=== PATIENT | female | born 1975 | race Caucasian/White ===

== ENCOUNTER 2017-10-04 18:21 | Emergency (ER) | payer SELFPAY ==
[~2017-10-04] VITALS: Ht 170.2 cm; Wt 81.6 kg
[~2017-10-04 18:21] MED LIST: CYCLOBENZAPRINE10 MG PO; CYMBALTA30 MG PO; GABAPENTIN300 MG PO; MORPHINE SULFAT30 M2 PO; MS CONTIN15 MG PO
== END 2017-10-04 19:46 | disposition left against medical advice (07) ==
LOC: ER 18:21
DX: L02.414 Cutaneous abscess of left upper limb (principal); H00.011 Hordeolum externum right upper eyelid

== ENCOUNTER 2018-10-26 23:26 | Emergency (ER) | payer SELFPAY ==
[~2018-10-26] VITALS: Ht 170.2 cm; Wt 81.6 kg
--- OUTSIDE RECORDS SUMMARY | 2018-10-26 23:28 | XMS REPORT | Clinical Summary ---
Author Author [facility] Organization [facility] Address Unknown Phone Unavailable Care Team Providers Care Laminator Name Role Phone Santos Lopez MD PCP Allergies No Known Allergies Medications End Date Status Medication Sig Dispensed Refills Start Date Active famotidine (PEPCID) 20 mg Take 1 tablet 180 tablet 1 tabletIndications: GERD by mouth 2 4 (gastroesophageal reflux times daily disease) For heartburn. Active nalOXone (EVZIO) 0.4 0.4 mg by 1 Inhaler 0 mg/0.4 mL Injection 6 AtInIndications: Chronic route Use if pain disorder signs of overdose (excessive sleepiness, depressed respiration, constricted pupils). Active traZODone (DESYREL) 100 Take 1 to 2 60 tablet 3 mg tabletIndications: tablets by 7 Mood disorder mouth nightly at bedtime as needed for Sleep.. Active cetirizine (ZYRTEC) 10 mg Take 1 tablet 90 tablet 3 tabletIndications: by mouth 7 Chronic frontal sinusitis daily. Active DULoxetine (CYMBALTA) 60 1 orally 60 capsule 3 mg delayed release twice a day. 8 capsuleIndications: Chronic pain disorder, Mood disorder Active acetaminophen (TYLENOL) Take 2 15 tablet 0 325 mg tabletIndications: tablets by 9 Cellulitis of face mouth every 6 hours as needed for Pain. Active mometasone (NASONEX) 50 2 Sprays by 17 g 0 mcg/actuation nasal each nostril 9 sprayIndications: Facial route 2 times swelling daily. 11/09/2018 Active traMADol (ULTRAM) 50 mg Take 1 tablet 60 tablet 3 tabletIndications: by mouth 2 9 Cellulitis of face times daily as needed for up to 2 days for Pain (Severe pain). Active gabapentin (NEURONTIN) Take 1 tablet 270 tablet 3 800 mg tabletIndications: by mouth 3 9 Chronic low back pain times daily. with left-sided sciatica, unspecified back pain laterality, Sciatica, unspecified laterality 08/08/2018 Discontinued clindamycin (CLEOCIN-T) 1 Apply to 60 mL 1 % lotionIndications: Acne affected area 7 vulgaris 2 times daily On face. 08/12/2018 Discontinued cyclobenzaprine Take 1 tablet 90 tablet 0 (FLEXERIL) 10 mg by mouth 3 7 tabletIndications: times daily Chronic low back pain as needed for Muscle Spasms. 08/12/2018 Discontinued triamcinolone (KENALOG) Apply to 80 g 3 0.025 % affected area 7 ointmentIndications: 2 times daily Eczema, unspecified type to rash behind ear. USE SPARINGLY. Do not use for face, armpits or groin. 08/08/2018 Discontinued fluconazole (DIFLUCAN) Take 1 tablet 3 tablet 3 150 mg tabletIndications: by mouth 7 Chronic vaginitis daily for 3 days. Repeat in 7 days as needed. 08/12/2018 Discontinued ciclesonide (ZETONNA) 37 use 1 spray 6.1 g 6 mcg/actuation nasal HFA in each 7 inhaler nostril daily. autosubstitut ed for Flonase per P&T 08/12/2018 Discontinued ciclesonide (ZETONNA) 37 Use 1 [place] 6.1 g 6 mcg/actuation nasal HFA in each 7 inhalerIndications: nostril Chronic seasonal allergic daily. rhinitis due to pollen 08/12/2018 Discontinued oxyCODONE-acetaminophen Take 1 tablet 0 10-325 mg per tablet by mouth 3 times daily as needed for Pain. 08/14/2018 Discontinued gabapentin (NEURONTIN) Take 1.5 135 tablet 1 600 mg tabletIndications: tablets by 8 Chronic low back pain mouth 3 times with left-sided sciatica, daily For unspecified back pain chronic back laterality, Sciatica, pain. unspecified laterality 08/12/2018 Discontinued naproxen (NAPROSYN) 500 Take 1 tablet 20 tablet 0 mg tabletIndications: by mouth 2 9 Chronic pain disorder times daily (with meals). 08/12/2018 Discontinued hydrocortisone 1 % Apply to 30 g 0 ointmentIndications: Bug affected area 9 bite, initial encounter 2 times daily. 08/12/2018 Discontinued loratadine (CLARITIN) 10 Take 1 tablet 30 tablet 0 mg tabletIndications: by mouth 9 Sinus headache daily. 08/12/2018 Discontinued acetaminophen-codeine Take 1 tablet 10 tablet 0 (TYLENOL/CODEINE #3) by mouth 9 300-30 mg per every 4 hours tabletIndications: as needed for Chronic pain disorder Pain. 08/12/2018 Discontinued sulfamethoxazole-trimetho Take 1 tablet 10 tablet 0 prim (BACTRIM DS) 800-160 by mouth 2 9 mg per tabletIndications: times daily Skin infection for 5 days. 08/12/2018 Discontinued mupirocin (BACTROBAN) 2 % Apply to 22 g 0 ointmentIndications: Skin affected area 9 infection 3 times daily for 7 days. 08/12/2018 Discontinued fluconazole (DIFLUCAN) Take One 2 tablet 0 150 mg tabletIndications: Tablet by 9 Antibiotic-induced yeast mouth Today. infection May Repeat in 72 hours.. 08/19/2018 acyclovir (ZOVIRAX) 200 Take 2 42 capsule 0 mg capsuleIndications: capsules by 9 Genital ulcer, female mouth 3 times daily for 7 days. 08/12/2018 Discontinued mupirocin calcium Apply to 15 g 2 (BACTROBAN) 2 % topical affected area 9 creamIndications: 2 times Cellulitis of face daily. 08/17/2018 ofloxacin (FLOXIN) 0.3 % Instill 3 5 mL 0 otic solutionIndications: Drops in each 9 Bug bite, initial ear 2 times encounter daily for 5 days. 08/25/2018 ofloxacin (OCUFLOX) 0.3 % Instill 2 5 mL 0 ophthalmic Drops in each 9 solutionIndications: Bug eye 4 times bite, initial encounter daily for 5 days. 08/14/2018 Discontinued traMADol (ULTRAM) 50 mg Take 1 tablet 30 tablet 0 tabletIndications: by mouth 9 Cellulitis of face every 8 hours as needed for up to 2 days for Pain (Severe pain). 08/22/2018 cephALEXin (KEFLEX) 500 Take 1 40 capsule 0 mg capsuleIndications: capsule by 9 Cellulitis of face mouth 4 times daily for 10 days. 08/22/2018 sulfamethoxazole-trimetho Take 1 tablet 20 tablet 0 prim (BACTRIM DS) 800-160 by mouth 2 9 mg per tabletIndications: times daily Cellulitis of face for 10 days. 08/22/2018 fluconazole (DIFLUCAN) Take 1 tablet 10 tablet 0 150 mg tabletIndications: by mouth 9 Facial abscess daily for 10 days. 08/19/2018 mupirocin (BACTROBAN) 2 % Apply to 22 g 0 ointmentIndications: affected area 9 Facial swelling 3 times daily for 7 days. 08/14/2018 Discontinued traMADol (ULTRAM) 50 mg Take 1 tablet 10 tablet 0 tabletIndications: Facial by mouth 9 swelling every 6 hours as needed for up to 3 days for Pain. 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 Amphetamine use disorder, moderate, dependence 07/31/2015 Acne vulgaris 04/09/2014 Vaginal discharge 09/23/2013 Adnexal pain 09/23/2013 Fracture, tooth 08/18/2013 Impaired fasting blood sugar 10/22/2012 Hypercholesterolemia 10/22/2012 Abnormal mammogram, unspecified 06/30/2012 Chronic pain disorder 06/30/2012 Health maintenance examination 06/30/2012 Routine health maintenance 07/25/2010 Substance induced mood disorder 07/25/2010 Agitation requiring sedation protocol Chronic prescription opiate use Amphetamine intoxication with perceptual disturbance Suicidal ideation Bug bite Facial swelling Genital ulcer, female 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 Inadequate pain control Encounters Care Team Description Date Type Specialty Santos Lopez MD Visit for screening mammogram (Primary Dx); Cellulitis of face; Chronic low back pain with left-sided sciatica, unspecified back pain laterality; Sciatica, unspecified laterality 08/14/2018 Office Visit Family Practice 08/14/2018 Travel Phuc Calixto DO Aisenberg, Gabriel M, MD Devidi, Manjari, MD Facial swelling (Primary Dx); Bug bite, initial encounter; Acute bacterial conjunctivitis of both eyes; Acute diffuse otitis externa of right ear; Cellulitis of face; Genital ulcer, female; Facial abscess 08/09/2018 Hospital - Encounter 08/12/2018 08/09/2018 Travel Verónica Schaffer NP Skin infection (Primary Dx); Antibiotic-induced yeast infection 08/08/2018 Same Day Family Practice 08/08/2018 Travel Chela Langston PA Kuo, Dick C, MD Bug bite, initial encounter (Primary Dx); Chronic pain disorder; Amphetamine use disorder, moderate, dependence; Moderate episode of recurrent major depressive disorder; Suicidal ideation; Sinus headache; Polysubstance abuse 07/24/2018 Emergency Emergency Medicine 07/24/2018 Travel after 10/25/2017 Immunizations Name Administration Dates Next Due Td Tetanus, diphtheria 08/25/2010 Toxoids Vaccine Family History Medical History Relation Name Comments Diabetes Father Heart Father Arthritis Mother Relation Name Status Comments Brother Alive 1 Father Mother Alive Sister Alive 1 Social History Date Tobacco Use Types Packs/Day Years Used Never Smoker Smokeless Tobacco: Never Used Tobacco Cessation: Counseling Given: No Drinks/Week oz/Week Comments Alcohol Use No Food Insecurity Answer Date Recorded Within the past 12 months, you worried that your Never true 01/01/2017 food would run out before you got money to buy more. Within the past 12 months, the food you bought Never true 01/01/2017 just didn't last and you didn't have money to get more. Sex Assigned at Date Recorded Not on file Industry Job Start Date Occupation Not on file Not on file Not on file Travel End Travel History Travel Start No recent travel history available. Last Filed Vital Signs Reading Time Taken Comments Vital Sign 107/69 08/14/2018 10:53 AM CDT Blood Pressure 80 08/14/2018 10:53 AM CDT Pulse 37.1 C (98.8 F) 08/14/2018 10:53 AM CDT Temperature 20 08/14/2018 10:53 AM CDT Respiratory Rate 97% 08/09/2018 6:31 PM CDT Oxygen Saturation - - Inhaled Oxygen Concentration 85.7 kg (189 lb) 08/14/2018 10:53 AM CDT Weight 171 cm (5' 7.32") 08/14/2018 10:53 AM CDT Height 29.32 08/14/2018 10:53 AM CDT Body Mass Index Plan of Treatment Care Team Description Date Type Specialty Linda Bell MD [address] [place] [address] requesting this location per (social welfare research worker) 10/28/2018 Office Visit Psychiatry Santos Lopez MD [address] [place] [address] 12/19/2018 Appointment Radiology Health Maintenance Due Date Last Done Comments Breast Cancer Scrn 2015 01/23/2012 (Yearly) IMM Influenza Seasonal 11/25/2018Nov to April (>/=19 yrs) Cervical Cancer Scrn (3 01/02/2020 01/01/2017 (Previously completed - Yrs) External), 09/23/2013 (Previously completed - External) Goals Goal Patient Associated Recent Progress Patient-Stat Author Goal Type Problems ed? Increase Physical Activity Lifestyle No Ayesha Durand Procedures Comments Procedure Name Priority Date/Time Associated Diagnosis DIFFERENTIAL, MANUAL-WAM Add-on 08/12/2018 4:55 AM CDT CBC Routine 08/12/2018 4:55 AM CDT MAGNESIUM Routine 08/12/2018 4:55 AM CDT PHOSPHORUS Routine 08/12/2018 4:55 AM CDT CBC/DIFF Routine 08/12/2018 4:55 AM CDT CALCIUM, IONIZED Routine 08/12/2018 4:55 AM CDT BASIC METABOLIC PANEL Routine 08/12/2018 4:55 AM CDT CBC Routine 08/11/2018 4:08 AM CDT PHOSPHORUS Routine 08/11/2018 4:08 AM CDT MAGNESIUM Routine 08/11/2018 4:08 AM CDT CBC/DIFF Routine 08/11/2018 4:08 AM CDT CALCIUM, IONIZED Routine 08/11/2018 4:08 AM CDT BASIC METABOLIC PANEL Routine 08/11/2018 4:08 AM CDT HUMAN HERPES VIRUS 6 PCR Routine 08/10/2018 1:47 PM CDT WOUND/ABSCESS CULTURE AND Routine 08/10/2018 GRAM STAIN 1:19 PM CDT WOUND/ABSCESS CULTURE AND Routine 08/10/2018 GRAM STAIN 1:19 PM CDT URINE DRUG SCREEN STAT 08/10/2018 12:26 PM CDT CHLAM/GC DNA AMPLI STAT 08/10/2018 12:25 PM CDT GONORRHEAE CULTURE Routine 08/10/2018 9:36 AM CDT FREE T4 Add-on 08/10/2018 4:23 AM CDT THYROID STIMULATING Add-on 08/10/2018 HORMONE (TSH) 4:23 AM CDT HEMOGLOBIN A1C Add-on 08/10/2018 4:23 AM CDT CBC Routine 08/10/2018 4:23 AM CDT VANCOMYCIN, TROUGH Routine 08/10/2018 4:23 AM CDT HEMOGLOBIN A1C Routine 08/10/2018 4:23 AM CDT HEPATITIS PANEL Routine 08/10/2018 4:23 AM CDT CBC/DIFF Routine 08/10/2018 4:23 AM CDT CALCIUM, IONIZED Routine 08/10/2018 4:23 AM CDT PHOSPHORUS Routine 08/10/2018 4:23 AM CDT MAGNESIUM Routine 08/10/2018 4:23 AM CDT COMPREHENSIVE METABOLIC Routine 08/10/2018 PANEL 4:23 AM CDT BLOOD CULTURE Timed 08/09/2018 6:29 PM CDT BLOOD CULTURE Timed 08/09/2018 6:28 PM CDT URINE DRUG SCREEN STAT 08/09/2018 6:28 PM CDT VANCOMYCIN, TROUGH Add-on 08/09/2018 3:59 PM CDT SYPHILIS SCREEN FOR STAT 08/09/2018 INFECTION 3:59 PM CDT XRAY CHEST 1 VIEW STAT 08/09/2018 Bug bite, initial 3:[address] MAXILLOFACIAL W STAT 08/09/2018 Facial swelling CONTRAST 2:29 PM CDT POCT URINE DIPSTICK - STAT 08/09/2018 2:22 PM CDT CBC STAT 08/09/2018 1:56 PM CDT CBC/DIFF STAT 08/09/2018 1:56 PM CDT BMP POC Routine 08/09/2018 1:55 PM CDT VBG POC Routine 08/09/2018 1:55 PM CDT BMP POC Routine 07/24/2018 1:09 PM CDT CBC/DIFF STAT 07/24/2018 12:50 PM CDT after 10/25/2017 Results * CBC (08/12/2018 4:55 AM CDT) Only the most recent of 4 results within the time period is included. WBC 8.0 4.5 - 11.0 K/uL [facility] RBC 3.34 (L) 4.20 - 5.40 M/uL [facility] Hemoglobin 10.0 (L) 12.0 - 16.0 g/dL [facility] Hematocrit 30.4 (L) 37.0 - 47.0 % [facility] MCV 91.0 82.0 - 92.0 fL [facility] MCH 29.9 27.0 - 32.0 pg [facility] MCHC 32.9 32.0 - 36.0 g/dL [facility] RDW 39.8 36.4 - 46.3 fL [facility] Platelet 257 150 - 400 K/uL [facility] Mean Platelet 9.5 9.4 - 12.4 fL [facility] Volume Percent NRBC 0.0 % [facility] Absolute NRBC 0.00 K/uL [facility] Specimen Blood Performing Organization Address City/State/Zipcode Phone Number [facility] [address] [place] [address] * DIFFERENTIAL, MANUAL-WAM (08/12/2018 4:55 AM CDT) Pathologist [facility] WBC 4.5 - 11.0 K/uL [facility] Neutrophil 72.0 (H) 34.0 - 70.0 % [facility] Lymphs 16.0 (L) 20.0 - 50.0 % [facility] Monocytes 9.0 5.0 - 12.0 % [facility] Eos 2.0 0.7 - 5.0 % [facility] Basos 0.0 (L) 0.1 - 1.2 % [facility] Atypical Lymph 1.0 (H) <=0.0 % [facility] Neutrophils 5.74 1.56 - 6.13 K/uL [facility] (Absolute) Lymphs 1.28 1.18 - 3.74 K/uL [facility] (Absolute) Monocytes(Absol 0.72 (H) 0.24 - 0.36 K/uL [facility] suzanna) Eos (Absolute) 0.16 0.04 - 0.36 K/uL [facility] Baso (Absolute) 0.00 (L) 0.01 - 0.08 K/uL [facility] Cells Counted [facility] Specimen Blood Performing Organization Address [facility] Phone Number [facility] [address] [place] [phone] * PHOSPHORUS (08/12/2018 4:55 AM CDT) Only the most recent of 3 results within the time period is included. Phosphorus 3.8 2.5 - 5.0 mg/dL [facility] Specimen Blood Performing Organization Address [facility] Phone Number [facility] [address] [place] [address] * MAGNESIUM (08/12/2018 4:55 AM CDT) Only the most recent of 3 results within the time period is included. Magnesium 1.8 (L) 1.9 - 2.7 mg/dL [facility] Specimen Blood Performing Organization Address [facility] Phone Number [facility] [address] [place] [address] * CALCIUM, IONIZED (08/12/2018 4:55 AM CDT) Only the most recent of 3 results within the time period is included. Calcium, 1.16 1.15 - 1.29 mmol/L [facility] Ionized Specimen Blood Performing Organization Address [facility] Phone Number [facility] [address] [place] [phone] * BASIC METABOLIC PANEL (08/12/2018 4:55 AM CDT) Only the most recent of 2 results within the time period is included. Sodium 141 136 - 145 mmol/L [facility] Potassium 3.7 3.5 - 5.1 mmol/L [facility] Chloride 101 98 - 107 mmol/L [facility] CO2 30 21 - 31 mmol/L [facility] Urea Nitrogen 13.0 7.0 - 25.0 mg/dL [facility] Creatinine 0.6 0.6 - 1.2 mg/dL [facility] Glucose 91 70 - 110 mg/dL [facility] Calcium, Total 8.1 (L) 8.6 - 10.3 mg/dL [facility] GFR, Estimated >60 mL/min/1.73 m2 [facility] Anion Gap 10 5 - 16 mmol/L [facility] Specimen Blood Performing Organization Address City/State/Zipcode Phone Number [facility] [address] [place], [place] [phone] * HUMAN HERPES VIRUS 6 PCR (08/10/2018 1:47 PM CDT) Pathologist [facility] Human Herpes Negative [facility] Virus 6 PCR Comment: This test was developed and its performance characteristics determined by [facility].It has not been cleared or approved by the Food and Drug Administration.The FDA has determined that such clearance or approval is not necessary. Specimen Other (Specify in Comments) - Vagina Narrative Performed At Performed at: - [facility] [address] [place], [id number] Arc Welding Machine Operator: Kerry Pryor MD, Phone:[phone] Specimen Comment: A duplicate report has been generated due to demographic updates. Performing Organization Address City/[facility] Phone Number [facility] [address] [place] [address] * WOUND/ABSCESS CULTURE AND GRAM STAIN (08/10/2018 1:19 PM CDT) Only the most recent of 2 results within the time period is included. Wound Culture METHICILLIN RESISTANT [facility] STAPHYLOCOCCUS AUREUS (AA) [facility] Wound Culture CORYNEBACTERIUM (A) [facility] Wound Culture ENTEROCOCCUS FAECALIS (A) [facility] Wound Culture EDIN DUBLINIENSIS (A) [facility] Gram Stain 4+ WBCs [facility] Gram Stain 4+ Gram positive cocci [facility] Gram Stain 4+ Gram variable rods [facility] Gram Stain 1+ Yeast [facility] Specimen Drainage - Auditory canal, Right Antibiotic Method Susceptibility Organism Clindamycin Resistant Methicillin resistant Staphylococcus aureus Comment: Corrected result: Previously reported as Susceptible (<=0.5 ug/mL) on 08/13/2018 at 1529 CDT. Inducible Clindamycin Resistance POSITIVE Methicillin resistant Staphylococcus aureus Erythromycin >4 ug/mL: Resistant Methicillin resistant Staphylococcus aureus Levofloxacin <=1 ug/mL: Susceptible Methicillin resistant Staphylococcus aureus Oxacillin >2 ug/mL: Resistant Methicillin resistant Staphylococcus aureus Penicillin G >1 ug/mL: Resistant Methicillin resistant Staphylococcus aureus Rifampin <=0.5 ug/mL: Susceptible Methicillin resistant Staphylococcus aureus Trimethoprim-Sulfamethoxazole <=0.5/9.5 ug/mL: Susceptible Methicillin resistant Staphylococcus aureus Tetracycline <=0.5 ug/mL: Susceptible Methicillin resistant Staphylococcus aureus Vancomycin 1 ug/mL: Susceptible Methicillin resistant Staphylococcus aureus Ampicillin 1 ug/mL: Susceptible Enterococcus faecalis Daptomycin 2 ug/mL: Susceptible Enterococcus faecalis Gentamicin-Synergy <=500 ug/mL: Susceptible Enterococcus faecalis Linezolid <=1 ug/mL: Susceptible Enterococcus faecalis Streptomycin Synergy <=1,000 ug/mL: Susceptible Enterococcus faecalis Tetracycline >8 ug/mL: Resistant Enterococcus faecalis Vancomycin 2 ug/mL: Susceptible Enterococcus faecalis Performing Organization Address [facility] Phone Number [facility] [address] [place] [address] * URINE DRUG SCREEN (08/10/2018 12:26 PM CDT) Only the most recent of 2 results within the time period is included. Opiate, Ur Negative Negative [facility] Comment: Calibrated Standard: Morphine Positive if urine level > lo=103 ng/dL Amphetamine Negative Negative [facility] Comment: Calibrated Standard: D-Methamphetamine Positive if urine level > tl=9531 ng/mL Barbiturate Negative Negative [facility] Comment: Calibrated Standard: Secobarbital Positive if urine level is > kf=727 ng/mL Benzodiazepine Negative Negative [facility] Comment: Calibrated Standard: Lormethazepam Positive if urine level is > hs=066 ng/mL Cocaine Negative Negative [facility] Comment: Calibrated Standard: Benzoylecgonine Positive if urine level > gc=400 ng/dL PCP Negative Negative [facility] Comment: Calibrated Standard: Phencyclidine Positive if urine level > or=25 ng/dL Cannabinoid Negative Negative [facility] Comment: Calibrated Standard: 11 nor-delta(9)-THC carboxylic acid Positive if urine level > or=50 ng/mL Specimen Urine - Voided, urine Performing Organization Address [facility] Phone Number [facility] [address] [place] [address] * CHLAM/GC DNA AMPLI (08/10/2018 12:25 PM CDT) Chlamydia Negative Negative [facility] trachomatis [facility] N. gonorrhoeae Negative Negative [facility] Specimen Genital - Voided, urine Narrative Performed At This test utilizes True&Co Aptima Combo 2 Assay for target amplification of rRNA [facility] for the qualitative detection of Chlamydia trachomatis and Neisseria gonorrhoeae. Performing Organization Address [facility] Phone Number [facility] [address] [place] [address] * GONORRHEAE CULTURE (08/10/2018 9:36 AM CDT) [facility] GC Culture No Neisseria gonorrhoeae [facility] isolated [facility] Specimen Eye - Eye, left Performing Organization Address [facility] Phone Number [facility] [address] [place] [address] * HEMOGLOBIN A1C (08/10/2018 4:23 AM CDT) Only the most recent of 2 results within the time period is included. [facility] Hemoglobin A1c 5.4 4.3 - 6.1 % [facility] Estimated 108 70 - 110 mg/dL [facility] Average Glucose Specimen Blood Performing Organization Address [facility] Phone [facility] [address] [place] [address] * COMPREHENSIVE METABOLIC PANEL (08/10/2018 4:23 AM CDT) [facility] Sodium 137 136 - 145 mmol/L [facility] Potassium 3.6 3.5 - 5.1 mmol/L [facility] Chloride 102 98 - 107 mmol/L [facility] CO2 32 (H) 21 - 31 mmol/L [facility] Glucose 124 (H) 70 - 110 mg/dL [facility] Calcium, Total 7.4 (L) 8.6 - 10.3 mg/dL [facility] Urea Nitrogen 14.0 7.0 - 25.0 mg/dL [facility] Creatinine 0.6 0.6 - 1.2 mg/dL [facility] Alkaline 41 34 - 104 U/L [facility] Phosphatase ALT 9 7 - 52 U/L [facility] AST 14 13 - 39 U/L [facility] Total Bilirubin 0.5 0.2 - 1.2 mg/dL [facility] Total Protein 4.7 (L) 6.0 - 8.3 g/dL [facility] GFR, Estimated >60 mL/min/1.73 m2 [facility] Albumin 2.6 (L) 3.7 - 5.3 g/dL [facility] Anion Gap 3 (L) 5 - 16 mmol/L [facility] Specimen Blood Narrative Performed At Please draw vanc trough 30 minutes prior to 4th vanc dose. [facility] Performing Organization Address [facility] Phone Number [facility] [address] [place], [place] [id number] * THYROID STIMULATING HORMONE (TSH) (08/10/2018 4:23 AM CDT) TSH 0.43 (L) 0.57 - 3.74 uIU/mL [facility] Comment: If , please see the following reference ranges (not verified by lab): 1st Trimester: 0.05 -3.70 uIU/mL 2nd Trimester: 0.31 -4.35 uIU/mL 3rd Trimester: 0.41 - 5.18 uIU/mL Specimen Blood Narrative Performed At Please draw vanc trough 30 minutes prior to 4th vanc dose. [facility] Performing Organization Address [facility] Phone Number [facility] [address] [place] [phone] * FREE T4 (08/10/2018 4:23 AM CDT) Free T4 0.97 0.61 - 1.18 ng/dl [facility] Specimen Blood Narrative Performed At Please draw vanc trough 30 minutes prior to 4th vanc dose. [facility] Performing Organization [facility] Phone Number [facility] [address] [place] [address] * VANCOMYCIN, TROUGH (08/10/2018 4:23 AM CDT) Only the most recent of 2 results within the time period is included. Vancomycin, 7.4 (L) 10.0 - 20.0 ug/mL [facility] Trough Specimen Blood Narrative Performed At Please draw vanc trough 30 minutes prior to 4th vanc dose. [facility] Performing Organization Address [facility] Phone [facility] [address] [place] [address] * HEPATITIS PANEL (08/10/2018 4:23 AM CDT) Hep C Vir Ab Negative Negative [facility] Hep B Surface Negative Negative [facility] Hep A Vir Ab Negative Negative [facility] Hep B Core Ab Negative Negative [facility] Specimen Blood Performing Organization Address City/[facility] Phone [facility] [address] [place] [address] * BLOOD CULTURE (08/09/2018 6:29 PM CDT) Only the most recent of 2 results within the time period is included. Blood Culture No growth 5 days [facility] Specimen Blood - Arm, right Performing Organization Address [facility] Phone Number [facility] [address] [place] [address] * SYPHILIS SCREEN FOR INFECTION (08/09/2018 3:59 PM CDT) TPA NEGATIVE Negative, Equivocal [facility] Final Report NEGATIVE Negative [facility] Specimen Blood Performing Organization Address [facility] Phone Number [facility] [address] [place] [address] * XRAY CHEST 1 VIEW (08/09/2018 3:30 PM CDT) Specimen Impressions Performed At IMPRESSION: SMS Ill-defined questionable haziness along the medial right lower lung. Dedicated two-view chest x-ray is recommended. This [facility] radiology report is a preliminary resident dictation until finalized by an attending.Changes to this preliminary report may occur in an additional preliminary or finalized version. Dictated By: Arelis Adams MD, 08/09/2018 4:02 PM I have reviewed the study and agree with the findings in this report. Signed By: Shruthi Crump MD, 08/09/2018 4:05 PM Narrative Performed At EXAM: XR CHEST 1 VIEW [facility] DATE: 08/09/2018 3:35 PM INDICATION: hypoxia. Bug bite, initial encounter COMPARISON: None TECHNIQUE: AP chest FINDINGS: Lines, tubes and hardware: None. Lungs and pleura: Given for slight low lung volumes, ill-defined haziness overlying the medial right lower lung. The costophrenic sulci are sharp, without pleural effusion. No pneumothorax. Heart and mediastinum: The cardiomediastinal silhouette is unremarkable. Bones: No acute bony abnormality. Procedure Note Interface, Rad/Mammog In - 08/09/2018 4:10 PM CDT EXAM: XR CHEST 1 VIEW DATE: 08/09/2018 3:35 PM INDICATION: hypoxia. Bug bite, initial encounter COMPARISON: None TECHNIQUE: AP chest FINDINGS: Lines, tubes and hardware: None. Lungs and pleura: Given for slight low lung volumes, ill-defined haziness overlying the medial right lower lung. The costophrenic sulci are sharp, without pleural effusion. No pneumothorax. Heart and mediastinum: The cardiomediastinal silhouette is unremarkable. Bones: No acute bony abnormality. IMPRESSION IMPRESSION: Ill-defined questionable haziness along the medial right lower lung. Dedicated two-view chest x-ray is recommended. This [facility] radiology report is a preliminary resident dictation until finalized by an attending. Changes to this preliminary report may occur in an additional preliminary or finalized version. Dictated By: Arelis Adams MD, 08/09/2018 4:02 PM I have reviewed the study and agree with the findings in this report. Signed By: Shruthi Crump MD, 08/09/2018 4:05 PM Performing Organization Address City/State/Zipcode Phone Number SMS * CT MAXILLOFACIAL W CONTRAST (08/09/2018 2:29 PM CDT) Specimen Impressions Performed At IMPRESSION: SMS 1.Diffuse right facial subcutaneous fat stranding and edema with thickening of the fat pad, consistent with cellulitis. No organized abscess or drainable fluid collections at this time 2.Submandibular lymphadenopathy, right greater than left, likely reactive This [facility] radiology report is a preliminary resident dictation until finalized by an attending.Changes to this preliminary report may occur in an additional preliminary or finalized version. Dictated By: Arelis Adams MD, 08/09/2018 3:00 PM I have reviewed the study and agree with the findings in this report. Signed By: Galen Velez MD, 08/09/2018 3:32 PM Narrative Performed At EXAM: CT FACE WITH CONTRAST [facility] DATE: 08/09/2018 2:30 PM INDICATION: Maxillary, facial abscess. Facial swelling COMPARISON: None. TECHNIQUE: Volumetric CT of the face is acquired with contrast. Axial, coronal and sagittal images are provided. IV contrast: 100 mL Omnipaque 300 DLP: 960.17 FINDINGS: There is diffuse right facial subcutaneous fat stranding and swelling, with thickening of the fat pad. No organized abscess or drainable fluid collection is identified. Multiple enlarged lymph nodes are present, right greater than left. Example includes a right submandibular lymph node measuring up to 1 cm x 1.2 cm (series 3 image 9). The airway is patent without lesions. Carotid and vertebral arteries are patent. Jugular veins are patent. No acute intraorbital abnormalities. No acute osseous abnormalities. Procedure Note Interface, Rad/Mammog In - 08/09/2018 3:37 PM CDT EXAM: CT FACE WITH CONTRAST DATE: 08/09/2018 2:30 PM INDICATION: Maxillary, facial abscess. Facial swelling COMPARISON: None. TECHNIQUE: Volumetric CT of the face is acquired with contrast. Axial, coronal and sagittal images are provided. IV contrast: 100 mL Omnipaque 300 DLP: 960.17 FINDINGS: There is diffuse right facial subcutaneous fat stranding and swelling, with thickening of the fat pad. No organized abscess or drainable fluid collection is identified. Multiple enlarged lymph nodes are present, right greater than left. Example includes a right submandibular lymph node measuring up to 1 cm x 1.2 cm (series 3 image 9). The airway is patent without lesions. Carotid and vertebral arteries are patent. Jugular veins are patent. No acute intraorbital abnormalities. No acute osseous abnormalities. IMPRESSION IMPRESSION: 1. Diffuse right facial subcutaneous fat stranding and edema with thickening of the fat pad, consistent with cellulitis. No organized abscess or drainable fluid collections at this time 2. Submandibular lymphadenopathy, right greater than left, likely reactive This [facility] radiology report is a preliminary resident dictation until finalized by an attending. Changes to this preliminary report may occur in an additional preliminary or finalized version. Dictated By: Arelis Adams MD, 08/09/2018 3:00 PM I have reviewed the study and agree with the findings in this report. Signed By: Galen Velez MD, 08/09/2018 3:32 PM Performing Organization Address City/State/Zipcode Phone Number SMS * POCT URINE DIPSTICK - (08/09/2018 2:22 PM CDT) pass Control negative * VBG POC (08/09/2018 1:55 PM CDT) pH, Jaime POC 7.49 (H) 7.33 - 7.43 [facility] HCO3, Jaime POC 31 (H) 22 - 26 mmol/L [facility] TCO2, POC 33 (H) 21 - 32 mmol/L [facility] PO2, Venous POC 20 (L) 50 - 75 mm Hg [facility] ([facility]) pCO2,Jaime POC 41.1 38 - 50 mmHg [facility] Base Excess Jaime 7 mmol/L [facility] POC Sample Type IVEN [facility] Lactic Acid POC 1.0 0.4 - 2.0 mmol/L [facility] % Sat, Jaime POC 37 % [facility] Specimen Blood, venous Performing Organization Address [facility] Phone Number [facility] [address] [place], [place] [phone] * [facility] POC (08/09/2018 1:55 PM CDT) Sodium POC 133 (L) 136 - 145 mmol/L [facility] Potassium POC 4.0 3.5 - 5.1 mmol/L [facility] Chloride POC 94 (L) 98 - 107 mmol/L [facility] TCO2 POC 32 21 - 32 mmol/L [facility] Urea Nitrogen 17 7 - 18 mg/dL [facility] POC Creatinine POC 0.7 0.6 - 1.3 mg/dL [facility] Glucose POC 121 (H) 74 - 106 mg/dL [facility] Ionized Calcium 0.99 (L) 1.15 - 1.29 mmol/L [facility] POC GFR, Estimated >60 mL/min/1.73 m2 [facility] Hemoglobin POC 12.6 12 - 16 g/dL [facility] Hematocrit POC 37.0 37.0 - 47.0 % [facility] Specimen Blood, venous Performing Organization Address [facility] Phone Number [facility] [address] [place], [place] [phone] * [facility] POC (07/24/2018 1:09 PM CDT) CO2 POC 27 21 - 32 mmol/L [facility] Chloride POC 98 98 - 107 mmol/L [facility] Potassium POC 3.5 3.50 - 5.10 mmol/L [facility] Sodium POC 136 136 - 145 mmol/L [facility] Glucose POC 83 74 - 106 mg/dL [facility] Urea Nitrogen 23 (H) 7 - 18 mg/dL [facility] POC 1 Creatinine POC 0.6 0.6 - 1.3 mg/dL [facility] Calcium Ionized 1.16 1.15 - 1.29 mmol/L [facility] POC 1 Hemoglobin POC 12.6 12.0 - 16.0 g/dL [facility] Hematocrit POC 37.0 37.0 - 47.0 % [facility] GFR, Estimated >60 mL/min/1.73 m2 [facility] GFR, Estim, >60 mL/min/1.73 m2 [facility] Afr-Am 1 Specimen Performing Organization Address City/State/Zipcode Phone Number [facility] * CBC/DIFF (07/24/2018 12:50 PM CDT) WBC 10.0 4.5 - 11.0 K/uL [facility] RBC 3.76 (L) 4.20 - 5.40 M/uL [facility] Hemoglobin 11.9 (L) 12.0 - 16.0 g/dL [facility] Hematocrit 34.4 (L) 37.0 - 47.0 % [facility] MCV 92 82 - 92 fL [facility] MCH 31.6 27.0 - 32.0 pg [facility] MCHC 34.6 32.0 - 36.0 g/dL [facility] RDW 41.9 36.4 - 46.3 fL [facility] Platelets 277 150 - 400 K/uL [facility] Mean Platelet 9.5 9.4 - 12.4 fL [facility] Volume 2 Percent NRBC 0.0 [facility] Absolute NRBC 0.00 [facility] Neutrophils 71.8 (H) 34.0 - 70.0 % [facility] Lymphs 17.9 (L) 20.0 - 50.0 % [facility] Monocytes 8.2 5.0 - 12.0 % [facility] Eos 1.6 0.7 - 5.0 % [facility] Basos 0.2 0.1 - 1.2 % [facility] Immature 0.3 0.0 - 0.5 [facility] Granulocytes 2 Neutrophils 7.15 (H) 1.56 - 6.13 K/uL [facility] (Absolute) 2 Lymphs 1.78 1.18 - 3.74 K/uL [facility] (Absolute) 2 Monocytes(Absol 0.82 (H) 0.24 - 0.36 K/uL [facility] suzanna) 2 Eos (Absolute) 0.16 0.04 - 0.36 K/uL [facility] Baso (Absolute) 0.02 0.01 - 0.08 K/uL [facility] Immature Grans 0.03 0.00 - 0.03 K/uL [facility] (Abs) 2 Specimen Blood Performing Organization Address City/State/Zipcode Phone Number [facility] after 10/25/2017 Insurance Type Payer Benefit Subscriber ID Effective Phone Address Plan / Dates Group [employer] HOMELESS xxxxxx 2018- [phone] [id number] [place] [address] Advance Directives Date Inactivated Comments Code Status Date Activated 08/12/2018 1:33 PM Full Code 08/09/2018 5:37 PM
--- OUTSIDE RECORDS SUMMARY | 2018-10-26 23:29 | XMS REPORT | Clinical Summary ---
Author Author [facility] Organization [facility] Address Unknown Phone Unavailable Care Team Providers Care Clinical Safety Manager Name Role Phone Asked, No Pcp PCP Unavailable Allergies No Known Allergies Medications End Date Status Medication Sig Dispensed Refills Start Date Active ibuprofen (ADVIL,MOTRIN) Take 1 tablet 20 tablet 0 600 MG tablet (600 mg 8 total) by mouth every 6 (six) hours as needed for mild pain for up to 20 doses. Active Problems Not on file Encounters Care Team Description Date Type Specialty Rito Fang MD Polysubstance abuse (HCC) (Primary Dx) 06/25/2018 Emergency Emergency Medicine after 10/25/2017 Social History Date Tobacco Use Types Packs/Day Years Used Current Some Day Smoker Smokeless Tobacco: Current User Drinks/Week oz/Week Comments Alcohol Use No Sex Assigned at Date Recorded Not on file Industry Job Start Date Occupation Not on file Not on file Not on file Travel End Travel History Travel Start No recent travel history available. Last Filed Vital Signs Reading Time Taken Comments Vital Sign 127/77 06/25/2018 1:30 PM CDT Blood Pressure 80 06/25/2018 1:30 PM CDT Pulse 36.7 C (98 F) 06/25/2018 10:19 AM CDT Temperature 16 06/25/2018 1:30 PM CDT Respiratory Rate 99% 06/25/2018 1:30 PM CDT Oxygen Saturation - - Inhaled Oxygen Concentration - - Weight 170.2 cm (5' 7") 06/25/2018 10:19 AM CDT Height - - Body Mass Index Plan of Treatment Not on file Procedures Comments Procedure Name Priority Date/Time Associated Diagnosis GRAM STAIN STAT 06/25/2018 11:27 AM CDT URINE CULTURE STAT 06/25/2018 11:27 AM CDT ESTIMATED GFR STAT 06/25/2018 10:55 AM CDT SALICYLATE LEVEL STAT 06/25/2018 10:55 AM CDT ACETAMINOPHEN LEVEL STAT 06/25/2018 10:55 AM CDT HCG QUALITATIVE, SERUM STAT 06/25/2018 SCREEN 10:55 AM CDT URINE DRUGS OF ABUSE STAT 06/25/2018 SCREEN 10:55 AM CDT ALCOHOL LEVEL, BLOOD STAT 06/25/2018 10:55 AM CDT URINALYSIS SCREEN AND STAT 06/25/2018 MICROSCOPY, WITH REFLEX 10:55 AM CDT TO CULTURE T4, FREE STAT 06/25/2018 10:55 AM CDT CREATINE KINASE, TOTAL STAT 06/25/2018 (CPK) 10:55 AM CDT THYROID STIMULATING STAT 06/25/2018 HORMONE 10:55 AM CDT COMPREHENSIVE METABOLIC STAT 06/25/2018 PANEL 10:55 AM CDT HC COMPLETE BLD COUNT STAT 06/25/2018 W/AUTO DIFF 10:55 AM CDT after 10/25/2017 Results * Gram stain (06/25/2018 11:27 AM CDT) Gram stain No WBC's or organisms seen. TYLER result Comment: SCIENTOLOGIST Specimen Information HOSPITAL Specimen Source: Urine Specimen Site: Clean catch Specimen Urine Performing Organization Address City/[facility]/Zipcode Phone Number [facility] DEPARTMENT OF [address] [place] [address] PATHOLOGY AND [facility] SCIENTOLOGIST [address] [place] [id number] HOSPITAL * Urine culture (06/25/2018 11:27 AM CDT) Urine culture Mixed serjio 10-4 col/cc [facility] isolate Comment: SCIENTOLOGIST Specimen Information HOSPITAL Specimen Source: Urine Specimen Site: Clean catch Specimen Urine Performing Organization Address City/[facility]/Zipcode Phone Number [facility] DEPARTMENT OF [address] [place] [id number] PATHOLOGY AND GENOMIC MEDICINE [facility] [address] * Urinalysis screen and microscopy, with reflex to culture (06/25/2018 10:55 AM CDT) Pathologist [facility] Specimen site Clean catch [facility] Color, UA Cassie [facility] Appearance, UA Slightly-Cloudy [facility] Specific 1.026 1.001 - 1.035 [facility] gravity, UA [facility] pH, UA 5.0 5.0 - 8.5 [facility] Protein, UA 1+ (A) Negative [facility] Glucose, UA Negative Negative [facility] Ketones, UA Negative Negative [facility] Bilirubin, UA 2+ Negative [facility] Blood, UA Large (A) Negative [facility] Nitrite, UA Negative Negative [facility] Urobilinogen, 4.0 (A) <2.0 [facility] Leukocyte Small (A) Negative [facility] esterase, UA [facility] Epithelial Many /HPF [facility] cells, [facility] WBC, UA 0-5 0 - 4 /HPF [facility] RBC, UA 21-40 (H) 0 - 5 /HPF [facility] Bacteria, UA Trace None seen [facility] Yeast, UA None seen [facility] Yeast with None seen [facility]phae[facility] Hyaline casts, 3-5 /LPF [facility] Specimen Urine Performing Organization Address City/State/Zipcode [place] Number [place] [address] [place] [address] PATHOLOGY AND GENOMIC MEDICINE [facility] [id number] [place] [address] [place] [address] [facility] * Estimated GFR (06/25/2018 10:55 AM CDT) [facility] Estimated GFR >=90 mL/min/1.73 m2 [facility] Comment: [facility] rpretation G1 >=90 Normal or high G2 60-89Mildly decreased [id number] Mildly to moderately decreased [id number] Moderately to severely decreased G4 15-29Severely decreased G5 <15Kidney failure The eGFR was calculated using the Chronic Kidney Disease Epidemiology Collaboration (CKD-EPI) equation. Interpretation is based on recommendations of the National Kidney Foundation-Kidney Disease Outcomes Quality Initiative (NKF-KDOQI) published in 2014. Specimen Plasma specimen Performing Organization Address [facility] Phone Number [address] [place] [address] PATHOLOGY AND GENOMIC MEDICINE [address] * Urine drugs of abuse screen (06/25/2018 10:55 AM CDT) Amphetamine Positive (A) [facility] screen, urine [facility] Methamphetamine Positive (A) [facility] screen, urine [facility] Barbiturate Negative [facility] screen, urine [facility] Benzodiazepine Negative [facility] screen, urine [facility] Cocaine screen, Negative [facility] urine [facility] Methadone Negative [facility] screen, urine [facility] Opiates screen, Negative [facility] urine [facility] Phencyclidine Negative [facility] screen, urine [facility] Cannabinoid Positive (A) [facility] screen, urine [facility] Tricyclic Negative [facility] screen, urine Comment: [facility] Drug screen [facility] concentration of detectability Amphetamines 1000 ng/mL Methamphetamines 1000 ng/mL Barbiturates 300 ng/mL Benzodiazepines 300 ng/mL Cocaine 300 ng/mL Methadone 300 ng/mL Opiates 300 ng/mL Phencyclidine 25 ng/mL Cannabinoids 50 ng/mL Tricyclics 1000 ng/mL Negative test results indicates presumptive evidence of lack of clinically significant drug concentration in this urine specimen. Positive test results are presumptive evidence of clinically significant drug concentration in this urine specimen. Testing performed for medical purposes only. Specimen Urine Performing Organization Address [facility] Phone Number [address] [place] [address] PATHOLOGY AND [facility] [address] * CBC with platelet and differential (06/25/2018 10:55 AM CDT) WBC 10.55 4.50 - 11.00 k/uL [facility] RBC 3.91 (L) 4.20 - 5.50 m/uL [facility] HGB 12.0 12.0 - 16.0 g/dL [facility] HCT 34.8 (L) 37.0 - 47.0 % [facility] MCV 89.0 82.0 - 100.0 fL [facility] MCH 30.7 27.0 - 34.0 pg [facility] MCHC 34.5 31.0 - 37.0 g/dL [facility] RDW - SD 43.2 37.0 - 55.0 fL [facility] MPV 9.2 8.8 - 13.2 fL [facility] Platelet count 341 150 - 400 k/uL [facility] Nucleated RBC 0.00 /100 WBC [facility] Neutrophils 72.5 (H) 39.0 - 69.0 % [facility] Lymphocytes 17.9 (L) 25.0 - 45.0 % [facility] Monocytes 8.9 0.0 - 10.0 % [facility] Eosinophils 0.3 0.0 - 5.0 % [facility] Basophils 0.3 0.0 - 1.0 % [facility] Specimen Blood Performing Organization Address City/[facility] Phone Number [address] [place] [address] PATHOLOGY AND GENOMIC MEDICINE [address] * hCG qualitative, serum screen (06/25/2018 10:55 AM CDT) Pathologist [facility] hCG Negative [facility] Specimen Blood Performing Organization Address City/[facility] Phone Number [address] [place] [address] PATHOLOGY AND GENOMIC MEDICINE [address] * Thyroid stimulating hormone (06/25/2018 10:55 AM CDT) Pathologist [facility] TSH 1.45 0.27 - 4.20 uIU/mL [facility] Specimen Plasma specimen Performing Organization Address [facility] Phone Number [address] [place] [address] PATHOLOGY AND GENOMIC MEDICINE [address] * T4, free (06/25/2018 10:55 AM CDT) Pathologist [facility] T4, free 1.24 0.90 - 1.70 ng/dL [facility] Specimen Plasma specimen Performing Organization Address [facility] [place] Phone Number [address] [place] [address] PATHOLOGY AND GENOMIC MEDICINE [address] * Creatine kinase, total (CPK) (06/25/2018 10:55 AM CDT) [facility] Creatine kinase 89 26 - 192 U/L [facility] Specimen Plasma specimen Performing Organization Address [facility] [place] Phone Number [address] [place] [address] PATHOLOGY AND GENOMIC MEDICINE [address] * Alcohol level, blood (06/25/2018 10:55 AM CDT) [facility] Alcohol None Detected mg/dL [facility] Comment: [facility] None Detected Legal Intoxication in [place]80 mg/dL (0.08%) - Whole Blood Toxic Concentration 200 mg/dL (0.2%) Potentially Fatal3 50 - 500 mg/dL (0.35 - 0.5%) Alcohol percent None Detected % [facility] Specimen Plasma specimen Performing Organization Address [facility] [place] Phone Number [address] [place] [address] PATHOLOGY AND GENOMIC MEDICINE [address] * Acetaminophen level (06/25/2018 10:55 AM CDT) [facility] Acetaminophen <5.0 (A) 10.0 - 30.0 ug/mL [facility] level Comment: [facility] 10-30 ug/mL Possible Toxicity 150-200 ug/mL Probable Toxicity >200 ug/mL Specimen Plasma specimen Performing Organization Address City/[facility]/Zipcode Phone Number [address] [place] [address] PATHOLOGY AND GENOMIC MEDICINE [address] * Salicylate level (06/25/2018 10:55 AM CDT) Salicylate <3.0 3.0 - 30.0 mg/dL [facility] Specimen Plasma specimen Performing Organization Address [facility] Phone Number [address] [place] [address] PATHOLOGY AND GENOMIC MEDICINE [address] * Comprehensive metabolic panel (06/25/2018 10:55 AM CDT) Sodium 137 135 - 148 mEq/L [facility] Potassium 3.6 3.5 - 5.0 mEq/L [facility] Chloride 101 98 - 112 mEq/L [facility] CO2 24 24 - 31 mEq/L [facility] Anion gap 12@ANIO 7 - 15 mEq/L [facility] BUN 21 (H) 6 - 20 mg/dL [facility] Creatinine 0.70 0.50 - 0.90 mg/dL [facility] Glucose 108 (H) 65 - 99 mg/dL [facility] Calcium 9.2 8.3 - 10.2 mg/dL [facility] Protein 7.1 6.3 - 8.3 g/dL [facility] Comment: [facility] 4.6-7.0 g/dL 1 week 4.4-7.6 g/dL 7 months-1year 5.1-7.3 g/dL 1-2 years5.6-7 .5 g/dL >3 years6.0-8 .0 g/dL 18-150 6.3-8.3 g/dL Albumin 3.7 3.5 - 5.0 g/dL [facility] A/G ratio 1.1 0.7 - 3.8 [facility] Alkaline 52 35 - 104 U/L [facility] phosphatase [facility] AST 16 10 - 35 U/L [facility] ALT 13 5 - 50 U/L [facility] Total bilirubin 0.5 0.0 - 1.2 mg/dL [facility] Specimen Plasma specimen Performing Organization Address City/State/Zipcode [place] Number [place] [address] [place] [address] PATHOLOGY AND GENOMIC MEDICINE [facility] [address] [place] [address] [facility] after 10/25/2017 Advance Directives For more information, please contact: [phone] Patient Size Roller Operator Explanation Type Date Recorded Advance Directives, 06/25/2018 10:37 AM Living Will and Medical Power of Embedded Software Developer
--- NOTE | 2018-10-26 23:30 | NUR ---
RM 10 CLEARED OF ALL EQUIPMENT PER SUICIDAL PROTOCOL. OBTAINED PT'S PERSONAL BELONGINGS AND PLACED IN NURSES STATION. PT PROVIDED PAPER SCRUBS. RN IN RM FOR 1 ON 1 CONTINUOUS LINE OF SITE OBSERVATION.
--- OUTSIDE RECORDS SUMMARY | 2018-10-26 23:30 | XMS REPORT ---
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 Allergies, Adverse Reactions, Alerts Allergy Name Allergy Type Status Severity Reaction(s) Onset Date Inactive Date Treating Clinician Comments No Known Allergies DA Active U 2018-06-25 00:00:00 No Known Allergies DA Active U 2018-05-24 00:00:00 No Known Allergies DA Active U 2018-05-15 00:00:00 No Known Allergies DA Active U 2015-01-29 00:00:00 Medications This patient has no known medications. Encounters Start Date/Time End Date/Time Encounter Type Admission Type Attending Clinicians Care Facility Care Department Encounter ID 2018-08-09 15:14:24 2018-08-09 15:14:24 Emergency [facility] [id number] 2018-08-09 14:04:08 2018-08-09 14:04:08 Emergency [facility] [id number] 2018-08-09 13:03:16 2018-08-09 13:03:16 Inpatient [facility] [id number] 2018-08-08 13:47:27 2018-08-08 13:47:27 Outpatient [facility] [id number] 2017-09-23 00:00:00 2017-09-23 00:00:00 Outpatient [facility] [id number] 2017-06-10 00:00:00 2017-06-10 00:00:00 Outpatient [facility] [id number] 2017-06-04 00:00:00 2017-06-04 00:00:00 Outpatient [facility] [id number] 2017-04-03 13:11:14 2017-04-03 13:11:14 Outpatient [facility] [id number] 2017-03-21 00:00:00 2017-03-21 00:00:00 Outpatient [facility] [id number] 2017-02-19 00:00:00 2017-02-19 00:00:00 Outpatient [facility] [id number] 2017-02-15 12:10:29 2017-02-15 12:10:29 Outpatient [facility] [id number] 2017-02-12 00:00:00 2017-02-12 00:00:00 Outpatient [facility] [id number] 2017-01-28 00:00:00 2017-01-28 00:00:00 Outpatient [facility] [id number] 2017-01-21 00:00:00 2017-01-21 00:00:00 Outpatient [facility] [id number] 2017-01-02 00:00:00 2017-01-02 00:00:00 Outpatient [facility] [id number] 2017-01-01 15:27:15 2017-01-01 15:27:15 Outpatient [facility] [id number] 2017-01-01 15:16:42 2017-01-01 15:16:42 Outpatient [facility] [id number] 2016-11-21 08:52:54 2016-11-21 08:52:54 Outpatient [facility] [id number] 2016-09-05 00:00:00 2016-09-05 00:00:00 Outpatient [facility] [id number] 2016-08-30 16:14:41 2016-08-30 16:14:41 Outpatient [facility] [id number] Results Test Description Test Time Test Comments Text Results Atomic Results Result Comments ACETAMINOPHEN 2018-10-14 19:18:00 ACETAMINOPHEN (test code=ACET) < 10 mcg/mL 10-30 A RANGE OF 10-30 mcg/mL IS A THERAPEUTIC RANGE. TOXIC CONCENTRATIONS: >150 mcg/mL AT 4 HOURS AFTER INGESTION >=50 mcg/mL AT 12 HOURS AFTER INGESTION [id number] 19:18:00* Test Item Value Reference Range Comments SALICYLATE (test code=TERESA) < 1.7 mg/dL 2.8-20.0 URINALYSIS [id number] 13:53:00* Test Item Value Reference Range Comments UA COLOR (test code=COLU) YELLOW YELLOW UA APPEARANCE (test code=APPU) Cloudy CLEAR UA GLUCOSE DIPSTICK (test code=DGLUU) NEGATIVE mg/dL NEGATIVE UA BILIRUBIN DIPSTICK (test code=BILU) NEGATIVE mg/dL NEGATIVE UA KETONE DIPSTICK (test code=KETU) 10 (1+) mg/dL NEGATIVE UA SPECIFIC GRAVITY (test code=SGU) 1.028 1.001-1.035 UA BLOOD DIPSTICK (test code=SRINATH) 0.03 mg/dL (Trace) mg/dL NEGATIVE UA PH DIPSTICK (test code=HORTENSIA) 5.5 5.0-8.0 UA PROTEIN DIPSTICK (test code=PROU) 30 (1+) mg/dL NEGATIVE UA UROBILINIOGEN DIPSTICK (test code=URO) Normal mg/dL NEGATIVE UA NITRITE DIPSTICK (test code=CLAUDINE) POSITIVE NEGATIVE UA LEUKOCYTE ESTERASE W REFLEX (test code=LEUUR) NEGATIVE Eugenio/uL NEGATIVE UA WBC (test code=WBCU) 0-5 per HPF 0-5 UA RBC (test code=RBCU) 0-2 #/HPF 0-5 UA EPITHELIAL CELLS (test code=EPIU) FEW per HPF FEW UA BACTERIA (test code=BACU) FEW #/HPF NONE UA MUCUS (test code=MUCU) FEW #/LPF FEW Urine Source? Clean CatchDRUGS OF ABUSE SCREEN [id number] 13:53:00* Test Item Value Reference Range Comments URN COCAINE (test code=COCAURN) NEGATIVE <300 ng/mL URN CANNABINOIDS (test code=CANNABURN) NEGATIVE <50 ng/mL URN AMPHETAMINE (test code=AMPHETURN) POSITIVE <1000 ng/mL This test provides only a preliminary test result. A morespecific alternate chemical method must be used in order toobtain a confirmed analytical result. Gas chromatography/mass spectrometry (GC/MS) is thepreferred confirmatory method. Other chemical confirmationmethods are available. Clinical consideration and professional judgment should be applied to any drug of abusetest result, particularly when preliminary positive resultsare used.Unconfirmed screening results must not be used fornon-medical purposes (e.g., employment testing, legaltesting). URN BARBITURATE (test code=BARBITURN) NEGATIVE <200 ng/mL URN BENZODIAZEPINE (test code=BENZOURN) POSITIVE <200 ng/mL This test provides only a preliminary test result. A morespecific alternate chemical method must be used in order toobtain a confirmed analytical result. Gas chromatography/mass spectrometry (GC/MS) is thepreferred confirmatory method. Other chemical confirmationmethods are available. Clinical consideration and professional judgment should be applied to any drug of abusetest result, particularly when preliminary positive resultsare used.Unconfirmed screening results must not be used fornon-medical purposes (e.g., employment testing, legaltesting). URN OPIATES (test code=OPIATURN) NEGATIVE <300 ng/mL URN PHENCYCLIDINE (PCP) (test code=PHENCURN) NEGATIVE <25 ng/mL URN METHADONE (test code=METHAURN) NEGATIVE <300 ng/mL Urine Source? Clean CatchHCG SERUM [id number] 13:37:00* Test Item Value Reference Range Comments HCG SERUM QUAL (test code=HCGQL) NEGATIVE NEGATIVE This HCGQL test is NOT applicable for MALE patients.Check with nurse about probable order error.If Tumor Marker Test needed, nurse should order test "HCGTU"(Test #550.13184) URINALYSIS [id number] 13:15:00* Test Item Value Reference Range Comments UA COLOR (test code=COLU) YELLOW YELLOW UA APPEARANCE (test code=APPU) Cloudy CLEAR UA GLUCOSE DIPSTICK (test code=DGLUU) NEGATIVE mg/dL NEGATIVE UA BILIRUBIN DIPSTICK (test code=BILU) NEGATIVE mg/dL NEGATIVE UA KETONE DIPSTICK (test code=KETU) 10 (1+) mg/dL NEGATIVE UA SPECIFIC GRAVITY (test code=SGU) 1.028 1.001-1.035 UA BLOOD DIPSTICK (test code=SRINATH) 0.03 mg/dL (Trace) mg/dL NEGATIVE UA PH DIPSTICK (test code=HORTENSIA) 5.5 5.0-8.0 UA PROTEIN DIPSTICK (test code=PROU) 30 (1+) mg/dL NEGATIVE UA UROBILINIOGEN DIPSTICK (test code=URO) Normal mg/dL NEGATIVE UA NITRITE DIPSTICK (test code=CLAUDINE) POSITIVE NEGATIVE UA LEUKOCYTE ESTERASE W REFLEX (test code=LEUUR) NEGATIVE Eugenio/uL NEGATIVE UA WBC (test code=WBCU) 0-5 per HPF 0-5 UA RBC (test code=RBCU) 0-2 #/HPF 0-5 UA EPITHELIAL CELLS (test code=EPIU) FEW per HPF FEW UA BACTERIA (test code=BACU) FEW #/HPF NONE UA MUCUS (test code=MUCU) FEW #/LPF FEW Urine Source? Clean CatchDRUGS OF ABUSE SCREEN [id number] 13:15:00* Test Item Value Reference Range Comments URN COCAINE (test code=COCAURN) <300 ng/mL URN CANNABINOIDS (test code=CANNABURN) <50 ng/mL URN AMPHETAMINE (test code=AMPHETURN) <1000 ng/mL URN BARBITURATE (test code=BARBITURN) <200 ng/mL URN BENZODIAZEPINE (test code=BENZOURN) <200 ng/mL URN OPIATES (test code=OPIATURN) <300 ng/mL URN PHENCYCLIDINE (PCP) (test code=PHENCURN) <25 ng/mL URN METHADONE (test code=METHAURN) <300 ng/mL Urine Source? Clean CatchURINALYSIS [id number] 13:11:00* Test Item Value Reference Range Comments UA COLOR (test code=COLU) YELLOW YELLOW UA APPEARANCE (test code=APPU) Cloudy CLEAR UA GLUCOSE DIPSTICK (test code=DGLUU) NEGATIVE mg/dL NEGATIVE UA BILIRUBIN DIPSTICK (test code=BILU) NEGATIVE mg/dL NEGATIVE UA KETONE DIPSTICK (test code=KETU) 10 (1+) mg/dL NEGATIVE UA SPECIFIC GRAVITY (test code=SGU) 1.028 1.001-1.035 UA BLOOD DIPSTICK (test code=SRINATH) 0.03 mg/dL (Trace) mg/dL NEGATIVE UA PH DIPSTICK (test code=HORTENSIA) 5.5 5.0-8.0 UA PROTEIN DIPSTICK (test code=PROU) 30 (1+) mg/dL NEGATIVE UA UROBILINIOGEN DIPSTICK (test code=URO) Normal mg/dL NEGATIVE UA NITRITE DIPSTICK (test code=CLAUDINE) POSITIVE NEGATIVE UA LEUKOCYTE ESTERASE W REFLEX (test code=LEUUR) NEGATIVE Eugenio/uL NEGATIVE UA WBC (test code=WBCU) per HPF 0-5 UA RBC (test code=RBCU) per HPF 0-5 UA EPITHELIAL CELLS (test code=EPIU) per HPF Few UA BACTERIA (test code=BACU) per HPF NONE Urine Source? Clean CatchDRUGS OF ABUSE SCREEN [id number] 13:11:00* Test Item Value Reference Range Comments URN COCAINE (test code=COCAURN) <300 ng/mL URN CANNABINOIDS (test code=CANNABURN) <50 ng/mL URN AMPHETAMINE (test code=AMPHETURN) <1000 ng/mL URN BARBITURATE (test code=BARBITURN) <200 ng/mL URN BENZODIAZEPINE (test code=BENZOURN) <200 ng/mL URN OPIATES (test code=OPIATURN) <300 ng/mL URN PHENCYCLIDINE (PCP) (test code=PHENCURN) <25 ng/mL URN METHADONE (test code=METHAURN) <300 ng/mL Urine Source? Clean CatchBASIC METABOLIC [id number] 11:59:00* Test Item Value Reference Range Comments SODIUM (test code=NA) 138 mmol/L 136-145 POTASSIUM (test code=K) 3.8 mmol/L 3.5-5.1 CHLORIDE (test code=CL) 101.0 mmol/L 98-107 CARBON DIOXIDE (test code=CO2) 23.0 mmol/L 21-32 ANION GAP (test code=GAP) 17.8 10-20 GLUCOSE (test code=GLU) 110 mg/dL 74-106 BLOOD UREA NITROGEN (test code=BUN) 37 mg/dL 7-18 GLOMERULAR FILTRATION RATE (test code=GFR) 54 mL/min >=60 Estimated GFR by using Modified MDRD formula.Chronic kidney disease is defined as either kidney damageor GFR <60 mL/min/1.73 m2 for >3 months. CREATININE (test code=CREAT) 1.10 mg/dL 0.55-1.02 Note change in reference range due to change in reagent. BUN/CREATININE RATIO (test code=BUN/CREA) 34.3 10-20 CALCIUM (test code=CA) 9.2 mg/dL 8.5-10.1 HEPATIC FUNCTION [id number] 11:59:00* Test Item Value Reference Range Comments TOTAL PROTEIN (test code=PROT) 8.3 gram/dL 6.4-8.2 ALBUMIN (test code=ALB) 4.2 g/dL 3.4-5.0 GLOBULIN (test code=GLOB) 4.1 gram/dL 2.7-4.2 ALBUMIN/GLOBULIN RATIO (test code=A/G) 1.0 0.75-1.50 BILIRUBIN TOTAL (test code=BILT) 1.60 mg/dL 0.0-1.0 BILIRUBIN DIRECT (test code=BILD) 0.40 mg/dL 0.0-0.20 SGOT/AST (test code=AST) 44 IUnit/L 15-37 SGPT/ALT (test code=ALT) 66 IUnit/L 12-78 ALKALINE PHOSPHATASE TOTAL (test code=ALKP) 70 IUnit/L 45-117 Note change in reference range due to change in reagent. [id number] 11:59:00* Test Item Value Reference Range Comments ALCOHOL (test code=ALC) 5 mg/dL 0.0-3.0 INTERPRETIVE DATA NOTE: POSITIVE SCREENING RESULTS SHOULD BE CONSIDERED PRESUMPTIVE.WHEN COLLECTED FOR MEDICAL PURPOSES ONLY. SPECIMEN WILL NOTBE COLLECTED BY CHAIN OF CUSTODY.IF A CONFIRMATION OF POSITIVE RESULTS IS DESIRED, ACONFIRMATION TEST MUST BE REQUESTED BY THE PHYSICIAN AT ANADDITIONAL CHARGE TO THE PATIENT. CBC W/O [id number] 11:35:00* Test Item Value Reference Range Comments WHITE BLOOD CELL (test code=WBC) K/mm3 4.5-12.5 RED BLOOD CELL (test code=RBC) mill/mm3 3.7-5.2 HEMOGLOBIN (test code=HGB) 13.1 gram/dL 11.5-15.5 HEMATOCRIT (test code=HCT) 38.1 % 36.0-46.0 MEAN CELL VOLUME (test code=MCV) fL 80-98 MEAN CELL HGB (test code=MCH) picogram 27.0-33.0 MEAN CELL HGB CONCETRATION (test code=MCHC) gram/dL 33.0-36.0 RED CELL DISTRIBUTION WIDTH (test code=RDW) % 11.6-16.2 PLATELET COUNT (test code=PLT) K/mm3 150-450 MEAN PLATELET VOLUME (test code=MPV) fL 6.7-11.0 CBC W/O [id number] 11:35:00* Test Item Value Reference Range Comments WHITE BLOOD CELL (test code=WBC) 13.1 K/mm3 4.5-12.5 RED BLOOD CELL (test code=RBC) 4.33 mill/mm3 3.7-5.2 HEMOGLOBIN (test code=HGB) 13.1 gram/dL 11.5-15.5 HEMATOCRIT (test code=HCT) 38.1 % 36.0-46.0 MEAN CELL VOLUME (test code=MCV) 88.0 fL 80-98 MEAN CELL HGB (test code=MCH) 30.3 picogram 27.0-33.0 MEAN CELL HGB CONCETRATION (test code=MCHC) 34.4 gram/dL 33.0-36.0 RED CELL DISTRIBUTION WIDTH (test code=RDW) 12.9 % 11.6-16.2 PLATELET COUNT (test code=PLT) 419 K/mm3 150-450 MEAN PLATELET VOLUME (test code=MPV) 9.6 fL 6.7-11.0 CBC W/AUTO [id number] 08:55:00* Test Item Value Reference Range Comments WHITE BLOOD CELL (test code=WBC) 7.0 K/mm3 4.5-12.5 RED BLOOD CELL (test code=RBC) 4.09 mill/mm3 3.7-5.2 HEMOGLOBIN (test code=HGB) 12.4 gram/dL 11.5-15.5 HEMATOCRIT (test code=HCT) 36.6 % 36.0-46.0 MEAN CELL VOLUME (test code=MCV) 89.5 fL 80-98 MEAN CELL HGB (test code=MCH) 30.3 picogram 27.0-33.0 MEAN CELL HGB CONCETRATION (test code=MCHC) 33.9 gram/dL 33.0-36.0 RED CELL DISTRIBUTION WIDTH (test code=RDW) 13.2 % 11.6-16.2 RED CELL DISTRIBUTION WIDTH SD (test code=RDW-SD) 43.2 fL 37.0-51.0 PLATELET COUNT (test code=PLT) 261 K/mm3 150-450 MEAN PLATELET VOLUME (test code=MPV) 10.3 fL 6.7-11.0 NEUTROPHIL % (test code=NT%) 51.5 % 39.0-69.0 IMMATURE GRANULOCYTE % (test code=IG%) 0.1 % 0.0-5.0 LYMPHOCYTE % (test code=LY%) 36.5 % 25.0-55.0 MONOCYTE % (test code=MO%) 9.2 % 0.0-10.0 EOSINOPHIL % (test code=EO%) 2.3 % 0.0-5.0 BASOPHIL % (test code=BA%) 0.4 % 0.0-1.0 NUCLEATED RBC % (test code=NRBC%) 0.0 % 0-0 NEUTROPHIL # (test code=NT#) 3.57 K/mm3 1.8-7.7 IMMATURE GRANULOCYTE # (test code=IG#) 0.01 x10 3/uL 0-0.03 LYMPHOCYTE # (test code=LY#) 2.54 K/mm3 1.0-5.0 MONOCYTE # (test code=MO#) 0.64 K/mm3 0-0.8 EOSINOPHIL # (test code=EO#) 0.16 K/mm3 0.0-0.5 BASOPHIL # (test code=BA#) 0.03 K/mm3 0.0-0.2 NUCLEATED RBC # (test code=NRBC#) 0.00 K/mm3 0.0-0.1 CBC W/AUTO [id number] 08:52:00* Test Item Value Reference Range Comments WHITE BLOOD CELL (test code=WBC) K/mm3 4.5-12.5 RED BLOOD CELL (test code=RBC) mill/mm3 3.7-5.2 HEMOGLOBIN (test code=HGB) 12.4 gram/dL 11.5-15.5 HEMATOCRIT (test code=HCT) 36.6 % 36.0-46.0 MEAN CELL VOLUME (test code=MCV) fL 80-98 MEAN CELL HGB (test code=MCH) picogram 27.0-33.0 MEAN CELL HGB CONCETRATION (test code=MCHC) gram/dL 33.0-36.0 RED CELL DISTRIBUTION WIDTH (test code=RDW) % 11.6-16.2 RED CELL DISTRIBUTION WIDTH SD (test code=RDW-SD) fL 37.0-51.0 PLATELET COUNT (test code=PLT) K/mm3 150-450 MEAN PLATELET VOLUME (test code=MPV) fL 6.7-11.0 NEUTROPHIL % (test code=NT%) % 39.0-69.0 IMMATURE GRANULOCYTE % (test code=IG%) % 0.0-5.0 LYMPHOCYTE % (test code=LY%) % 25.0-55.0 MONOCYTE % (test code=MO%) % 0.0-10.0 EOSINOPHIL % (test code=EO%) % 0.0-5.0 BASOPHIL % (test code=BA%) % 0.0-1.0 NEUTROPHIL # (test code=NT#) K/mm3 1.8-7.7 LYMPHOCYTE # (test code=LY#) K/mm3 1.0-5.0 MONOCYTE # (test code=MO#) K/mm3 0-0.8 EOSINOPHIL # (test code=EO#) K/mm3 0.0-0.5 BASOPHIL # (test code=BA#) K/mm3 0.0-0.2 BASIC METABOLIC [id number] 08:49:00* Test Item Value Reference Range Comments SODIUM (test code=NA) 144 mmol/L 136-145 POTASSIUM (test code=K) 3.6 mmol/L 3.5-5.1 CHLORIDE (test code=CL) 106.0 mmol/L 98-107 CARBON DIOXIDE (test code=CO2) 29.0 mmol/L 21-32 ANION GAP (test code=GAP) 12.6 10-20 GLUCOSE (test code=GLU) 105 mg/dL 74-106 BLOOD UREA NITROGEN (test code=BUN) 10 mg/dL 7-18 GLOMERULAR FILTRATION RATE (test code=GFR) > 60 mL/min >=60 Estimated GFR by using Modified MDRD formula.Chronic kidney disease is defined as either kidney damageor GFR <60 mL/min/1.73 m2 for >3 months. CREATININE (test code=CREAT) 0.60 mg/dL 0.55-1.02 Note change in reference range due to change in reagent. BUN/CREATININE RATIO (test code=BUN/CREA) 16.7 10-20 CALCIUM (test code=CA) 9.4 mg/dL 8.5-10.1 BASIC METABOLIC [id number] 08:40:00* Test Item Value Reference Range Comments SODIUM (test code=NA) 144 mmol/L 136-145 POTASSIUM (test code=K) 3.6 mmol/L 3.5-5.1 CHLORIDE (test code=CL) 106.0 mmol/L 98-107 CARBON DIOXIDE (test code=CO2) mmol/L 21-32 ANION GAP (test code=GAP) 10-20 GLUCOSE (test code=GLU) mg/dL 74-106 BLOOD UREA NITROGEN (test code=BUN) mg/dL 7-18 GLOMERULAR FILTRATION RATE (test code=GFR) mL/min >=60 CREATININE (test code=CREAT) mg/dL 0.55-1.02 BUN/CREATININE RATIO (test code=BUN/CREA) 10-20 CALCIUM (test code=CA) mg/dL 8.5-10.1 BASIC METABOLIC [id number] 07:18:00* Test Item Value Reference Range Comments SODIUM (test code=NA) 142 mmol/L 136-145 POTASSIUM (test code=K) 3.2 mmol/L 3.5-5.1 CHLORIDE (test code=CL) 108.0 mmol/L 98-107 CARBON DIOXIDE (test code=CO2) 27.0 mmol/L 21-32 ANION GAP (test code=GAP) 10.2 10-20 GLUCOSE (test code=GLU) 102 mg/dL 74-106 BLOOD UREA NITROGEN (test code=BUN) 11 mg/dL 7-18 RESULT VERIFIED BY REPEAT ANALYSIS GLOMERULAR FILTRATION RATE (test code=GFR) > 60 mL/min >=60 Estimated GFR by using Modified MDRD formula.Chronic kidney disease is defined as either kidney damageor GFR <60 mL/min/1.73 m2 for >3 months. CREATININE (test code=CREAT) 0.50 mg/dL 0.55-1.02 Note change in reference range due to change in reagent. BUN/CREATININE RATIO (test code=BUN/CREA) 22.0 10-20 CALCIUM (test code=CA) 8.2 mg/dL 8.5-10.1 CBC W/AUTO [id number] 06:44:00* Test Item Value Reference Range Comments WHITE BLOOD CELL (test code=WBC) 7.6 K/mm3 4.5-12.5 RED BLOOD CELL (test code=RBC) 3.56 mill/mm3 3.7-5.2 HEMOGLOBIN (test code=HGB) 11.0 gram/dL 11.5-15.5 HEMATOCRIT (test code=HCT) 32.1 % 36.0-46.0 MEAN CELL VOLUME (test code=MCV) 90.2 fL 80-98 MEAN CELL HGB (test code=MCH) 30.9 picogram 27.0-33.0 MEAN CELL HGB CONCETRATION (test code=MCHC) 34.3 gram/dL 33.0-36.0 RED CELL DISTRIBUTION WIDTH (test code=RDW) 13.4 % 11.6-16.2 RED CELL DISTRIBUTION WIDTH SD (test code=RDW-SD) 44.1 fL 37.0-51.0 PLATELET COUNT (test code=PLT) 231 K/mm3 150-450 MEAN PLATELET VOLUME (test code=MPV) 10.4 fL 6.7-11.0 NEUTROPHIL % (test code=NT%) 53.7 % 39.0-69.0 IMMATURE GRANULOCYTE % (test code=IG%) 0.3 % 0.0-5.0 LYMPHOCYTE % (test code=LY%) 35.4 % 25.0-55.0 MONOCYTE % (test code=MO%) 7.7 % 0.0-10.0 EOSINOPHIL % (test code=EO%) 2.5 % 0.0-5.0 BASOPHIL % (test code=BA%) 0.4 % 0.0-1.0 NUCLEATED RBC % (test code=NRBC%) 0.0 % 0-0 NEUTROPHIL # (test code=NT#) 4.06 K/mm3 1.8-7.7 IMMATURE GRANULOCYTE # (test code=IG#) 0.02 x10 3/uL 0-0.03 LYMPHOCYTE # (test code=LY#) 2.68 K/mm3 1.0-5.0 MONOCYTE # (test code=MO#) 0.58 K/mm3 0-0.8 EOSINOPHIL # (test code=EO#) 0.19 K/mm3 0.0-0.5 BASOPHIL # (test code=BA#) 0.03 K/mm3 0.0-0.2 NUCLEATED RBC # (test code=NRBC#) 0.00 K/mm3 0.0-0.1 MANUAL DIFF REQUIRED (test code=MDIFF) NO BASIC METABOLIC [id number] 07:36:00* Test Item Value Reference Range Comments SODIUM (test code=NA) 142 mmol/L 136-145 RESULT VERIFIED BY REPEAT ANALYSIS POTASSIUM (test code=K) 3.3 mmol/L 3.5-5.1 CHLORIDE (test code=CL) 112.0 mmol/L 98-107 CARBON DIOXIDE (test code=CO2) 24.0 mmol/L 21-32 ANION GAP (test code=GAP) 9.3 10-20 GLUCOSE (test code=GLU) 90 mg/dL 74-106 BLOOD UREA NITROGEN (test code=BUN) 21 mg/dL 7-18 GLOMERULAR FILTRATION RATE (test code=GFR) > 60 mL/min >=60 Estimated GFR by using Modified MDRD formula.Chronic kidney disease is defined as either kidney damageor GFR <60 mL/min/1.73 m2 for >3 months. CREATININE (test code=CREAT) 0.50 mg/dL 0.55-1.02 Note change in reference range due to change in reagent. BUN/CREATININE RATIO (test code=BUN/CREA) 40.5 10-20 CALCIUM (test code=CA) 8.0 mg/dL 8.5-10.1 CBC W/AUTO [id number] 07:14:00* Test Item Value Reference Range Comments WHITE BLOOD CELL (test code=WBC) 8.3 K/mm3 4.5-12.5 RED BLOOD CELL (test code=RBC) 3.34 mill/mm3 3.7-5.2 HEMOGLOBIN (test code=HGB) 10.2 gram/dL 11.5-15.5 HEMATOCRIT (test code=HCT) 30.4 % 36.0-46.0 MEAN CELL VOLUME (test code=MCV) 91.0 fL 80-98 MEAN CELL HGB (test code=MCH) 30.5 picogram 27.0-33.0 MEAN CELL HGB CONCETRATION (test code=MCHC) 33.6 gram/dL 33.0-36.0 RED CELL DISTRIBUTION WIDTH (test code=RDW) 13.7 % 11.6-16.2 RED CELL DISTRIBUTION WIDTH SD (test code=RDW-SD) 45.7 fL 37.0-51.0 PLATELET COUNT (test code=PLT) 216 K/mm3 150-450 MEAN PLATELET VOLUME (test code=MPV) 9.9 fL 6.7-11.0 NEUTROPHIL % (test code=NT%) 58.2 % 39.0-69.0 IMMATURE GRANULOCYTE % (test code=IG%) 0.4 % 0.0-5.0 LYMPHOCYTE % (test code=LY%) 32.3 % 25.0-55.0 MONOCYTE % (test code=MO%) 6.5 % 0.0-10.0 EOSINOPHIL % (test code=EO%) 2.4 % 0.0-5.0 BASOPHIL % (test code=BA%) 0.2 % 0.0-1.0 NUCLEATED RBC % (test code=NRBC%) 0.0 % 0-0 NEUTROPHIL # (test code=NT#) 4.85 K/mm3 1.8-7.7 IMMATURE GRANULOCYTE # (test code=IG#) 0.03 x10 3/uL 0-0.03 LYMPHOCYTE # (test code=LY#) 2.69 K/mm3 1.0-5.0 MONOCYTE # (test code=MO#) 0.54 K/mm3 0-0.8 EOSINOPHIL # (test code=EO#) 0.20 K/mm3 0.0-0.5 BASOPHIL # (test code=BA#) 0.02 K/mm3 0.0-0.2 NUCLEATED RBC # (test code=NRBC#) 0.00 K/mm3 0.0-0.1 MANUAL DIFF REQUIRED (test code=MDIFF) NO BASIC METABOLIC [id number] 12:52:00* Test Item Value Reference Range Comments SODIUM (test code=NA) 148 mmol/L 136-145 POTASSIUM (test code=K) 3.7 mmol/L 3.5-5.1 CHLORIDE (test code=CL) 120.0 mmol/L 98-107 CARBON DIOXIDE (test code=CO2) 20.0 mmol/L 21-32 ANION GAP (test code=GAP) 11.7 10-20 GLUCOSE (test code=GLU) 86 mg/dL 74-106 BLOOD UREA NITROGEN (test code=BUN) 28 mg/dL 7-18 GLOMERULAR FILTRATION RATE (test code=GFR) > 60 mL/min >=60 Estimated GFR by using Modified MDRD formula.Chronic kidney disease is defined as either kidney damageor GFR <60 mL/min/1.73 m2 for >3 months. CREATININE (test code=CREAT) 0.60 mg/dL 0.55-1.02 Note change in reference range due to change in reagent. BUN/CREATININE RATIO (test code=BUN/CREA) 47.2 10-20 CALCIUM (test code=CA) 7.8 mg/dL 8.5-10.1 [id number] 12:52:00* Test Item Value Reference Range Comments PHOSPHORUS (test code=PHOS) 2.6 mg/dL 2.5-4.9 CREATINE KINASE (CK)2018-10-04 12:52:00* Test Item Value Reference Range Comments CREATINE KINASE (CK) (test code=CK) 655 IUnit/L 26-208 [id number] 12:52:00* Test Item Value Reference Range Comments MAGNESIUM (test code=MAG) 1.9 mg/dL 1.8-2.4 BASIC METABOLIC [id number] 12:43:00* Test Item Value Reference Range Comments SODIUM (test code=NA) 148 mmol/L 136-145 POTASSIUM (test code=K) 3.7 mmol/L 3.5-5.1 CHLORIDE (test code=CL) 120.0 mmol/L 98-107 CARBON DIOXIDE (test code=CO2) mmol/L 21-32 ANION GAP (test code=GAP) 10-20 GLUCOSE (test code=GLU) mg/dL 74-106 BLOOD UREA NITROGEN (test code=BUN) mg/dL 7-18 GLOMERULAR FILTRATION RATE (test code=GFR) mL/min >=60 CREATININE (test code=CREAT) mg/dL 0.55-1.02 BUN/CREATININE RATIO (test code=BUN/CREA) 10-20 CALCIUM (test code=CA) mg/dL 8.5-10.1 [id number] 12:43:00* Test Item Value Reference Range Comments PHOSPHORUS (test code=PHOS) mg/dL 2.5-4.9 CREATINE KINASE (CK)2018-10-04 12:43:00* Test Item Value Reference Range Comments CREATINE KINASE (CK) (test code=CK) IUnit/L 26-208 [id number] 12:43:00* Test Item Value Reference Range Comments MAGNESIUM (test code=MAG) mg/dL 1.8-2.4 BASIC METABOLIC [id number] 06:01:00* Test Item Value Reference Range Comments SODIUM (test code=NA) 149 mmol/L 136-145 POTASSIUM (test code=K) 3.1 mmol/L 3.5-5.1 CHLORIDE (test code=CL) 119.0 mmol/L 98-107 CARBON DIOXIDE (test code=CO2) 18.0 mmol/L 21-32 ANION GAP (test code=GAP) 15.1 10-20 GLUCOSE (test code=GLU) 105 mg/dL 74-106 BLOOD UREA NITROGEN (test code=BUN) 30 mg/dL 7-18 GLOMERULAR FILTRATION RATE (test code=GFR) > 60 mL/min >=60 Estimated GFR by using Modified MDRD formula.Chronic kidney disease is defined as either kidney damageor GFR <60 mL/min/1.73 m2 for >3 months. CREATININE (test code=CREAT) 0.60 mg/dL 0.55-1.02 Note change in reference range due to change in reagent. BUN/CREATININE RATIO (test code=BUN/CREA) 46.4 10-20 CALCIUM (test code=CA) 7.8 mg/dL 8.5-10.1 [id number] 06:01:00* Test Item Value Reference Range Comments TROPONIN-I (test code=TROPI) <0.015 ng/mL 0-0.045 COMMENTS TO FUNDS TRANSFER CLERK: COLLECT 3 HOURS AFTER PREVIOUS [id number] 06:01:00* Test Item Value Reference Range Comments PHOSPHORUS (test code=PHOS) 3.4 mg/dL 2.5-4.9 [id number] 06:01:00* Test Item Value Reference Range Comments MAGNESIUM (test code=MAG) 1.9 mg/dL 1.8-2.4 CALCIUM [id number] 06:01:00* Test Item Value Reference Range Comments CALCIUM IONIZED (test code=JENNA) 1.16 mmol/L 1.12-1.32 CREATINE KINASE (CK)2018-10-04 06:01:00* Test Item Value Reference Range Comments CREATINE KINASE (CK) (test code=CK) 779 IUnit/L 26-208 [id number] 05:50:00* Test Item Value Reference Range Comments PHOSPHORUS (test code=PHOS) mg/dL 2.5-4.9 [id number] 05:50:00* Test Item Value Reference Range Comments MAGNESIUM (test code=MAG) mg/dL 1.8-2.4 CALCIUM [id number] 05:50:00* Test Item Value Reference Range Comments CALCIUM IONIZED (test code=JENNA) 1.16 mmol/L 1.12-1.32 [id number] 05:45:00* Test Item Value Reference Range Comments AMMONIA (test code=AMM) 43 umol/L 11-32 BASIC METABOLIC [id number] 05:44:00* Test Item Value Reference Range Comments SODIUM (test code=NA) 149 mmol/L 136-145 POTASSIUM (test code=K) 3.1 mmol/L 3.5-5.1 CHLORIDE (test code=CL) 119.0 mmol/L 98-107 CARBON DIOXIDE (test code=CO2) mmol/L 21-32 ANION GAP (test code=GAP) 10-20 GLUCOSE (test code=GLU) mg/dL 74-106 BLOOD UREA NITROGEN (test code=BUN) mg/dL 7-18 GLOMERULAR FILTRATION RATE (test code=GFR) mL/min >=60 CREATININE (test code=CREAT) mg/dL 0.55-1.02 BUN/CREATININE RATIO (test code=BUN/CREA) 10-20 CALCIUM (test code=CA) mg/dL 8.5-10.1 CBC W/O [id number] 05:30:00* Test Item Value Reference Range Comments WHITE BLOOD CELL (test code=WBC) 10.7 K/mm3 4.5-12.5 RED BLOOD CELL (test code=RBC) 3.44 mill/mm3 3.7-5.2 HEMOGLOBIN (test code=HGB) 10.6 gram/dL 11.5-15.5 HEMATOCRIT (test code=HCT) 31.6 % 36.0-46.0 MEAN CELL VOLUME (test code=MCV) 91.9 fL 80-98 MEAN CELL HGB (test code=MCH) 30.8 picogram 27.0-33.0 MEAN CELL HGB CONCETRATION (test code=MCHC) 33.5 gram/dL 33.0-36.0 RED CELL DISTRIBUTION WIDTH (test code=RDW) 13.3 % 11.6-16.2 PLATELET COUNT (test code=PLT) 228 K/mm3 150-450 MEAN PLATELET VOLUME (test code=MPV) 9.7 fL 6.7-11.0 [id number] 02:57:00* Test Item Value Reference Range Comments ACETAMINOPHEN (test code=ACET) 25.3 mcg/mL 10-30 A RANGE OF 10-30 mcg/mL IS A THERAPEUTIC RANGE. TOXIC CONCENTRATIONS: >150 mcg/mL AT 4 HOURS AFTER INGESTION >=50 mcg/mL AT 12 HOURS AFTER INGESTION [id number] 02:57:00* Test Item Value Reference Range Comments TROPONIN-I (test code=TROPI) <0.015 ng/mL 0-0.045 COMMENTS TO FUNDS TRANSFER CLERK: COLLECT 3 HOURS AFTER PREVIOUS SAMPLEPROCALCITONIN (PCT)2018-10-03 21:30:00* Test Item Value Reference Range Comments PROCALCITONIN (PCT) (test code=PROCAL) 0.07 ng/ml Concentration Interpretation (ng/mL) <0.51 Sepsis is not likely. Local bacterial infection is possible. (LOW RISK for progression to Sepsis) 0.51 - 2.00 Sepsis is possible, but other conditions are known to elevate PCT as well. (MODERATE RISK for progression to Sepsis) > 2.00 Sepsis is likely, unless other causes are known. (HIGH RISK for progression to Severe Sepsis or Septic Shock) 10.00 High likelihood of Severe Sepsis or Septic or higher Shock. *Increased PCT levels may not always be related to systemic bacterial infection.*Low PCT levels do not automatically exclude the presence of bacterial infection.*All results should be interpreted taking into account the patients history. - XR CHEST 1 [id number] 21:30:00 FAX: Padma Fernandez [phone] [place]: St: REG Name: CHRIS PERAZA [facility] : [birth year] Age/S: 43/F [address] [facility] Unit #: [id number] Loc: [place] [address] Phys: Padma Anderson MD Acct: [id number] Dis Date: Status: REG ER PHONE #: [phone] Exam Date: 10/03/20182107 FAX #: [phone] Reason: ETT removal EXAMS: CPT CODE: [id number] XR CHEST 1 V 24128 REASON FOR EXAM: ETT removal EXAM ORDER DATE: 10/03/2018 8:43 PM Ordering M.Misael.: Padma Anderson MD PROCEDURE: - XR CHEST 1 V CO MPARISON: 10/03/2018 at 6:15 PM FINDINGS: Portable AP frontal view of the chest obtained at 8:58 PM shows patchy airspace opacity of the base s more pronounced on the right. There is no evidence of effusion. The hear t size is within normal limits. Pulmonary vasculatures are minimally conge sted. IMPRESSION: OG tube tip is in the stomach. ET tube has b een pulled back with the tip now 2 cm above the angel Elect ronically Signed by Max Brady on 10/03/2018 at 0 R eported and signed by: Heber Brady M.D. CC: Padma Anderson MD Technologist: REESE SWAIN RT(R) Trnscrd Date/Time/By: 10/03/2018 (2129) : By: t.SDR.VTL Orig Print D/T: S: 10/03/2018 (8073) PAGE 1 Signed Report ARTERIAL BLOOD [id number] 21:15:00* Test Item Value Reference Range Comments ARTERIAL BLOOD GAS PH (test code=PHA) 7.37 7.35-7.45 ARTERIAL BLOOD GAS PCO2 (test code=PCO2A) 28.5 mm Hg 35-45 ARTERIAL BLOOD GAS PO2 (test code=PO2A) 408.0 mmHg 80-100 BICARBONATE TOTAL HCO3 (test code=HCO3) 16.0 mmol/L 23.0-27.0 BASE EXCESS (test code=WILLIAM) -8.1 mmol/L -3.0-5.0 Results called to and read back by PADMA Nicole 21: - 10/03/2018; by [id number] ABG O2 SATURATION (test code=SATA) 98.7 % 90.0-98.0 ABG TYPE (test code=TYPEA) Arterial FIO2 (test code=FIO2A) 100.0 ABG VENT MODE (test code=MODEA) Assist Control ABG VENT RESP RATE (test code=RRA) 16.0 per min ABG TIDAL VOLUME (test code=TVA) 450.0 mL ABG PEEP (test code=PEEPA) 5.0 cmH2O ABG SITE (test code=SITEA) Rt RADIAL ARTERY MODIFIED ALLENS (test code=MODALL) Yes CHECK PERFORMED SODIUM (test code=NA/ABG) 143.2 mEq/L 135-148 POTASSIUM (test code=K/ABG) 3.1 mEq/L 3.5-4.5 CHLORIDE (test code=CL/ABG) 112 mEq/L 98-106 GLUCOSE (test code=GLU/ABG) 123 mg/dL 74-99 HEMATOCRIT (test code=HCT/ABG) 33 % 35-47 IONIZED CALCIUM (test code=CAIABG) 1.14 mmol/L 1.1-1.37 TOTAL HGB (test code=THB) 11.3 gram/dL 11.5-15.5 HGB O2 SAT (test code=HBOSAT) 98.1 % 94.00-98.00 CARBOXYHEMOGLOBIN (test code=HOHGBT) 0.3 %totalHg 0.5-1.5 Results called to and read back by PADMA Nicole 21: - 10/03/2018; by [id number] METHEMOGLOBIN (test code=METHGB) 0.3 % 0.0-1.50 O2 CONTENT (test code=O2CT) 16.7 % vol 18.0-22.0 LACTIC [id number] 20:57:00* Test Item Value Reference Range Comments LACTIC ACID (test code=LACT) 0.8 mmol/L 0.4-1.9 [id number] 20:57:00* Test Item Value Reference Range Comments ACETAMINOPHEN (test code=ACET) 61.2 mcg/mL 10-30 A RANGE OF 10-30 mcg/mL IS A THERAPEUTIC RANGE. TOXIC CONCENTRATIONS: >150 mcg/mL AT 4 HOURS AFTER INGESTION >=50 mcg/mL AT 12 HOURS AFTER INGESTION BASIC METABOLIC [id number] 20:41:00* Test Item Value Reference Range Comments SODIUM (test code=NA) 147 mmol/L 136-145 POTASSIUM (test code=K) 3.2 mmol/L 3.5-5.1 CHLORIDE (test code=CL) 115.0 mmol/L 98-107 CARBON DIOXIDE (test code=CO2) 22.0 mmol/L 21-32 ANION GAP (test code=GAP) 13.2 10-20 GLUCOSE (test code=GLU) 133 mg/dL 74-106 BLOOD UREA NITROGEN (test code=BUN) 33 mg/dL 7-18 GLOMERULAR FILTRATION RATE (test code=GFR) 54 mL/min >=60 Estimated GFR by using Modified MDRD formula.Chronic kidney disease is defined as either kidney damageor GFR <60 mL/min/1.73 m2 for >3 months. CREATININE (test code=CREAT) 1.10 mg/dL 0.55-1.02 Note change in reference range due to change in reagent. BUN/CREATININE RATIO (test code=BUN/CREA) 29.7 10-20 CALCIUM (test code=CA) 8.3 mg/dL 8.5-10.1 PT COMBATIVE.NOTIFIED CAROL RICKETTSJB1 10/03/18 1849HEPATIC FUNCTION PANEL 2018-10-03 20:41:00* Test Item Value Reference Range Comments TOTAL PROTEIN (test code=PROT) 6.4 gram/dL 6.4-8.2 ALBUMIN (test code=ALB) 3.4 g/dL 3.4-5.0 GLOBULIN (test code=GLOB) 3.0 gram/dL 2.7-4.2 ALBUMIN/GLOBULIN RATIO (test code=A/G) 1.1 0.75-1.50 BILIRUBIN TOTAL (test code=BILT) 1.50 mg/dL 0.0-1.0 BILIRUBIN DIRECT (test code=BILD) 0.47 mg/dL 0.0-0.20 SGOT/AST (test code=AST) 26 IUnit/L 15-37 SGPT/ALT (test code=ALT) 17 IUnit/L 12-78 ALKALINE PHOSPHATASE TOTAL (test code=ALKP) 47 IUnit/L 45-117 Note change in reference range due to change in reagent. PT COMBATIVE.NOTIFIED CAROL MoralesLAB.JB 10/03/18 1849CREATINE KINASE (CK) 2018-10-03 20:41:00* Test Item Value Reference Range Comments CREATINE KINASE (CK) (test code=CK) 584 IUnit/L 26-208 PT COMBATIVE.NOTIFIED CAROL MoralesLAB.JB 10/03/18 [id number] 20:41:00 * Test Item Value Reference Range Comments LIPASE (test code=LIP) 63 U/L 73.0-393.0 PT COMBATIVE.NOTIFIED CAROL MoralesLAB.JB1 10/03/18 1849HCG SERUM [id number] 20:41:00* Test Item Value Reference Range Comments HCG SERUM QUAL (test code=HCGQL) NEGATIVE NEGATIVE This HCGQL test is NOT applicable for MALE patients.Check with nurse about probable order error.If Tumor Marker Test needed, nurse should order test "HCGTU"(Test #[id number]) PT COMBATIVE.NOTIFIED CAROL MoralesLAB.JB1 10/03/18 [id number] 20:41:00* Test Item Value Reference Range Comments TROPONIN-I (test code=TROPI) <0.015 ng/mL 0-0.045 PT COMBATIVE.NOTIFIED CAROL MoralesLAB.JB1 10/03/18 [id number] 20:41:00* Test Item Value Reference Range Comments ACETAMINOPHEN (test code=ACET) 72.2 mcg/mL 10-30 A RANGE OF 10-30 mcg/mL IS A THERAPEUTIC RANGE. TOXIC CONCENTRATIONS: >150 mcg/mL AT 4 HOURS AFTER INGESTION >=50 mcg/mL AT 12 HOURS AFTER INGESTION PT COMBATIVE.NOTIFIED CAROL MoralesLAB.JB1 10/03/18 [id number] 20:41:00* Test Item Value Reference Range Comments SALICYLATE (test code=TERESA) < 1.7 mg/dL 2.8-20.0 PT COMBATIVE.NOTIFIED CAROL MoralesLAB.JB1 10/03/18 [id number] 20:41:00 * Test Item Value Reference Range Comments ALCOHOL (test code=ALC) 5 mg/dL 0.0-3.0 INTERPRETIVE DATA NOTE: POSITIVE SCREENING RESULTS SHOULD BE CONSIDERED PRESUMPTIVE.WHEN COLLECTED FOR MEDICAL PURPOSES ONLY. SPECIMEN WILL NOTBE COLLECTED BY CHAIN OF CUSTODY.IF A CONFIRMATION OF POSITIVE RESULTS IS DESIRED, ACONFIRMATION TEST MUST BE REQUESTED BY THE PHYSICIAN AT ANADDITIONAL CHARGE TO THE PATIENT. PT COMBATIVE.NOTIFIED CAROL MoralesLAB.JB1 10/03/18 1849- CT HEAD/BRAIN W/O CONT 2018-10-03 20:39:00 Name: CHRIS LINN [facility] : 1975 Age/S: 43 / F [place] [facility] Unit #: [id number] Loc: [place], [place] [address] Phys: Padma Anderson MD Acct: [id number] Dis Date: Status: REG ER PHONE #: [phone] Exam Date: 10/03/20182024 FAX #: [phone] Reason: Altered Mental Status EXAMS: CPT CODE: [id number] CT HEAD/BRAIN W/O CONT 78038 REASON FOR EXAM: Altered Mental Status EXAM ORDER DATE: 10/03/2018 3:55 PM Ordering Max: Padma Anderson MD PROCEDURE: - CT HEAD/BRAIN W/O CONT COMPARISON: FINDINGS: CT images of the brain were obtained without IV contrast. Dose modulation, iterative reconstruction, and/or weight based adjustment of the MA/KV was utilized to reduce the radiation dose to as low as reasonably achievable. The brain parenchyma is within normal limits. The denise-white matter delineation is unremarkable. The ventricles, cisterns, and sulci are unremarkable. There is no evidence of hemorrhage, mass, mass effect. There is no evidence of acute or old infarct. The calvarium is intact. IMPRESSION: Unremarkable brain. at 2038 Reported and signed by: Heber Brady M.D. CC: Padma Anderson MD Technologist:Lukas White, RT(R)(CT) CTDI: DLP: Trnscb Date/Time: 10/03/2018 (2038) t.TANNERR.VTL Orig Print D/T: S: 10/03/2018 (2041) PAGE 1 Signed Report URINALYSIS [id number] 20:35:00* Test Item Value Reference Range Comments UA COLOR (test code=COLU) YELLOW YELLOW UA APPEARANCE (test code=APPU) Cloudy CLEAR UA GLUCOSE DIPSTICK (test code=DGLUU) NEGATIVE mg/dL NEGATIVE UA BILIRUBIN DIPSTICK (test code=BILU) NEGATIVE mg/dL NEGATIVE UA KETONE DIPSTICK (test code=KETU) 40 (2+) mg/dL NEGATIVE UA SPECIFIC GRAVITY (test code=SGU) 1.037 1.001-1.035 UA BLOOD DIPSTICK (test code=SRINATH) 0.03 mg/dL (Trace) mg/dL NEGATIVE UA PH DIPSTICK (test code=HORTENSIA) 5.5 5.0-8.0 UA PROTEIN DIPSTICK (test code=PROU) 50 (1+) mg/dL NEGATIVE UA UROBILINIOGEN DIPSTICK (test code=URO) 2.0 (1+) mg/dL NEGATIVE UA NITRITE DIPSTICK (test code=CLAUDINE) NEGATIVE NEGATIVE UA LEUKOCYTE ESTERASE W REFLEX (test code=LEUUR) 25 Eugenio/uL (Trace) Eugenio/uL NEGATIVE UA WBC (test code=WBCU) 6-10 per HPF 0-5 UA RBC (test code=RBCU) 0-2 #/HPF 0-5 UA EPITHELIAL CELLS (test code=EPIU) MOD per HPF FEW UA BACTERIA (test code=BACU) FEW #/HPF NONE UA HYALINE CAST (test code=HYALU) 11-20 #/LPF 0-5 UA MUCUS (test code=MUCU) MANY #/LPF FEW Urine Source? Clean CatchDRUGS OF ABUSE SCREEN [id number] 20:35:00* Test Item Value Reference Range Comments URN COCAINE (test code=COCAURN) NEGATIVE <300 ng/mL URN CANNABINOIDS (test code=CANNABURN) NEGATIVE <50 ng/mL URN AMPHETAMINE (test code=AMPHETURN) POSITIVE <1000 ng/mL This test provides only a preliminary test result. A morespecific alternate chemical method must be used in order toobtain a confirmed analytical result. Gas chromatography/mass spectrometry (GC/MS) is thepreferred confirmatory method. Other chemical confirmationmethods are available. Clinical consideration and professional judgment should be applied to any drug of abusetest result, particularly when preliminary positive resultsare used.Unconfirmed screening results must not be used fornon-medical purposes (e.g., employment testing, legaltesting). URN BARBITURATE (test code=BARBITURN) NEGATIVE <200 ng/mL URN BENZODIAZEPINE (test code=BENZOURN) POSITIVE <200 ng/mL This test provides only a preliminary test result. A morespecific alternate chemical method must be used in order toobtain a confirmed analytical result. Gas chromatography/mass spectrometry (GC/MS) is thepreferred confirmatory method. Other chemical confirmationmethods are available. Clinical consideration and professional judgment should be applied to any drug of abusetest result, particularly when preliminary positive resultsare used.Unconfirmed screening results must not be used fornon-medical purposes (e.g., employment testing, legaltesting). URN OPIATES (test code=OPIATURN) NEGATIVE <300 ng/mL URN PHENCYCLIDINE (PCP) (test code=PHENCURN) NEGATIVE <25 ng/mL URN METHADONE (test code=METHAURN) NEGATIVE <300 ng/mL Urine Source? Clean [id number] 20:11:00* Test Item Value Reference Range Comments AMMONIA (test code=AMM) 35 umol/L 11-32 BASIC METABOLIC [id number] 20:11:00* Test Item Value Reference Range Comments SODIUM (test code=NA) 147 mmol/L 136-145 POTASSIUM (test code=K) 3.2 mmol/L 3.5-5.1 CHLORIDE (test code=CL) 115.0 mmol/L 98-107 CARBON DIOXIDE (test code=CO2) 22.0 mmol/L 21-32 ANION GAP (test code=GAP) 13.2 10-20 GLUCOSE (test code=GLU) 133 mg/dL 74-106 BLOOD UREA NITROGEN (test code=BUN) 33 mg/dL 7-18 GLOMERULAR FILTRATION RATE (test code=GFR) 54 mL/min >=60 Estimated GFR by using Modified MDRD formula.Chronic kidney disease is defined as either kidney damageor GFR <60 mL/min/1.73 m2 for >3 months. CREATININE (test code=CREAT) 1.10 mg/dL 0.55-1.02 Note change in reference range due to change in reagent. BUN/CREATININE RATIO (test code=BUN/CREA) 29.7 10-20 CALCIUM (test code=CA) 8.3 mg/dL 8.5-10.1 PT COMBATIVE.NOTIFIED CAROL BRADY.JB1 10/03/18 1849HEPATIC FUNCTION PANEL 2018-10-03 20:11:00* Test Item Value Reference Range Comments TOTAL PROTEIN (test code=PROT) 6.4 gram/dL 6.4-8.2 ALBUMIN (test code=ALB) 3.4 g/dL 3.4-5.0 GLOBULIN (test code=GLOB) 3.0 gram/dL 2.7-4.2 ALBUMIN/GLOBULIN RATIO (test code=A/G) 1.1 0.75-1.50 BILIRUBIN TOTAL (test code=BILT) 1.50 mg/dL 0.0-1.0 BILIRUBIN DIRECT (test code=BILD) 0.47 mg/dL 0.0-0.20 SGOT/AST (test code=AST) 26 IUnit/L 15-37 SGPT/ALT (test code=ALT) 17 IUnit/L 12-78 ALKALINE PHOSPHATASE TOTAL (test code=ALKP) 47 IUnit/L 45-117 Note change in reference range due to change in reagent. PT COMBATIVE.NOTIFIED CAROL NORRIS V.LAB.[facility] 10/03/18 184CREATINE KINASE (CK) 2018-10-03 20:11:00* Test Item Value Reference Range Comments CREATINE KINASE (CK) (test code=CK) 584 IUnit/L 26-208 PT COMBATIVE.NOTIFIED CAROL NORRIS V.LAB.[facility] 10/03/[id number] 20:11:00 * Test Item Value Reference Range Comments LIPASE (test code=LIP) 63 U/L 73.0-393.0 PT COMBATIVE.NOTIFIED CAROL NORRIS V.LAB.[facility] 10/03/181848HCG SERUM [id number] 20:11:00* Test Item Value Reference Range Comments HCG SERUM QUAL (test code=HCGQL) NEGATIVE PT COMBATIVE.NOTIFIED CAROL NORRIS V.LAB.[facility] 10/03/[id number] 20:11:00* Test Item Value Reference Range Comments TROPONIN-I (test code=TROPI) <0.015 ng/mL 0-0.045 PT COMBATIVE.NOTIFIED CAROL NORRIS V.LAB.[facility] 10/03/[id number] 20:11:00* Test Item Value Reference Range Comments ACETAMINOPHEN (test code=ACET) 72.2 mcg/mL 10-30 A RANGE OF 10-30 mcg/mL IS A THERAPEUTIC RANGE. TOXIC CONCENTRATIONS: >150 mcg/mL AT 4 HOURS AFTER INGESTION >=50 mcg/mL AT 12 HOURS AFTER INGESTION PT COMBATIVE.NOTIFIED CAROL NORRIS V.LAB.[facility] 10/03/[id number] 20:11:00* Test Item Value Reference Range Comments SALICYLATE (test code=TERESA) < 1.7 mg/dL 2.8-20.0 PT COMBATIVE.NOTIFIED CAROL NORRIS V.LAB.JB 10/03/18 [id number] 20:11:00 * Test Item Value Reference Range Comments ALCOHOL (test code=ALC) 5 mg/dL 0.0-3.0 INTERPRETIVE DATA NOTE: POSITIVE SCREENING RESULTS SHOULD BE CONSIDERED PRESUMPTIVE.WHEN COLLECTED FOR MEDICAL PURPOSES ONLY. SPECIMEN WILL NOTBE COLLECTED BY CHAIN OF CUSTODY.IF A CONFIRMATION OF POSITIVE RESULTS IS DESIRED, ACONFIRMATION TEST MUST BE REQUESTED BY THE PHYSICIAN AT ANADDITIONAL CHARGE TO THE PATIENT. PT COMBATIVE.NOTIFIED CAROL MoralesLAB.JB1 10/03/18 1849BASIC METABOLIC PANEL 2018-10-03 20:05:00* Test Item Value Reference Range Comments SODIUM (test code=NA) 147 mmol/L 136-145 POTASSIUM (test code=K) 3.2 mmol/L 3.5-5.1 CHLORIDE (test code=CL) 115.0 mmol/L 98-107 CARBON DIOXIDE (test code=CO2) mmol/L 21-32 ANION GAP (test code=GAP) 10-20 GLUCOSE (test code=GLU) mg/dL 74-106 BLOOD UREA NITROGEN (test code=BUN) mg/dL 7-18 GLOMERULAR FILTRATION RATE (test code=GFR) mL/min >=60 CREATININE (test code=CREAT) mg/dL 0.55-1.02 BUN/CREATININE RATIO (test code=BUN/CREA) 10-20 CALCIUM (test code=CA) mg/dL 8.5-10.1 PT COMBATIVE.NOTIFIED CAROL MoralesLAB.JB1 10/03/18 1849HEPATIC FUNCTION PANEL 2018-10-03 20:05:00* Test Item Value Reference Range Comments TOTAL PROTEIN (test code=PROT) gram/dL 6.4-8.2 ALBUMIN (test code=ALB) g/dL 3.4-5.0 GLOBULIN (test code=GLOB) gram/dL 2.7-4.2 ALBUMIN/GLOBULIN RATIO (test code=A/G) 0.75-1.50 BILIRUBIN TOTAL (test code=BILT) mg/dL 0.0-1.0 BILIRUBIN DIRECT (test code=BILD) mg/dL 0.0-0.20 SGOT/AST (test code=AST) IUnit/L 15-37 SGPT/ALT (test code=ALT) IUnit/L 12-78 ALKALINE PHOSPHATASE TOTAL (test code=ALKP) IUnit/L 45-117 PT COMBATIVE.NOTIFIED CAROL NORRIS V.LAB.[facility] 10/03/18 1849CREATINE KINASE (CK) 2018-10-03 20:05:00* Test Item Value Reference Range Comments CREATINE KINASE (CK) (test code=CK) IUnit/L 26-208 PT COMBATIVE.NOTIFIED CAROL NORRIS V.LAB.[facility] 10/03/18 [id number] 20:05:00 * Test Item Value Reference Range Comments LIPASE (test code=LIP) U/L 73.0-393.0 PT COMBATIVE.NOTIFIED CAROL NORRIS V.LAB.[facility] 10/03/181848HCG SERUM [id number] 20:05:00* Test Item Value Reference Range Comments HCG SERUM QUAL (test code=HCGQL) NEGATIVE PT COMBATIVE.NOTIFIED CAROL NORRIS V.LAB.[facility] 10/03/18 [id number] 20:05:00* Test Item Value Reference Range Comments TROPONIN-I (test code=TROPI) ng/mL 0-0.045 PT COMBATIVE.NOTIFIED CAROL NORRIS V.LAB.[facility] 10/03/18 [id number] 20:05:00* Test Item Value Reference Range Comments ACETAMINOPHEN (test code=ACET) mcg/mL 10-30 PT COMBATIVE.NOTIFIED CAROL NORRIS V.LAB.[facility] 10/03/18 [id number] 20:05:00* Test Item Value Reference Range Comments SALICYLATE (test code=TERESA) mg/dL 2.8-20.0 PT COMBATIVE.NOTIFIED CAROL NORRIS V.LAB.[facility] 10/03/18 [id number] 20:05:00 * Test Item Value Reference Range Comments ALCOHOL (test code=ALC) mg/dL 0-3 PT COMBATIVE.NOTIFIED CAROL NORRIS V.LAB.[facility] 10/03/18 1849URINALYSIS COMPLETE 2018-10-03 19:58:00* Test Item Value Reference Range Comments UA COLOR (test code=COLU) YELLOW YELLOW UA APPEARANCE (test code=APPU) Cloudy CLEAR UA GLUCOSE DIPSTICK (test code=DGLUU) NEGATIVE mg/dL NEGATIVE UA BILIRUBIN DIPSTICK (test code=BILU) NEGATIVE mg/dL NEGATIVE UA KETONE DIPSTICK (test code=KETU) 40 (2+) mg/dL NEGATIVE UA SPECIFIC GRAVITY (test code=SGU) 1.037 1.001-1.035 UA BLOOD DIPSTICK (test code=SRINATH) 0.03 mg/dL (Trace) mg/dL NEGATIVE UA PH DIPSTICK (test code=HORTENSIA) 5.5 5.0-8.0 UA PROTEIN DIPSTICK (test code=PROU) 50 (1+) mg/dL NEGATIVE UA UROBILINIOGEN DIPSTICK (test code=URO) 2.0 (1+) mg/dL NEGATIVE UA NITRITE DIPSTICK (test code=CLAUDINE) NEGATIVE NEGATIVE UA LEUKOCYTE ESTERASE W REFLEX (test code=LEUUR) 25 Eugenio/uL (Trace) Eugenio/uL NEGATIVE UA WBC (test code=WBCU) 6-10 per HPF 0-5 UA RBC (test code=RBCU) 0-2 #/HPF 0-5 UA EPITHELIAL CELLS (test code=EPIU) MOD per HPF FEW UA BACTERIA (test code=BACU) FEW #/HPF NONE UA HYALINE CAST (test code=HYALU) 11-20 #/LPF 0-5 UA MUCUS (test code=MUCU) MANY #/LPF FEW Urine Source? Clean CatchDRUGS OF ABUSE SCREEN [id number] 19:58:00* Test Item Value Reference Range Comments URN COCAINE (test code=COCAURN) <300 ng/mL URN CANNABINOIDS (test code=CANNABURN) <50 ng/mL URN AMPHETAMINE (test code=AMPHETURN) <1000 ng/mL URN BARBITURATE (test code=BARBITURN) <200 ng/mL URN BENZODIAZEPINE (test code=BENZOURN) <200 ng/mL URN OPIATES (test code=OPIATURN) <300 ng/mL URN PHENCYCLIDINE (PCP) (test code=PHENCURN) <25 ng/mL URN METHADONE (test code=METHAURN) <300 ng/mL Urine Source? Clean CatchCBC W/AUTO [id number] 19:39:00* Test Item Value Reference Range Comments WHITE BLOOD CELL (test code=WBC) 12.7 K/mm3 4.5-12.5 RED BLOOD CELL (test code=RBC) 3.66 mill/mm3 3.7-5.2 HEMOGLOBIN (test code=HGB) 11.1 gram/dL 11.5-15.5 HEMATOCRIT (test code=HCT) 32.5 % 36.0-46.0 MEAN CELL VOLUME (test code=MCV) 88.8 fL 80-98 MEAN CELL HGB (test code=MCH) 30.3 picogram 27.0-33.0 MEAN CELL HGB CONCETRATION (test code=MCHC) 34.2 gram/dL 33.0-36.0 RED CELL DISTRIBUTION WIDTH (test code=RDW) 12.8 % 11.6-16.2 RED CELL DISTRIBUTION WIDTH SD (test code=RDW-SD) 41.6 fL 37.0-51.0 PLATELET COUNT (test code=PLT) 246 K/mm3 150-450 MEAN PLATELET VOLUME (test code=MPV) 9.5 fL 6.7-11.0 NEUTROPHIL % (test code=NT%) 86.6 % 39.0-69.0 IMMATURE GRANULOCYTE % (test code=IG%) 0.6 % 0.0-5.0 LYMPHOCYTE % (test code=LY%) 8.6 % 25.0-55.0 MONOCYTE % (test code=MO%) 3.8 % 0.0-10.0 EOSINOPHIL % (test code=EO%) 0.1 % 0.0-5.0 BASOPHIL % (test code=BA%) 0.3 % 0.0-1.0 NUCLEATED RBC % (test code=NRBC%) 0.0 % 0-0 NEUTROPHIL # (test code=NT#) 10.98 K/mm3 1.8-7.7 IMMATURE GRANULOCYTE # (test code=IG#) 0.08 x10 3/uL 0-0.03 LYMPHOCYTE # (test code=LY#) 1.09 K/mm3 1.0-5.0 MONOCYTE # (test code=MO#) 0.48 K/mm3 0-0.8 EOSINOPHIL # (test code=EO#) 0.01 K/mm3 0.0-0.5 BASOPHIL # (test code=BA#) 0.04 K/mm3 0.0-0.2 NUCLEATED RBC # (test code=NRBC#) 0.00 K/mm3 0.0-0.1 [id number] 19:15:00* Test Item Value Reference Range Comments GLUAMY (test code=GLUBED) 118 mg/dL 74-106 Performed by certified packing line operator at [facility] - XR CHEST 1 [id number] 18:42:00 FAX: Padma Fernandez [phone] [place]: St: REG Name: CHRIS PERAZA [facility] : [birth year] 76 Age/S: 43/F [address] [facility] Unit #: [id number] Loc: ANDRY [facility] [place] [address] Phys: Padma Anderson MD Acct: [id number] Dis Date: Status: REG ER PHONE #: [phone] Exam Date: 10/03/2018 1815 FAX #: [phone] Reason: post intubation EXAMS: CPT CODE: [id number] XR CHEST 1 V [id number] REASON FOR EXAM: post intu bation EXAM ORDER DATE: 10/03/2018 5:40 PM Ordering M. DKera: Padma Anderson MD PROCEDURE: - XR CHEST 1 V COMPARISON: 10/13/2018 at 4:19 PM FINDINGS: Portable AP frontal view of the chest obtained at 6:15 PM shows patchy airspace opacity at the right base. There is no evidence of effusion. The heart size is within no rmal limits. Pulmonary vasculatures are minimally congested. IMPRESSION: ET tube is in the right mainstem bronchus. Recommend pu lling back the ET tube approximately 2 cm at 0242 Reported and signed by : Heber Brady M.D. CC: Padma Anderson MD Technologist: REESE SWAIN RT(R) Trninrenard Date/Time/By: 10/03/2018 (4948) : By: EdwarVTL Orig Print D/T: S: 10/03/2018 (1418) PAGE 1 Signed Report - XR CHEST 1 [id number] 16:23:00 FAX: Padma Fernandez [phone] [place]: St: REG Name: CHRIS PERAZA [facility] : [birth year] Age/S: 43/F [address] [facility] Unit #: [id number] Loc: [place] [address] Phys: Padma Anderson MD Acct: [id number] Dis Date: Status: REG ER PHONE #: [phone] Exam Date: 10/03/2018 1622 FAX #: [phone] Reason: Altered Mental Status EXAMS: CPT CODE: [id number] XR CHEST 1 V 46784 REASON FOR EXAM: Altered M ental Status EXAM ORDER DATE: 10/03/2018 3:55 PM Order ing Max: Padma Anderson MD PROCEDURE: - XR CHEST 1 V COMPARISON: 06/25/2018 FINDINGS: Portable AP frontal view of the chest obtained at 4:19 PM shows patchy airspace opacity of the bases. There is no evidence of effusion. The heart size is within normal limits. Pulmonary vasculatures are unremarkable. IMPRESSION: Pa tchy atelectasis of the bases at 7973 Reported and signed by: Debbie Miranda CC: Padma Anderson MD Technologist: Park King RT(R); REESE SWAIN RT(R) Trnscrd Date/Time/By: 10/03/2018 (7631) : By: EdwarVTL Orig Print D/T: S: 10/03/2018 (7695) PAGE 1 Signed R eport [id number] 16:07:00* Test Item Value Reference Range Comments GLUBED (test code=GLUBED) 120 mg/dL 74-106 Performed by certified packing line operator at [facility] - XR CHEST 2 [id number] 21:44:00 FAX: Ambar Crews MD [phone] [place]: St: REG Name: CHRIS PERAZA [facility] : [birth year] 76 Age/S: 42/F [address] [place] [address] Bl Unit #: [id number] Loc: [place] [address] Phys: Ambar Feliz MD Acct: [id number] Dis Date: Status: REG ER PHONE #: [phone] Exam Date: 06/25/20182135 FAX #: [phone] Reason: acute SOB EXAMS: CPT CODE: [id number] XR CHEST 2 V [id number] Clinical Indication: acute SOB Comparison: May 11, 2018 FINDINGS: The frontal and lateral chest radiographs show normal lung volumes. No interstitial or airspace opacities are seen. No pleural effusions are present. No pneu mothorax is seen. The heart is normal in size. The trachea is midl ine. There are no clinically significant osseous abnormalities no sathya. IMPRESSION: No chest radiographic evidence of acut e cardiopulmonary disease. SL: [id number] Elect ronically Signed by Max Juarez on 06/25/2018 at 4365 Reported and signed by: Gerardo Juarez M.D. CC: Ambar Feliz MD Technologist: Reyna Tejada, RT(R) Trnscrd Date/Time/By: 06/25/2018 (4265) : By: EdwarLNV Orig Print D/T: S: 06/25/2018 (3683) PAGE 1 Signed Report HEPATIC FUNCTION [id number] 20:19:00* Test Item Value Reference Range Comments TOTAL PROTEIN (test code=PROT) 6.1 g/dL 6.4-8.2 ALBUMIN (test code=ALB) 3.10 g/dL 3.4-5.0 BILIRUBIN TOTAL (test code=BILT) 0.40 mg/dL 0.0-1.0 BILIRUBIN DIRECT (test code=BILD) 0.10 MG/DL 0.0-0.30 BILIRUBIN INDIRECT (test code=BILIND) 0.30 MG/DL SGOT/AST (test code=AST) 11 IUnit/L 15-37 SGPT/ALT (test code=ALT) 18 IUnit/L 15-65 ALKALINE PHOSPHATASE TOTAL (test code=ALKP) 47 IUnit/L 20-125 [id number] 20:19:00* Test Item Value Reference Range Comments ACETAMINOPHEN (test code=ACET) < 2 ug/mL 10-30 [id number] 20:19:00* Test Item Value Reference Range Comments SALICYLATE (test code=TERESA) < 1.7 mg/dL 2.8-20.0 [id number] 20:19:00* Test Item Value Reference Range Comments ALCOHOL (test code=ALC) < 0.003 G/dL <0.003 Ethyl Alcohol Interpretation: 0.100 gm/dL - Legally Intoxicated 0.300-0.400 gm/dL - Severely Intoxicated >0.400 gm/dL - Potentially LethalResults are for Medical purposes only, and not for Legal orEmployment evaluation purposes. CBC W/AUTO [id number] 20:02:00* Test Item Value Reference Range Comments WHITE BLOOD CELL (test code=WBC) 9.32 x10 3/uL 4.5-11.0 RED BLOOD CELL (test code=RBC) 3.67 x10 6/uL 3.54-5.02 HEMOGLOBIN (test code=HGB) 11.1 g/dL 11.0-15.0 HEMATOCRIT (test code=HCT) 33.0 % 33.0-45.0 MEAN CELL VOLUME (test code=MCV) 89.9 fL 81.0-99.0 MEAN CELL HGB (test code=MCH) 30.2 pg 27.0-33.0 MEAN CELL HGB CONCETRATION (test code=MCHC) 33.6 g/dL 33.0-37.0 RED CELL DISTRIBUTION WIDTH CV (test code=RDW) 13.0 % 11.5-14.5 RED CELL DISTRIBUTION WIDTH SD (test code=RDW-SD) 42.8 fL 37.0-54.0 PLATELET COUNT (test code=PLT) 314 x10 3/uL 150-400 MEAN PLATELET VOLUME (test code=MPV) 9.1 fL 7.0-9.0 NEUTROPHIL % (test code=NT%) 66.1 % 56.0-77.0 IMMATURE GRANULOCYTE % (test code=IG%) 0.2 % 0.0-2.0 LYMPHOCYTE % (test code=LY%) 23.9 % 14.0-32.0 MONOCYTE % (test code=MO%) 8.9 % 4.8-9.0 EOSINOPHIL % (test code=EO%) 0.6 % 0.3-3.7 BASOPHIL % (test code=BA%) 0.3 % 0.0-2.0 NUCLEATED RBC % (test code=NRBC%) 0.0 % 0-0 NEUTROPHIL # (test code=NT#) 6.15 x10 3/uL 2.0-7.6 IMMATURE GRANULOCYTE # (test code=IG#) 0.02 x10 3/uL 0.00-0.03 LYMPHOCYTE # (test code=LY#) 2.23 x10 3/uL 1.0-3.8 MONOCYTE # (test code=MO#) 0.83 x10 3/uL 0.1-0.8 EOSINOPHIL # (test code=EO#) 0.06 x10 3/uL 0.0-0.2 BASOPHIL # (test code=BA#) 0.03 x10 3/uL 0.0-0.2 NUCLEATED RBC # (test code=NRBC#) 0.00 x10 3/uL 0.0-0.1 MANUAL DIFF REQUIRED (test code=MDIFF) NO CHEMISTRY 8 [id number] 19:55:00* Test Item Value Reference Range Comments ISTAT-SODIUM (test code=NAP) MMOL/L 134-147 ISTAT-POTASSIUM (test code=KP) MMOL/L 3.4-5.0 ISTAT-CHLORIDE (test code=CLP) MMOL/L 100-108 ISTAT CARBON DIOXIDE (test code=ISTAT-CO2) mmol/L 21-33 ISTAT CALCIUM IONIZED (test code=ISTAT-JENNA) MG/DL 1.12-1.32 ISTAT-GLUCOSE (test code=GLUP) MG/DL 70-110 ISTAT-BUN (test code=BUNP) MG/DL 7-18 BEDSIDE CREATININE (test code=CREATBED) MG/DL 0.6-1.3 GLOMERULAR FILTRATION RATE POC (test code=GFRBED) 98 ML/MIN CHEMISTRY 8 [id number] 19:55:00* Test Item Value Reference Range Comments ISTAT-SODIUM (test code=NAP) 140 MMOL/L 134-147 ISTAT-POTASSIUM (test code=KP) 3.7 MMOL/L 3.4-5.0 ISTAT-CHLORIDE (test code=CLP) 102 MMOL/L 100-108 Performed by certified packing line operator at [facility] ISTAT CARBON DIOXIDE (test code=ISTAT-CO2) 25.0 mmol/L 21-33 ISTAT CALCIUM IONIZED (test code=ISTAT-JENNA) 1.19 MG/DL 1.12-1.32 ISTAT-GLUCOSE (test code=GLUP) 101 MG/DL 70-110 ISTAT-BUN (test code=BUNP) 22 MG/DL 7-18 BEDSIDE CREATININE (test code=CREATBED) 0.7 MG/DL 0.6-1.3 GLOMERULAR FILTRATION RATE POC (test code=GFRBED) 98 ML/MIN URINALYSIS [id number] 19:37:00* Test Item Value Reference Range Comments UA COLOR (test code=COLU) YELLOW YEL/STRAW UA APPEARANCE (test code=APPU) SL CLOUDY CLEAR UA GLUCOSE DIPSTICK (test code=DGLUU) NEGATIVE NEGATIVE UA BILIRUBIN DIPSTICK (test code=BILU) NEGATIVE NEGATIVE UA KETONE DIPSTICK (test code=KETU) NEGATIVE NEGATIVE UA SPECIFIC GRAVITY (test code=SGU) 1.027 1.005-1.030 UA BLOOD DIPSTICK (test code=SRINATH) 1+ NEGATIVE UA PH DIPSTICK (test code=HORTENSIA) 5.0 5.0-7.0 UA PROTEIN DIPSTICK (test code=PROU) NEGATIVE NEGATIVE UA UROBILINIOGEN DIPSTICK (test code=URO) 2.0 mg/dL 0.2-1.0 UA NITRITE DIPSTICK (test code=CLAUDINE) NEGATIVE NEGATIVE UA LEUKOCYTE ESTERASE DIPSTICK (test code=LEUU) NEGATIVE NEGATIVE UA WBC (test code=WBCU) 0-3 WBC/HPF 0-3 UA RBC (test code=RBCU) 0-3 RBC/HPF 0-3 UA BACTERIA (test code=BACU) TRACE /HPF NONE SEEN UA SQUAMOUS CELLS (test code=SQU) 6-10 /HPF NONE SEEN UA MUCUS (test code=MUCU) TRACE /LPF NONE SEEN COMMENTS: Clean CatchDRUGS OF ABUSE SCREEN [id number] 19:29:00* Test Item Value Reference Range Comments URN COCAINE (test code=COCAURN) NEGATIVE NEGATIVE URN CANNABINOIDS (test code=CANNABURN) POSITIVE NEGATIVE URN AMPHETAMINE (test code=AMPHETURN) POSITIVE NEGATIVE URN BARBITURATE (test code=BARBITURN) NEGATIVE NEGATIVE URN BENZODIAZEPINE (test code=BENZOURN) NEGATIVE NEGATIVE Cut-off value:200 ng/mL URN OPIATES (test code=OPIATURN) NEGATIVE NEGATIVE Cut-off value:2000 ng/mL URN PHENCYCLIDINE (PCP) (test code=PHENCURN) NEGATIVE NEGATIVE Cutoffs:Barbiturates 200 ng/mLBenzodiazepines 200 ng/mLTHC Cannabinoids 50 ng/mLOpiates(Morphine) 2000 ng/mLAmphetamine 1000 ng/mLCocaine 300 ng/mLPCP phencyclidine 25 ng/mL Unconfirmed screening results shouldnot be used for non-medical purposes. DRUGS OF ABUSE SCREEN [id number] 19:19:00* Test Item Value Reference Range Comments URN COCAINE (test code=COCAURN) NEGATIVE NEGATIVE URN CANNABINOIDS (test code=CANNABURN) NEGATIVE URN AMPHETAMINE (test code=AMPHETURN) NEGATIVE URN BARBITURATE (test code=BARBITURN) NEGATIVE NEGATIVE URN BENZODIAZEPINE (test code=BENZOURN) NEGATIVE NEGATIVE Cut-off value:200 ng/mL URN OPIATES (test code=OPIATURN) NEGATIVE NEGATIVE Cut-off value:2000 ng/mL URN PHENCYCLIDINE (PCP) (test code=PHENCURN) NEGATIVE NEGATIVE Cutoffs:Barbiturates 200 ng/mLBenzodiazepines 200 ng/mLTHC Cannabinoids 50 ng/mLOpiates(Morphine) 2000 ng/mLAmphetamine 1000 ng/mLCocaine 300 ng/mLPCP phencyclidine 25 ng/mL Unconfirmed screening results shouldnot be used for non-medical purposes. CREATINE KINASE (CK)2018-06-12 14:28:00* Test Item Value Reference Range Comments CREATINE KINASE (CK) (test code=CK) 351 IUnit/L 26-208 CBC W/AUTO [id number] 00:57:00* Test Item Value Reference Range Comments WHITE BLOOD CELL (test code=WBC) 8.1 K/mm3 4.5-12.5 RED BLOOD CELL (test code=RBC) 3.72 mill/mm3 3.7-5.2 HEMOGLOBIN (test code=HGB) 11.3 gram/dL 11.5-15.5 HEMATOCRIT (test code=HCT) 33.8 % 36.0-46.0 MEAN CELL VOLUME (test code=MCV) 90.9 fL 80-98 MEAN CELL HGB (test code=MCH) 30.4 picogram 27.0-33.0 MEAN CELL HGB CONCETRATION (test code=MCHC) 33.4 gram/dL 33.0-36.0 RED CELL DISTRIBUTION WIDTH (test code=RDW) 13.4 % 11.6-16.2 RED CELL DISTRIBUTION WIDTH SD (test code=RDW-SD) 44.4 fL 37.0-51.0 PLATELET COUNT (test code=PLT) 290 K/mm3 150-450 MEAN PLATELET VOLUME (test code=MPV) 9.8 fL 6.7-11.0 NEUTROPHIL % (test code=NT%) 82.1 % 39.0-69.0 IMMATURE GRANULOCYTE % (test code=IG%) 0.4 % 0.0-5.0 LYMPHOCYTE % (test code=LY%) 10.6 % 25.0-55.0 MONOCYTE % (test code=MO%) 6.1 % 0.0-10.0 EOSINOPHIL % (test code=EO%) 0.7 % 0.0-5.0 BASOPHIL % (test code=BA%) 0.1 % 0.0-1.0 NUCLEATED RBC % (test code=NRBC%) 0.0 % 0-0 NEUTROPHIL # (test code=NT#) 6.61 K/mm3 1.8-7.7 IMMATURE GRANULOCYTE # (test code=IG#) 0.03 x10 3/uL 0-0.03 LYMPHOCYTE # (test code=LY#) 0.85 K/mm3 1.0-5.0 MONOCYTE # (test code=MO#) 0.49 K/mm3 0-0.8 EOSINOPHIL # (test code=EO#) 0.06 K/mm3 0.0-0.5 BASOPHIL # (test code=BA#) 0.01 K/mm3 0.0-0.2 NUCLEATED RBC # (test code=NRBC#) 0.00 K/mm3 0.0-0.1 MANUAL DIFF REQUIRED (test code=MDIFF) NO BASIC METABOLIC [id number] 00:34:00* Test Item Value Reference Range Comments SODIUM (test code=NA) 140 mmol/L 136-145 POTASSIUM (test code=K) 3.1 mmol/L 3.5-5.1 CHLORIDE (test code=CL) 109.0 mmol/L 98-107 CARBON DIOXIDE (test code=CO2) 22.0 mmol/L 21-32 ANION GAP (test code=GAP) 12.1 10-20 GLUCOSE (test code=GLU) 98 mg/dL 74-106 BLOOD UREA NITROGEN (test code=BUN) 20 mg/dL 7-18 GLOMERULAR FILTRATION RATE (test code=GFR) > 60 mL/min >=60 Estimated GFR by using Modified MDRD formula.Chronic kidney disease is defined as either kidney damageor GFR <60 mL/min/1.73 m2 for >3 months. CREATININE (test code=CREAT) 0.50 mg/dL 0.55-1.02 Note change in reference range due to change in reagent. BUN/CREATININE RATIO (test code=BUN/CREA) 40.0 10-20 CALCIUM (test code=CA) 8.0 mg/dL 8.5-10.1 BASIC METABOLIC [id number] 00:31:00* Test Item Value Reference Range Comments SODIUM (test code=NA) 140 mmol/L 136-145 POTASSIUM (test code=K) 3.1 mmol/L 3.5-5.1 CHLORIDE (test code=CL) 109.0 mmol/L 98-107 CARBON DIOXIDE (test code=CO2) mmol/L 21-32 ANION GAP (test code=GAP) 10-20 GLUCOSE (test code=GLU) mg/dL 74-106 BLOOD UREA NITROGEN (test code=BUN) mg/dL 7-18 GLOMERULAR FILTRATION RATE (test code=GFR) mL/min >=60 CREATININE (test code=CREAT) mg/dL 0.55-1.02 BUN/CREATININE RATIO (test code=BUN/CREA) 10-20 CALCIUM (test code=CA) 8.0 mg/dL 8.5-10.1 CBC W/AUTO [id number] 11:20:00* Test Item Value Reference Range Comments WHITE BLOOD CELL (test code=WBC) 13.9 K/mm3 4.5-12.5 RED BLOOD CELL (test code=RBC) 3.46 mill/mm3 3.7-5.2 HEMOGLOBIN (test code=HGB) 10.6 gram/dL 11.5-15.5 HEMATOCRIT (test code=HCT) 31.4 % 36.0-46.0 MEAN CELL VOLUME (test code=MCV) 90.8 fL 80-98 MEAN CELL HGB (test code=MCH) 30.6 picogram 27.0-33.0 MEAN CELL HGB CONCETRATION (test code=MCHC) 33.8 gram/dL 33.0-36.0 RED CELL DISTRIBUTION WIDTH (test code=RDW) 13.4 % 11.6-16.2 RED CELL DISTRIBUTION WIDTH SD (test code=RDW-SD) 43.8 fL 37.0-51.0 PLATELET COUNT (test code=PLT) 291 K/mm3 150-450 MEAN PLATELET VOLUME (test code=MPV) 9.6 fL 6.7-11.0 NEUTROPHIL % (test code=NT%) 73.4 % 39.0-69.0 IMMATURE GRANULOCYTE % (test code=IG%) 0.4 % 0.0-5.0 LYMPHOCYTE % (test code=LY%) 19.7 % 25.0-55.0 MONOCYTE % (test code=MO%) 6.2 % 0.0-10.0 EOSINOPHIL % (test code=EO%) 0.1 % 0.0-5.0 BASOPHIL % (test code=BA%) 0.2 % 0.0-1.0 NUCLEATED RBC % (test code=NRBC%) 0.0 % 0-0 NEUTROPHIL # (test code=NT#) 10.23 K/mm3 1.8-7.7 IMMATURE GRANULOCYTE # (test code=IG#) 0.05 x10 3/uL 0-0.03 LYMPHOCYTE # (test code=LY#) 2.74 K/mm3 1.0-5.0 MONOCYTE # (test code=MO#) 0.86 K/mm3 0-0.8 EOSINOPHIL # (test code=EO#) 0.01 K/mm3 0.0-0.5 BASOPHIL # (test code=BA#) 0.03 K/mm3 0.0-0.2 NUCLEATED RBC # (test code=NRBC#) 0.00 K/mm3 0.0-0.1 MANUAL DIFF REQUIRED (test code=MDIFF) NO URINALYSIS [id number] 05:48:00* Test Item Value Reference Range Comments UA COLOR (test code=COLU) DARK YELLOW YELLOW UA APPEARANCE (test code=APPU) Cloudy CLEAR UA GLUCOSE DIPSTICK (test code=DGLUU) NEGATIVE mg/dL NEGATIVE UA BILIRUBIN DIPSTICK (test code=BILU) 2+ (Mod 2.0-4.0) mg/dL NEGATIVE UA KETONE DIPSTICK (test code=KETU) 20 (1+) mg/dL NEGATIVE UA SPECIFIC GRAVITY (test code=SGU) 1.027 1.001-1.035 UA BLOOD DIPSTICK (test code=SRINATH) Negative mg/dL NEGATIVE UA PH DIPSTICK (test code=HORTENSIA) 5.0 5.0-8.0 UA PROTEIN DIPSTICK (test code=PROU) 100 (2+) mg/dL NEGATIVE UA UROBILINIOGEN DIPSTICK (test code=URO) NEGATIVE mg/dL NEGATIVE UA NITRITE DIPSTICK (test code=CLAUDINE) NEGATIVE NEGATIVE UA LEUKOCYTE ESTERASE W REFLEX (test code=LEUUR) NEGATIVE Eugenio/uL NEGATIVE UA WBC (test code=WBCU) 0-5 per HPF 0-5 UA RBC (test code=RBCU) 6-10 #/HPF 0-5 UA EPITHELIAL CELLS (test code=EPIU) MOD per HPF FEW UA BACTERIA (test code=BACU) FEW #/HPF NONE UA HYALINE CAST (test code=HYALU) >20 #/LPF 0-5 UA MUCUS (test code=MUCU) MODERATE #/LPF FEW Urine Source? Clean CatchDRUGS OF ABUSE SCREEN [id number] 05:48:00* Test Item Value Reference Range Comments URN COCAINE (test code=COCAURN) NEGATIVE <300 ng/mL URN CANNABINOIDS (test code=CANNABURN) POSITIVE <50 ng/mL This test provides only a preliminary test result. A morespecific alternate chemical method must be used in order toobtain a confirmed analytical result. Gas chromatography/mass spectrometry (GC/MS) is thepreferred confirmatory method. Other chemical confirmationmethods are available. Clinical consideration and professional judgment should be applied to any drug of abusetest result, particularly when preliminary positive resultsare used.Unconfirmed screening results must not be used fornon-medical purposes (e.g., employment testing, legaltesting). URN AMPHETAMINE (test code=AMPHETURN) POSITIVE <1000 ng/mL This test provides only a preliminary test result. A morespecific alternate chemical method must be used in order toobtain a confirmed analytical result. Gas chromatography/mass spectrometry (GC/MS) is thepreferred confirmatory method. Other chemical confirmationmethods are available. Clinical consideration and professional judgment should be applied to any drug of abusetest result, particularly when preliminary positive resultsare used.Unconfirmed screening results must not be used fornon-medical purposes (e.g., employment testing, legaltesting). URN BARBITURATE (test code=BARBITURN) NEGATIVE <200 ng/mL URN BENZODIAZEPINE (test code=BENZOURN) POSITIVE <200 ng/mL This test provides only a preliminary test result. A morespecific alternate chemical method must be used in order toobtain a confirmed analytical result. Gas chromatography/mass spectrometry (GC/MS) is thepreferred confirmatory method. Other chemical confirmationmethods are available. Clinical consideration and professional judgment should be applied to any drug of abusetest result, particularly when preliminary positive resultsare used.Unconfirmed screening results must not be used fornon-medical purposes (e.g., employment testing, legaltesting). URN OPIATES (test code=OPIATURN) NEGATIVE <300 ng/mL URN PHENCYCLIDINE (PCP) (test code=PHENCURN) NEGATIVE <25 ng/mL URN METHADONE (test code=METHAURN) NEGATIVE <300 ng/mL Urine Source? Clean CatchBASIC METABOLIC [id number] 05:13:00* Test Item Value Reference Range Comments SODIUM (test code=NA) 142 mmol/L 136-145 POTASSIUM (test code=K) 3.6 mmol/L 3.5-5.1 CHLORIDE (test code=CL) 107.0 mmol/L 98-107 CARBON DIOXIDE (test code=CO2) 23.0 mmol/L 21-32 ANION GAP (test code=GAP) 15.6 10-20 GLUCOSE (test code=GLU) 81 mg/dL 74-106 BLOOD UREA NITROGEN (test code=BUN) 27 mg/dL 7-18 GLOMERULAR FILTRATION RATE (test code=GFR) 49 mL/min >=60 Estimated GFR by using Modified MDRD formula.Chronic kidney disease is defined as either kidney damageor GFR <60 mL/min/1.73 m2 for >3 months. CREATININE (test code=CREAT) 1.20 mg/dL 0.55-1.02 Note change in reference range due to change in reagent. BUN/CREATININE RATIO (test code=BUN/CREA) 22.5 10-20 CALCIUM (test code=CA) 9.1 mg/dL 8.5-10.1 HEPATIC FUNCTION [id number] 05:13:00* Test Item Value Reference Range Comments TOTAL PROTEIN (test code=PROT) 7.6 gram/dL 6.4-8.2 ALBUMIN (test code=ALB) 4.0 g/dL 3.4-5.0 GLOBULIN (test code=GLOB) 3.6 gram/dL 2.7-4.2 ALBUMIN/GLOBULIN RATIO (test code=A/G) 1.1 0.75-1.50 BILIRUBIN TOTAL (test code=BILT) 1.00 mg/dL 0.0-1.0 BILIRUBIN DIRECT (test code=BILD) 0.26 mg/dL 0.0-0.20 SGOT/AST (test code=AST) 40 IUnit/L 15-37 SGPT/ALT (test code=ALT) 23 IUnit/L 12-78 ALKALINE PHOSPHATASE TOTAL (test code=ALKP) 63 IUnit/L 45-117 Note change in reference range due to change in reagent. CREATINE KINASE (CK)2018-06-11 05:13:00* Test Item Value Reference Range Comments CREATINE KINASE (CK) (test code=CK) 582 IUnit/L 26-208 HCG SERUM [id number] 05:13:00* Test Item Value Reference Range Comments HCG SERUM QUAL (test code=HCGQL) NEGATIVE NEGATIVE This HCGQL test is NOT applicable for MALE patients.Check with nurse about probable order error.If Tumor Marker Test needed, nurse should order test "HCGTU"(Test #[id number]) [id number] 05:13:00* Test Item Value Reference Range Comments ACETAMINOPHEN (test code=ACET) < 10 mcg/mL 10-30 A RANGE OF 10-30 mcg/mL IS A THERAPEUTIC RANGE. TOXIC CONCENTRATIONS: >150 mcg/mL AT 4 HOURS AFTER INGESTION >=50 mcg/mL AT 12 HOURS AFTER INGESTION [id number] 05:13:00* Test Item Value Reference Range Comments SALICYLATE (test code=TERESA) < 1.7 mg/dL 2.8-20.0 [id number] 05:13:00* Test Item Value Reference Range Comments ALCOHOL (test code=ALC) < 3 mg/dL 0.0-3.0 INTERPRETIVE DATA NOTE: POSITIVE SCREENING RESULTS SHOULD BE CONSIDERED PRESUMPTIVE.WHEN COLLECTED FOR MEDICAL PURPOSES ONLY. SPECIMEN WILL NOTBE COLLECTED BY CHAIN OF CUSTODY.IF A CONFIRMATION OF POSITIVE RESULTS IS DESIRED, ACONFIRMATION TEST MUST BE REQUESTED BY THE PHYSICIAN AT ANADDITIONAL CHARGE TO THE PATIENT. URINALYSIS [id number] 05:13:00* Test Item Value Reference Range Comments UA COLOR (test code=COLU) DARK YELLOW YELLOW UA APPEARANCE (test code=APPU) Cloudy CLEAR UA GLUCOSE DIPSTICK (test code=DGLUU) NEGATIVE mg/dL NEGATIVE UA BILIRUBIN DIPSTICK (test code=BILU) 2+ (Mod 2.0-4.0) mg/dL NEGATIVE UA KETONE DIPSTICK (test code=KETU) 20 (1+) mg/dL NEGATIVE UA SPECIFIC GRAVITY (test code=SGU) 1.027 1.001-1.035 UA BLOOD DIPSTICK (test code=SRINATH) Negative mg/dL NEGATIVE UA PH DIPSTICK (test code=HORTENSIA) 5.0 5.0-8.0 UA PROTEIN DIPSTICK (test code=PROU) 100 (2+) mg/dL NEGATIVE UA UROBILINIOGEN DIPSTICK (test code=URO) NEGATIVE mg/dL NEGATIVE UA NITRITE DIPSTICK (test code=CLAUDINE) NEGATIVE NEGATIVE UA LEUKOCYTE ESTERASE W REFLEX (test code=LEUUR) NEGATIVE Eugenio/uL NEGATIVE UA WBC (test code=WBCU) 0-5 per HPF 0-5 UA RBC (test code=RBCU) 6-10 #/HPF 0-5 UA EPITHELIAL CELLS (test code=EPIU) MOD per HPF FEW UA BACTERIA (test code=BACU) FEW #/HPF NONE UA HYALINE CAST (test code=HYALU) >20 #/LPF 0-5 UA MUCUS (test code=MUCU) MODERATE #/LPF FEW Urine Source? Clean CatchDRUGS OF ABUSE SCREEN [id number] 05:13:00* Test Item Value Reference Range Comments URN COCAINE (test code=COCAURN) <300 ng/mL URN CANNABINOIDS (test code=CANNABURN) <50 ng/mL URN AMPHETAMINE (test code=AMPHETURN) <1000 ng/mL URN BARBITURATE (test code=BARBITURN) <200 ng/mL URN BENZODIAZEPINE (test code=BENZOURN) <200 ng/mL URN OPIATES (test code=OPIATURN) <300 ng/mL URN PHENCYCLIDINE (PCP) (test code=PHENCURN) <25 ng/mL URN METHADONE (test code=METHAURN) <300 ng/mL Urine Source? Clean CatchBASIC METABOLIC [id number] 04:55:00* Test Item Value Reference Range Comments SODIUM (test code=NA) 142 mmol/L 136-145 POTASSIUM (test code=K) 3.6 mmol/L 3.5-5.1 CHLORIDE (test code=CL) 107.0 mmol/L 98-107 CARBON DIOXIDE (test code=CO2) mmol/L 21-32 ANION GAP (test code=GAP) 10-20 GLUCOSE (test code=GLU) mg/dL 74-106 BLOOD UREA NITROGEN (test code=BUN) mg/dL 7-18 GLOMERULAR FILTRATION RATE (test code=GFR) mL/min >=60 CREATININE (test code=CREAT) mg/dL 0.55-1.02 BUN/CREATININE RATIO (test code=BUN/CREA) 10-20 CALCIUM (test code=CA) mg/dL 8.5-10.1 HEPATIC FUNCTION [id number] 04:55:00* Test Item Value Reference Range Comments TOTAL PROTEIN (test code=PROT) gram/dL 6.4-8.2 ALBUMIN (test code=ALB) g/dL 3.4-5.0 GLOBULIN (test code=GLOB) gram/dL 2.7-4.2 ALBUMIN/GLOBULIN RATIO (test code=A/G) 0.75-1.50 BILIRUBIN TOTAL (test code=BILT) mg/dL 0.0-1.0 BILIRUBIN DIRECT (test code=BILD) mg/dL 0.0-0.20 SGOT/AST (test code=AST) IUnit/L 15-37 SGPT/ALT (test code=ALT) IUnit/L 12-78 ALKALINE PHOSPHATASE TOTAL (test code=ALKP) IUnit/L 45-117 CREATINE KINASE (CK)2018-06-11 04:55:00* Test Item Value Reference Range Comments CREATINE KINASE (CK) (test code=CK) IUnit/L 26-208 HCG SERUM [id number] 04:55:00* Test Item Value Reference Range Comments HCG SERUM QUAL (test code=HCGQL) NEGATIVE NEGATIVE This HCGQL test is NOT applicable for MALE patients.Check with nurse about probable order error.If Tumor Marker Test needed, nurse should order test "HCGTU"(Test #550.46235) [id number] 04:55:00* Test Item Value Reference Range Comments ACETAMINOPHEN (test code=ACET) mcg/mL 10-30 [id number] 04:55:00* Test Item Value Reference Range Comments SALICYLATE (test code=TERESA) mg/dL 2.8-20.0 [id number] 04:55:00* Test Item Value Reference Range Comments ALCOHOL (test code=ALC) mg/dL 0-3 BASIC METABOLIC [id number] 04:54:00* Test Item Value Reference Range Comments SODIUM (test code=NA) mmol/L 136-145 POTASSIUM (test code=K) mmol/L 3.5-5.1 CHLORIDE (test code=CL) mmol/L 98-107 CARBON DIOXIDE (test code=CO2) mmol/L 21-32 ANION GAP (test code=GAP) 10-20 GLUCOSE (test code=GLU) mg/dL 74-106 BLOOD UREA NITROGEN (test code=BUN) mg/dL 7-18 GLOMERULAR FILTRATION RATE (test code=GFR) mL/min >=60 CREATININE (test code=CREAT) mg/dL 0.55-1.02 BUN/CREATININE RATIO (test code=BUN/CREA) 10-20 CALCIUM (test code=CA) mg/dL 8.5-10.1 HEPATIC FUNCTION [id number] 04:54:00* Test Item Value Reference Range Comments TOTAL PROTEIN (test code=PROT) gram/dL 6.4-8.2 ALBUMIN (test code=ALB) g/dL 3.4-5.0 GLOBULIN (test code=GLOB) gram/dL 2.7-4.2 ALBUMIN/GLOBULIN RATIO (test code=A/G) 0.75-1.50 BILIRUBIN TOTAL (test code=BILT) mg/dL 0.0-1.0 BILIRUBIN DIRECT (test code=BILD) mg/dL 0.0-0.20 SGOT/AST (test code=AST) IUnit/L 15-37 SGPT/ALT (test code=ALT) IUnit/L 12-78 ALKALINE PHOSPHATASE TOTAL (test code=ALKP) IUnit/L 45-117 CREATINE KINASE (CK)2018-06-11 04:54:00* Test Item Value Reference Range Comments CREATINE KINASE (CK) (test code=CK) IUnit/L 26-208 HCG SERUM [id number] 04:54:00* Test Item Value Reference Range Comments HCG SERUM QUAL (test code=HCGQL) NEGATIVE NEGATIVE This HCGQL test is NOT applicable for MALE patients.Check with nurse about probable order error.If Tumor Marker Test needed, nurse should order test "HCGTU"(Test #550.51754) [id number] 04:54:00* Test Item Value Reference Range Comments ACETAMINOPHEN (test code=ACET) mcg/mL 10-30 [id number] 04:54:00* Test Item Value Reference Range Comments SALICYLATE (test code=TERESA) mg/dL 2.8-20.0 [id number] 04:54:00* Test Item Value Reference Range Comments ALCOHOL (test code=ALC) mg/dL 0-3 CBC W/O [id number] 04:43:00* Test Item Value Reference Range Comments WHITE BLOOD CELL (test code=WBC) 22.2 K/mm3 4.5-12.5 RED BLOOD CELL (test code=RBC) 3.97 mill/mm3 3.7-5.2 HEMOGLOBIN (test code=HGB) 11.9 gram/dL 11.5-15.5 HEMATOCRIT (test code=HCT) 35.5 % 36.0-46.0 MEAN CELL VOLUME (test code=MCV) 89.4 fL 80-98 MEAN CELL HGB (test code=MCH) 30.0 picogram 27.0-33.0 MEAN CELL HGB CONCETRATION (test code=MCHC) 33.5 gram/dL 33.0-36.0 RED CELL DISTRIBUTION WIDTH (test code=RDW) 13.1 % 11.6-16.2 PLATELET COUNT (test code=PLT) 341 K/mm3 150-450 MEAN PLATELET VOLUME (test code=MPV) 9.7 fL 6.7-11.0 BASIC METABOLIC [id number] 22:11:00* Test Item Value Reference Range Comments SODIUM (test code=NA) 142 mmol/L 136-145 POTASSIUM (test code=K) 3.2 mmol/L 3.5-5.1 CHLORIDE (test code=CL) 109.0 mmol/L 98-107 CARBON DIOXIDE (test code=CO2) 24.0 mmol/L 21-32 ANION GAP (test code=GAP) 12.2 10-20 GLUCOSE (test code=GLU) 95 mg/dL 74-106 BLOOD UREA NITROGEN (test code=BUN) 18 mg/dL 7-18 GLOMERULAR FILTRATION RATE (test code=GFR) > 60 mL/min >=60 Estimated GFR by using Modified MDRD formula.Chronic kidney disease is defined as either kidney damageor GFR <60 mL/min/1.73 m2 for >3 months. CREATININE (test code=CREAT) 0.80 mg/dL 0.55-1.02 Note change in reference range due to change in reagent. BUN/CREATININE RATIO (test code=BUN/CREA) 22.5 10-20 CALCIUM (test code=CA) 8.2 mg/dL 8.5-10.1 HEPATIC FUNCTION [id number] 22:11:00* Test Item Value Reference Range Comments TOTAL PROTEIN (test code=PROT) 7.2 gram/dL 6.4-8.2 ALBUMIN (test code=ALB) 3.8 g/dL 3.4-5.0 GLOBULIN (test code=GLOB) 3.4 gram/dL 2.7-4.2 ALBUMIN/GLOBULIN RATIO (test code=A/G) 1.1 0.75-1.50 BILIRUBIN TOTAL (test code=BILT) 1.00 mg/dL 0.0-1.0 BILIRUBIN DIRECT (test code=BILD) 0.26 mg/dL 0.0-0.20 SGOT/AST (test code=AST) 17 IUnit/L 15-37 SGPT/ALT (test code=ALT) 20 IUnit/L 12-78 ALKALINE PHOSPHATASE TOTAL (test code=ALKP) 58 IUnit/L 45-117 Note change in reference range due to change in reagent. HCG SERUM [id number] 22:11:00* Test Item Value Reference Range Comments HCG SERUM QUAL (test code=HCGQL) NEGATIVE NEGATIVE This HCGQL test is NOT applicable for MALE patients.Check with nurse about probable order error.If Tumor Marker Test needed, nurse should order test "HCGTU"(Test #550.79731) [id number] 22:11:00* Test Item Value Reference Range Comments ACETAMINOPHEN (test code=ACET) < 10 mcg/mL 10-30 A RANGE OF 10-30 mcg/mL IS A THERAPEUTIC RANGE. TOXIC CONCENTRATIONS: >150 mcg/mL AT 4 HOURS AFTER INGESTION >=50 mcg/mL AT 12 HOURS AFTER INGESTION [id number] 22:11:00* Test Item Value Reference Range Comments SALICYLATE (test code=TERESA) 1.9 mg/dL 2.8-20.0 [id number] 22:11:00* Test Item Value Reference Range Comments ALCOHOL (test code=ALC) < 3 mg/dL 0.0-3.0 INTERPRETIVE DATA NOTE: POSITIVE SCREENING RESULTS SHOULD BE CONSIDERED PRESUMPTIVE.WHEN COLLECTED FOR MEDICAL PURPOSES ONLY. SPECIMEN WILL NOTBE COLLECTED BY CHAIN OF CUSTODY.IF A CONFIRMATION OF POSITIVE RESULTS IS DESIRED, ACONFIRMATION TEST MUST BE REQUESTED BY THE PHYSICIAN AT ANADDITIONAL CHARGE TO THE PATIENT. BASIC METABOLIC [id number] 21:57:00* Test Item Value Reference Range Comments SODIUM (test code=NA) 142 mmol/L 136-145 POTASSIUM (test code=K) 3.2 mmol/L 3.5-5.1 CHLORIDE (test code=CL) 109.0 mmol/L 98-107 CARBON DIOXIDE (test code=CO2) mmol/L 21-32 ANION GAP (test code=GAP) 10-20 GLUCOSE (test code=GLU) mg/dL 74-106 BLOOD UREA NITROGEN (test code=BUN) mg/dL 7-18 GLOMERULAR FILTRATION RATE (test code=GFR) mL/min >=60 CREATININE (test code=CREAT) mg/dL 0.55-1.02 BUN/CREATININE RATIO (test code=BUN/CREA) 10-20 CALCIUM (test code=CA) mg/dL 8.5-10.1 HEPATIC FUNCTION [id number] 21:57:00* Test Item Value Reference Range Comments TOTAL PROTEIN (test code=PROT) gram/dL 6.4-8.2 ALBUMIN (test code=ALB) g/dL 3.4-5.0 GLOBULIN (test code=GLOB) gram/dL 2.7-4.2 ALBUMIN/GLOBULIN RATIO (test code=A/G) 0.75-1.50 BILIRUBIN TOTAL (test code=BILT) mg/dL 0.0-1.0 BILIRUBIN DIRECT (test code=BILD) mg/dL 0.0-0.20 SGOT/AST (test code=AST) IUnit/L 15-37 SGPT/ALT (test code=ALT) IUnit/L 12-78 ALKALINE PHOSPHATASE TOTAL (test code=ALKP) IUnit/L 45-117 HCG SERUM [id number] 21:57:00* Test Item Value Reference Range Comments HCG SERUM QUAL (test code=HCGQL) NEGATIVE [id number] 21:57:00* Test Item Value Reference Range Comments ACETAMINOPHEN (test code=ACET) mcg/mL 10-30 [id number] 21:57:00* Test Item Value Reference Range Comments SALICYLATE (test code=TERESA) mg/dL 2.8-20.0 [id number] 21:57:00* Test Item Value Reference Range Comments ALCOHOL (test code=ALC) mg/dL 0-3 BASIC METABOLIC [id number] 21:57:00* Test Item Value Reference Range Comments SODIUM (test code=NA) 142 mmol/L 136-145 POTASSIUM (test code=K) 3.2 mmol/L 3.5-5.1 CHLORIDE (test code=CL) 109.0 mmol/L 98-107 CARBON DIOXIDE (test code=CO2) mmol/L 21-32 ANION GAP (test code=GAP) 10-20 GLUCOSE (test code=GLU) mg/dL 74-106 BLOOD UREA NITROGEN (test code=BUN) mg/dL 7-18 GLOMERULAR FILTRATION RATE (test code=GFR) mL/min >=60 CREATININE (test code=CREAT) mg/dL 0.55-1.02 BUN/CREATININE RATIO (test code=BUN/CREA) 10-20 CALCIUM (test code=CA) mg/dL 8.5-10.1 HEPATIC FUNCTION [id number] 21:57:00* Test Item Value Reference Range Comments TOTAL PROTEIN (test code=PROT) gram/dL 6.4-8.2 ALBUMIN (test code=ALB) g/dL 3.4-5.0 GLOBULIN (test code=GLOB) gram/dL 2.7-4.2 ALBUMIN/GLOBULIN RATIO (test code=A/G) 0.75-1.50 BILIRUBIN TOTAL (test code=BILT) mg/dL 0.0-1.0 BILIRUBIN DIRECT (test code=BILD) mg/dL 0.0-0.20 SGOT/AST (test code=AST) IUnit/L 15-37 SGPT/ALT (test code=ALT) IUnit/L 12-78 ALKALINE PHOSPHATASE TOTAL (test code=ALKP) IUnit/L 45-117 HCG SERUM [id number] 21:57:00* Test Item Value Reference Range Comments HCG SERUM QUAL (test code=HCGQL) NEGATIVE NEGATIVE This HCGQL test is NOT applicable for MALE patients.Check with nurse about probable order error.If Tumor Marker Test needed, nurse should order test "HCGTU"(Test #[id number]) [id number] 21:57:00* Test Item Value Reference Range Comments ACETAMINOPHEN (test code=ACET) mcg/mL 10-30 [id number] 21:57:00* Test Item Value Reference Range Comments SALICYLATE (test code=TERESA) mg/dL 2.8-20.0 [id number] 21:57:00* Test Item Value Reference Range Comments ALCOHOL (test code=ALC) mg/dL 0-3 CBC W/O [id number] 21:44:00* Test Item Value Reference Range Comments WHITE BLOOD CELL (test code=WBC) 11.2 K/mm3 4.5-12.5 RED BLOOD CELL (test code=RBC) 4.07 mill/mm3 3.7-5.2 HEMOGLOBIN (test code=HGB) 12.2 gram/dL 11.5-15.5 HEMATOCRIT (test code=HCT) 37.0 % 36.0-46.0 MEAN CELL VOLUME (test code=MCV) 90.9 fL 80-98 MEAN CELL HGB (test code=MCH) 30.0 picogram 27.0-33.0 MEAN CELL HGB CONCETRATION (test code=MCHC) 33.0 gram/dL 33.0-36.0 RED CELL DISTRIBUTION WIDTH (test code=RDW) 13.0 % 11.6-16.2 PLATELET COUNT (test code=PLT) 313 K/mm3 150-450 MEAN PLATELET VOLUME (test code=MPV) 9.3 fL 6.7-11.0 CBC W/O [id number] 21:41:00* Test Item Value Reference Range Comments WHITE BLOOD CELL (test code=WBC) K/mm3 4.5-12.5 RED BLOOD CELL (test code=RBC) mill/mm3 3.7-5.2 HEMOGLOBIN (test code=HGB) 12.2 gram/dL 11.5-15.5 HEMATOCRIT (test code=HCT) 37.0 % 36.0-46.0 MEAN CELL VOLUME (test code=MCV) fL 80-98 MEAN CELL HGB (test code=MCH) picogram 27.0-33.0 MEAN CELL HGB CONCETRATION (test code=MCHC) gram/dL 33.0-36.0 RED CELL DISTRIBUTION WIDTH (test code=RDW) % 11.6-16.2 PLATELET COUNT (test code=PLT) K/mm3 150-450 MEAN PLATELET VOLUME (test code=MPV) fL 6.7-11.0 URINALYSIS [id number] 19:37:00* Test Item Value Reference Range Comments UA COLOR (test code=COLU) DARK YELLOW YELLOW UA APPEARANCE (test code=APPU) Cloudy CLEAR UA GLUCOSE DIPSTICK (test code=DGLUU) NEGATIVE mg/dL NEGATIVE UA BILIRUBIN DIPSTICK (test code=BILU) NEGATIVE mg/dL NEGATIVE UA KETONE DIPSTICK (test code=KETU) 5 (Trace) mg/dL NEGATIVE UA SPECIFIC GRAVITY (test code=SGU) 1.025 1.001-1.035 UA BLOOD DIPSTICK (test code=SRINATH) 1+ (Small) mg/dL NEGATIVE UA PH DIPSTICK (test code=HORTENSIA) 5.0 5.0-8.0 UA PROTEIN DIPSTICK (test code=PROU) 100 (2+) mg/dL NEGATIVE UA UROBILINIOGEN DIPSTICK (test code=URO) NEGATIVE mg/dL NEGATIVE UA NITRITE DIPSTICK (test code=CLAUDINE) NEGATIVE NEGATIVE UA LEUKOCYTE ESTERASE W REFLEX (test code=LEUUR) 3+ Eugenio/uL NEGATIVE UA WBC (test code=WBCU) >50 per HPF 0-5 UA RBC (test code=RBCU) >20 #/HPF 0-5 UA WBC CLUMPS (test code=WBCUCL) 3-6 /HPF NONE UA EPITHELIAL CELLS (test code=EPIU) FEW per HPF FEW UA BACTERIA (test code=BACU) MANY #/HPF NONE UA HYALINE CAST (test code=HYALU) >20 #/LPF 0-5 UA MUCUS (test code=MUCU) MANY #/LPF FEW UA YEAST (test code=YEASTU) FEW #/HPF NONE Urine Source? Clean CatchDRUGS OF ABUSE SCREEN [id number] 19:37:00* Test Item Value Reference Range Comments URN COCAINE (test code=COCAURN) NEGATIVE <300 ng/mL URN CANNABINOIDS (test code=CANNABURN) POSITIVE <50 ng/mL This test provides only a preliminary test result. A morespecific alternate chemical method must be used in order toobtain a confirmed analytical result. Gas chromatography/mass spectrometry (GC/MS) is thepreferred confirmatory method. Other chemical confirmationmethods are available. Clinical consideration and professional judgment should be applied to any drug of abusetest result, particularly when preliminary positive resultsare used.Unconfirmed screening results must not be used fornon-medical purposes (e.g., employment testing, legaltesting). URN AMPHETAMINE (test code=AMPHETURN) POSITIVE <1000 ng/mL This test provides only a preliminary test result. A morespecific alternate chemical method must be used in order toobtain a confirmed analytical result. Gas chromatography/mass spectrometry (GC/MS) is thepreferred confirmatory method. Other chemical confirmationmethods are available. Clinical consideration and professional judgment should be applied to any drug of abusetest result, particularly when preliminary positive resultsare used.Unconfirmed screening results must not be used fornon-medical purposes (e.g., employment testing, legaltesting). URN BARBITURATE (test code=BARBITURN) NEGATIVE <200 ng/mL URN BENZODIAZEPINE (test code=BENZOURN) NEGATIVE <200 ng/mL URN OPIATES (test code=OPIATURN) NEGATIVE <300 ng/mL URN PHENCYCLIDINE (PCP) (test code=PHENCURN) NEGATIVE <25 ng/mL URN METHADONE (test code=METHAURN) NEGATIVE <300 ng/mL Urine Source? Clean CatchURINALYSIS [id number] 18:57:00* Test Item Value Reference Range Comments UA COLOR (test code=COLU) DARK YELLOW YELLOW UA APPEARANCE (test code=APPU) Cloudy CLEAR UA GLUCOSE DIPSTICK (test code=DGLUU) NEGATIVE mg/dL NEGATIVE UA BILIRUBIN DIPSTICK (test code=BILU) NEGATIVE mg/dL NEGATIVE UA KETONE DIPSTICK (test code=KETU) 5 (Trace) mg/dL NEGATIVE UA SPECIFIC GRAVITY (test code=SGU) 1.025 1.001-1.035 UA BLOOD DIPSTICK (test code=SRINATH) 1+ (Small) mg/dL NEGATIVE UA PH DIPSTICK (test code=HORTENSIA) 5.0 5.0-8.0 UA PROTEIN DIPSTICK (test code=PROU) 100 (2+) mg/dL NEGATIVE UA UROBILINIOGEN DIPSTICK (test code=URO) NEGATIVE mg/dL NEGATIVE UA NITRITE DIPSTICK (test code=CLAUDINE) NEGATIVE NEGATIVE UA LEUKOCYTE ESTERASE W REFLEX (test code=LEUUR) 3+ Eugenio/uL NEGATIVE UA WBC (test code=WBCU) >50 per HPF 0-5 UA RBC (test code=RBCU) >20 #/HPF 0-5 UA WBC CLUMPS (test code=WBCUCL) 3-6 /HPF NONE UA EPITHELIAL CELLS (test code=EPIU) FEW per HPF FEW UA BACTERIA (test code=BACU) MANY #/HPF NONE UA HYALINE CAST (test code=HYALU) >20 #/LPF 0-5 UA MUCUS (test code=MUCU) MANY #/LPF FEW UA YEAST (test code=YEASTU) FEW #/HPF NONE Urine Source? Clean CatchDRUGS OF ABUSE SCREEN [id number] 18:57:00* Test Item Value Reference Range Comments URN COCAINE (test code=COCAURN) <300 ng/mL URN CANNABINOIDS (test code=CANNABURN) <50 ng/mL URN AMPHETAMINE (test code=AMPHETURN) <1000 ng/mL URN BARBITURATE (test code=BARBITURN) <200 ng/mL URN BENZODIAZEPINE (test code=BENZOURN) <200 ng/mL URN OPIATES (test code=OPIATURN) <300 ng/mL URN PHENCYCLIDINE (PCP) (test code=PHENCURN) <25 ng/mL URN METHADONE (test code=METHAURN) <300 ng/mL Urine Source? Clean CatchURINALYSIS [id number] 18:52:00* Test Item Value Reference Range Comments UA COLOR (test code=COLU) DARK YELLOW YELLOW UA APPEARANCE (test code=APPU) Cloudy CLEAR UA GLUCOSE DIPSTICK (test code=DGLUU) NEGATIVE mg/dL NEGATIVE UA BILIRUBIN DIPSTICK (test code=BILU) NEGATIVE mg/dL NEGATIVE UA KETONE DIPSTICK (test code=KETU) 5 (Trace) mg/dL NEGATIVE UA SPECIFIC GRAVITY (test code=SGU) 1.025 1.001-1.035 UA BLOOD DIPSTICK (test code=SRINATH) 1+ (Small) mg/dL NEGATIVE UA PH DIPSTICK (test code=HORTENSIA) 5.0 5.0-8.0 UA PROTEIN DIPSTICK (test code=PROU) 100 (2+) mg/dL NEGATIVE UA UROBILINIOGEN DIPSTICK (test code=URO) NEGATIVE mg/dL NEGATIVE UA NITRITE DIPSTICK (test code=CLAUDINE) NEGATIVE NEGATIVE UA LEUKOCYTE ESTERASE W REFLEX (test code=LEUUR) 3+ Eugenio/uL NEGATIVE UA WBC (test code=WBCU) per HPF 0-5 UA RBC (test code=RBCU) per HPF 0-5 UA EPITHELIAL CELLS (test code=EPIU) per HPF Few UA BACTERIA (test code=BACU) per HPF NONE Urine Source? Clean CatchDRUGS OF ABUSE SCREEN [id number] 18:52:00* Test Item Value Reference Range Comments URN COCAINE (test code=COCAURN) <300 ng/mL URN CANNABINOIDS (test code=CANNABURN) <50 ng/mL URN AMPHETAMINE (test code=AMPHETURN) <1000 ng/mL URN BARBITURATE (test code=BARBITURN) <200 ng/mL URN BENZODIAZEPINE (test code=BENZOURN) <200 ng/mL URN OPIATES (test code=OPIATURN) <300 ng/mL URN PHENCYCLIDINE (PCP) (test code=PHENCURN) <25 ng/mL URN METHADONE (test code=METHAURN) <300 ng/mL Urine Source? Clean CatchVALPROIC ACID (DEPAKENE)[id number] 22:58:00* Test Item Value Reference Range Comments VALPROIC ACID (DEPAKENE) (test code=VALP) 38.0 mcg/mL 50.0-100.0 URINALYSIS [id number] 23:53:00* Test Item Value Reference Range Comments UA COLOR (test code=COLU) DARK YELLOW YELLOW UA APPEARANCE (test code=APPU) SLIGHTLY CLOUDY CLEAR UA GLUCOSE DIPSTICK (test code=DGLUU) NEGATIVE mg/dL NEGATIVE UA BILIRUBIN DIPSTICK (test code=BILU) NEGATIVE mg/dL NEGATIVE UA KETONE DIPSTICK (test code=KETU) NEGATIVE mg/dL NEGATIVE UA SPECIFIC GRAVITY (test code=SGU) 1.020 1.001-1.035 UA BLOOD DIPSTICK (test code=SRINATH) Negative mg/dL NEGATIVE UA PH DIPSTICK (test code=HORTENSIA) 5.0 5.0-8.0 UA PROTEIN DIPSTICK (test code=PROU) 30 (1+) mg/dL NEGATIVE UA UROBILINIOGEN DIPSTICK (test code=URO) 2.0 (1+) mg/dL NEGATIVE UA NITRITE DIPSTICK (test code=CLAUDINE) POSITIVE NEGATIVE UA LEUKOCYTE ESTERASE W REFLEX (test code=LEUUR) NEGATIVE Eugenio/uL NEGATIVE UA WBC (test code=WBCU) 3-5 per HPF 0-5 UA RBC (test code=RBCU) 0-2 #/HPF 0-5 UA EPITHELIAL CELLS (test code=EPIU) FEW per HPF FEW UA BACTERIA (test code=BACU) MODERATE #/HPF NONE UA HYALINE CAST (test code=HYALU) >20 #/LPF 0-5 UA MUCUS (test code=MUCU) MANY #/LPF FEW Urine Source? Clean CatchDRUGS OF ABUSE SCREEN [id number] 23:53:00* Test Item Value Reference Range Comments URN COCAINE (test code=COCAURN) NEGATIVE <300 ng/mL URN CANNABINOIDS (test code=CANNABURN) POSITIVE <50 ng/mL This test provides only a preliminary test result. A morespecific alternate chemical method must be used in order toobtain a confirmed analytical result. Gas chromatography/mass spectrometry (GC/MS) is thepreferred confirmatory method. Other chemical confirmationmethods are available. Clinical consideration and professional judgment should be applied to any drug of abusetest result, particularly when preliminary positive resultsare used.Unconfirmed screening results must not be used fornon-medical purposes (e.g., employment testing, legaltesting). URN AMPHETAMINE (test code=AMPHETURN) POSITIVE <1000 ng/mL This test provides only a preliminary test result. A morespecific alternate chemical method must be used in order toobtain a confirmed analytical result. Gas chromatography/mass spectrometry (GC/MS) is thepreferred confirmatory method. Other chemical confirmationmethods are available. Clinical consideration and professional judgment should be applied to any drug of abusetest result, particularly when preliminary positive resultsare used.Unconfirmed screening results must not be used fornon-medical purposes (e.g., employment testing, legaltesting). URN BARBITURATE (test code=BARBITURN) NEGATIVE <200 ng/mL URN BENZODIAZEPINE (test code=BENZOURN) NEGATIVE <200 ng/mL URN OPIATES (test code=OPIATURN) NEGATIVE <300 ng/mL URN PHENCYCLIDINE (PCP) (test code=PHENCURN) NEGATIVE <25 ng/mL URN METHADONE (test code=METHAURN) NEGATIVE <300 ng/mL Urine Source? Clean CatchBASIC METABOLIC [id number] 23:47:00* Test Item Value Reference Range Comments SODIUM (test code=NA) 139 mmol/L 136-145 POTASSIUM (test code=K) 3.7 mmol/L 3.5-5.1 CHLORIDE (test code=CL) 107.0 mmol/L 98-107 CARBON DIOXIDE (test code=CO2) 23.0 mmol/L 21-32 ANION GAP (test code=GAP) 12.7 10-20 GLUCOSE (test code=GLU) 126 mg/dL 74-106 BLOOD UREA NITROGEN (test code=BUN) 17 mg/dL 7-18 GLOMERULAR FILTRATION RATE (test code=GFR) > 60 mL/min >=60 Estimated GFR by using Modified MDRD formula.Chronic kidney disease is defined as either kidney damageor GFR <60 mL/min/1.73 m2 for >3 months. CREATININE (test code=CREAT) 0.70 mg/dL 0.55-1.02 Note change in reference range due to change in reagent. BUN/CREATININE RATIO (test code=BUN/CREA) 24.3 10-20 CALCIUM (test code=CA) 8.9 mg/dL 8.5-10.1 HEPATIC FUNCTION [id number] 23:47:00* Test Item Value Reference Range Comments TOTAL PROTEIN (test code=PROT) 7.8 gram/dL 6.4-8.2 ALBUMIN (test code=ALB) 4.0 g/dL 3.4-5.0 GLOBULIN (test code=GLOB) 3.8 gram/dL 2.7-4.2 ALBUMIN/GLOBULIN RATIO (test code=A/G) 1.1 0.75-1.50 BILIRUBIN TOTAL (test code=BILT) 0.80 mg/dL 0.0-1.0 BILIRUBIN DIRECT (test code=BILD) 0.16 mg/dL 0.0-0.20 SGOT/AST (test code=AST) 17 IUnit/L 15-37 SGPT/ALT (test code=ALT) 19 IUnit/L 12-78 ALKALINE PHOSPHATASE TOTAL (test code=ALKP) 57 IUnit/L 45-117 Note change in reference range due to change in reagent. HCG SERUM [id number] 23:47:00* Test Item Value Reference Range Comments HCG SERUM QUAL (test code=HCGQL) NEGATIVE NEGATIVE This HCGQL test is NOT applicable for MALE patients.Check with nurse about probable order error.If Tumor Marker Test needed, nurse should order test "HCGTU"(Test #[id number]) [id number] 23:47:00* Test Item Value Reference Range Comments ALCOHOL (test code=ALC) < 3 mg/dL 0.0-3.0 INTERPRETIVE DATA NOTE: POSITIVE SCREENING RESULTS SHOULD BE CONSIDERED PRESUMPTIVE.WHEN COLLECTED FOR MEDICAL PURPOSES ONLY. SPECIMEN WILL NOTBE COLLECTED BY CHAIN OF CUSTODY.IF A CONFIRMATION OF POSITIVE RESULTS IS DESIRED, ACONFIRMATION TEST MUST BE REQUESTED BY THE PHYSICIAN AT ANADDITIONAL CHARGE TO THE PATIENT. BASIC METABOLIC [id number] 23:40:00* Test Item Value Reference Range Comments SODIUM (test code=NA) 139 mmol/L 136-145 POTASSIUM (test code=K) 3.7 mmol/L 3.5-5.1 CHLORIDE (test code=CL) 107.0 mmol/L 98-107 CARBON DIOXIDE (test code=CO2) mmol/L 21-32 ANION GAP (test code=GAP) 10-20 GLUCOSE (test code=GLU) mg/dL 74-106 BLOOD UREA NITROGEN (test code=BUN) mg/dL 7-18 GLOMERULAR FILTRATION RATE (test code=GFR) mL/min >=60 CREATININE (test code=CREAT) mg/dL 0.55-1.02 BUN/CREATININE RATIO (test code=BUN/CREA) 10-20 CALCIUM (test code=CA) mg/dL 8.5-10.1 HEPATIC FUNCTION [id number] 23:40:00* Test Item Value Reference Range Comments TOTAL PROTEIN (test code=PROT) gram/dL 6.4-8.2 ALBUMIN (test code=ALB) g/dL 3.4-5.0 GLOBULIN (test code=GLOB) gram/dL 2.7-4.2 ALBUMIN/GLOBULIN RATIO (test code=A/G) 0.75-1.50 BILIRUBIN TOTAL (test code=BILT) mg/dL 0.0-1.0 BILIRUBIN DIRECT (test code=BILD) mg/dL 0.0-0.20 SGOT/AST (test code=AST) IUnit/L 15-37 SGPT/ALT (test code=ALT) IUnit/L 12-78 ALKALINE PHOSPHATASE TOTAL (test code=ALKP) IUnit/L 45-117 HCG SERUM [id number] 23:40:00* Test Item Value Reference Range Comments HCG SERUM QUAL (test code=HCGQL) NEGATIVE NEGATIVE This HCGQL test is NOT applicable for MALE patients.Check with nurse about probable order error.If Tumor Marker Test needed, nurse should order test "HCGTU"(Test #[id number]) [id number] 23:40:00* Test Item Value Reference Range Comments ALCOHOL (test code=ALC) mg/dL 0-3 BASIC METABOLIC [id number] 23:36:00* Test Item Value Reference Range Comments SODIUM (test code=NA) 139 mmol/L 136-145 POTASSIUM (test code=K) 3.7 mmol/L 3.5-5.1 CHLORIDE (test code=CL) 107.0 mmol/L 98-107 CARBON DIOXIDE (test code=CO2) mmol/L 21-32 ANION GAP (test code=GAP) 10-20 GLUCOSE (test code=GLU) mg/dL 74-106 BLOOD UREA NITROGEN (test code=BUN) mg/dL 7-18 GLOMERULAR FILTRATION RATE (test code=GFR) mL/min >=60 CREATININE (test code=CREAT) mg/dL 0.55-1.02 BUN/CREATININE RATIO (test code=BUN/CREA) 10-20 CALCIUM (test code=CA) mg/dL 8.5-10.1 HEPATIC FUNCTION [id number] 23:36:00* Test Item Value Reference Range Comments TOTAL PROTEIN (test code=PROT) gram/dL 6.4-8.2 ALBUMIN (test code=ALB) g/dL 3.4-5.0 GLOBULIN (test code=GLOB) gram/dL 2.7-4.2 ALBUMIN/GLOBULIN RATIO (test code=A/G) 0.75-1.50 BILIRUBIN TOTAL (test code=BILT) mg/dL 0.0-1.0 BILIRUBIN DIRECT (test code=BILD) mg/dL 0.0-0.20 SGOT/AST (test code=AST) IUnit/L 15-37 SGPT/ALT (test code=ALT) IUnit/L 12-78 ALKALINE PHOSPHATASE TOTAL (test code=ALKP) IUnit/L 45-117 HCG SERUM [id number] 23:36:00* Test Item Value Reference Range Comments HCG SERUM QUAL (test code=HCGQL) NEGATIVE [id number] 23:36:00* Test Item Value Reference Range Comments ALCOHOL (test code=ALC) mg/dL 0-3 CBC W/O [id number] 23:35:00* Test Item Value Reference Range Comments WHITE BLOOD CELL (test code=WBC) 12.2 K/mm3 4.5-12.5 RED BLOOD CELL (test code=RBC) 4.35 mill/mm3 3.7-5.2 HEMOGLOBIN (test code=HGB) 12.9 gram/dL 11.5-15.5 HEMATOCRIT (test code=HCT) 39.2 % 36.0-46.0 MEAN CELL VOLUME (test code=MCV) 90.1 fL 80-98 MEAN CELL HGB (test code=MCH) 29.7 picogram 27.0-33.0 MEAN CELL HGB CONCETRATION (test code=MCHC) 32.9 gram/dL 33.0-36.0 RED CELL DISTRIBUTION WIDTH (test code=RDW) 13.2 % 11.6-16.2 PLATELET COUNT (test code=PLT) 311 K/mm3 150-450 MEAN PLATELET VOLUME (test code=MPV) 9.7 fL 6.7-11.0 CBC W/O [id number] 23:33:00* Test Item Value Reference Range Comments WHITE BLOOD CELL (test code=WBC) K/mm3 4.5-12.5 RED BLOOD CELL (test code=RBC) mill/mm3 3.7-5.2 HEMOGLOBIN (test code=HGB) 12.9 gram/dL 11.5-15.5 HEMATOCRIT (test code=HCT) 39.2 % 36.0-46.0 MEAN CELL VOLUME (test code=MCV) fL 80-98 MEAN CELL HGB (test code=MCH) picogram 27.0-33.0 MEAN CELL HGB CONCETRATION (test code=MCHC) gram/dL 33.0-36.0 RED CELL DISTRIBUTION WIDTH (test code=RDW) % 11.6-16.2 PLATELET COUNT (test code=PLT) K/mm3 150-450 MEAN PLATELET VOLUME (test code=MPV) fL 6.7-11.0 URINALYSIS [id number] 23:29:00* Test Item Value Reference Range Comments UA COLOR (test code=COLU) DARK YELLOW YELLOW UA APPEARANCE (test code=APPU) SLIGHTLY CLOUDY CLEAR UA GLUCOSE DIPSTICK (test code=DGLUU) NEGATIVE mg/dL NEGATIVE UA BILIRUBIN DIPSTICK (test code=BILU) NEGATIVE mg/dL NEGATIVE UA KETONE DIPSTICK (test code=KETU) NEGATIVE mg/dL NEGATIVE UA SPECIFIC GRAVITY (test code=SGU) 1.020 1.001-1.035 UA BLOOD DIPSTICK (test code=SRINATH) Negative mg/dL NEGATIVE UA PH DIPSTICK (test code=HORTENSIA) 5.0 5.0-8.0 UA PROTEIN DIPSTICK (test code=PROU) 30 (1+) mg/dL NEGATIVE UA UROBILINIOGEN DIPSTICK (test code=URO) 2.0 (1+) mg/dL NEGATIVE UA NITRITE DIPSTICK (test code=CLAUDINE) POSITIVE NEGATIVE UA LEUKOCYTE ESTERASE W REFLEX (test code=LEUUR) NEGATIVE Eugenio/uL NEGATIVE UA WBC (test code=WBCU) 3-5 per HPF 0-5 UA RBC (test code=RBCU) 0-2 #/HPF 0-5 UA EPITHELIAL CELLS (test code=EPIU) FEW per HPF FEW UA BACTERIA (test code=BACU) MODERATE #/HPF NONE UA HYALINE CAST (test code=HYALU) >20 #/LPF 0-5 UA MUCUS (test code=MUCU) MANY #/LPF FEW Urine Source? Clean CatchDRUGS OF ABUSE SCREEN [id number] 23:29:00* Test Item Value Reference Range Comments URN COCAINE (test code=COCAURN) <300 ng/mL URN CANNABINOIDS (test code=CANNABURN) <50 ng/mL URN AMPHETAMINE (test code=AMPHETURN) <1000 ng/mL URN BARBITURATE (test code=BARBITURN) <200 ng/mL URN BENZODIAZEPINE (test code=BENZOURN) <200 ng/mL URN OPIATES (test code=OPIATURN) <300 ng/mL URN PHENCYCLIDINE (PCP) (test code=PHENCURN) <25 ng/mL URN METHADONE (test code=METHAURN) <300 ng/mL Urine Source? Clean CatchBASIC METABOLIC [id number] 01:46:00* Test Item Value Reference Range Comments SODIUM (test code=NA) 138 mmol/L 136-145 POTASSIUM (test code=K) 5.5 mmol/L 3.5-5.1 CHLORIDE (test code=CL) 106.0 mmol/L 98-107 CARBON DIOXIDE (test code=CO2) 26.0 mmol/L 21-32 ANION GAP (test code=GAP) 11.5 10-20 GLUCOSE (test code=GLU) 107 mg/dL 74-106 BLOOD UREA NITROGEN (test code=BUN) 19 mg/dL 7-18 GLOMERULAR FILTRATION RATE (test code=GFR) > 60 mL/min >=60 Estimated GFR by using Modified MDRD formula.Chronic kidney disease is defined as either kidney damageor GFR <60 mL/min/1.73 m2 for >3 months. CREATININE (test code=CREAT) 0.60 mg/dL 0.55-1.02 Note change in reference range due to change in reagent. BUN/CREATININE RATIO (test code=BUN/CREA) 31.7 10-20 CALCIUM (test code=CA) 8.9 mg/dL 8.5-10.1 HEPATIC FUNCTION [id number] 01:46:00* Test Item Value Reference Range Comments TOTAL PROTEIN (test code=PROT) 7.3 gram/dL 6.4-8.2 ALBUMIN (test code=ALB) 3.3 g/dL 3.4-5.0 GLOBULIN (test code=GLOB) 4.0 gram/dL 2.7-4.2 ALBUMIN/GLOBULIN RATIO (test code=A/G) 0.8 0.75-1.50 BILIRUBIN TOTAL (test code=BILT) 0.40 mg/dL 0.0-1.0 BILIRUBIN DIRECT (test code=BILD) < 0.05 mg/dL 0.0-0.20 SGOT/AST (test code=AST) 42 IUnit/L 15-37 SGPT/ALT (test code=ALT) 22 IUnit/L 12-78 ALKALINE PHOSPHATASE TOTAL (test code=ALKP) 58 IUnit/L 45-117 Note change in reference range due to change in reagent. [id number] 01:46:00* Test Item Value Reference Range Comments ALCOHOL (test code=ALC) < 3 mg/dL 0.0-3.0 INTERPRETIVE DATA NOTE: POSITIVE SCREENING RESULTS SHOULD BE CONSIDERED PRESUMPTIVE.WHEN COLLECTED FOR MEDICAL PURPOSES ONLY. SPECIMEN WILL NOTBE COLLECTED BY CHAIN OF CUSTODY.IF A CONFIRMATION OF POSITIVE RESULTS IS DESIRED, ACONFIRMATION TEST MUST BE REQUESTED BY THE PHYSICIAN AT ANADDITIONAL CHARGE TO THE PATIENT. URINALYSIS [id number] 01:44:00* Test Item Value Reference Range Comments UA COLOR (test code=COLU) LIGHT YELLOW YELLOW UA APPEARANCE (test code=APPU) CLEAR CLEAR UA GLUCOSE DIPSTICK (test code=DGLUU) NEGATIVE mg/dL NEGATIVE UA BILIRUBIN DIPSTICK (test code=BILU) NEGATIVE mg/dL NEGATIVE UA KETONE DIPSTICK (test code=KETU) Negative mg/dL NEGATIVE UA SPECIFIC GRAVITY (test code=SGU) 1.005 1.001-1.035 UA BLOOD DIPSTICK (test code=SRINATH) Negative NEGATIVE UA PH DIPSTICK (test code=HORTENSIA) 8.0 5.0-8.0 UA PROTEIN DIPSTICK (test code=PROU) Negative mg/dL NEGATIVE UA UROBILINIOGEN DIPSTICK (test code=URO) NEGATIVE mg/dL NEGATIVE UA NITRITE DIPSTICK (test code=CLAUDINE) NEGATIVE NEGATIVE UA LEUKOCYTE ESTERASE W REFLEX (test code=LEUUR) NEGATIVE NEGATIVE UA WBC (test code=WBCU) 0-5 #/HPF 0-5 UA RBC (test code=RBCU) 0-2 #/HPF 0-5 UA EPITHELIAL CELLS (test code=EPIU) FEW per HPF FEW UA BACTERIA (test code=BACU) FEW #/HPF NONE Urine Source? Clean CatchDRUGS OF ABUSE SCREEN [id number] 01:44:00* Test Item Value Reference Range Comments URN COCAINE (test code=COCAURN) NEGATIVE <300 ng/mL URN CANNABINOIDS (test code=CANNABURN) POSITIVE <50 ng/mL This test provides only a preliminary test result. A morespecific alternate chemical method must be used in order toobtain a confirmed analytical result. Gas chromatography/mass spectrometry (GC/MS) is thepreferred confirmatory method. Other chemical confirmationmethods are available. Clinical consideration and professional judgment should be applied to any drug of abusetest result, particularly when preliminary positive resultsare used.Unconfirmed screening results must not be used fornon-medical purposes (e.g., employment testing, legaltesting). URN AMPHETAMINE (test code=AMPHETURN) NEGATIVE <1000 ng/mL URN BARBITURATE (test code=BARBITURN) NEGATIVE <200 ng/mL URN BENZODIAZEPINE (test code=BENZOURN) NEGATIVE <200 ng/mL URN OPIATES (test code=OPIATURN) NEGATIVE <300 ng/mL URN PHENCYCLIDINE (PCP) (test code=PHENCURN) NEGATIVE <25 ng/mL URN METHADONE (test code=METHAURN) NEGATIVE <300 ng/mL Urine Source? Clean CatchCBC W/O [id number] 01:39:00* Test Item Value Reference Range Comments WHITE BLOOD CELL (test code=WBC) 6.4 K/mm3 4.5-12.5 RED BLOOD CELL (test code=RBC) 4.14 mill/mm3 3.7-5.2 HEMOGLOBIN (test code=HGB) 12.5 gram/dL 11.5-15.5 HEMATOCRIT (test code=HCT) 38.4 % 36.0-46.0 MEAN CELL VOLUME (test code=MCV) 92.8 fL 80-98 MEAN CELL HGB (test code=MCH) 30.2 picogram 27.0-33.0 MEAN CELL HGB CONCETRATION (test code=MCHC) 32.6 gram/dL 33.0-36.0 RED CELL DISTRIBUTION WIDTH (test code=RDW) 13.0 % 11.6-16.2 PLATELET COUNT (test code=PLT) 332 K/mm3 150-450 MEAN PLATELET VOLUME (test code=MPV) 9.7 fL 6.7-11.0 BASIC METABOLIC [id number] 01:39:00* Test Item Value Reference Range Comments SODIUM (test code=NA) 138 mmol/L 136-145 POTASSIUM (test code=K) 5.5 mmol/L 3.5-5.1 CHLORIDE (test code=CL) 106.0 mmol/L 98-107 CARBON DIOXIDE (test code=CO2) 26.0 mmol/L 21-32 ANION GAP (test code=GAP) 11.5 10-20 GLUCOSE (test code=GLU) mg/dL 74-106 BLOOD UREA NITROGEN (test code=BUN) 19 mg/dL 7-18 GLOMERULAR FILTRATION RATE (test code=GFR) mL/min >=60 CREATININE (test code=CREAT) mg/dL 0.55-1.02 BUN/CREATININE RATIO (test code=BUN/CREA) 10-20 CALCIUM (test code=CA) mg/dL 8.5-10.1 HEPATIC FUNCTION [id number] 01:39:00* Test Item Value Reference Range Comments TOTAL PROTEIN (test code=PROT) gram/dL 6.4-8.2 ALBUMIN (test code=ALB) 3.3 g/dL 3.4-5.0 GLOBULIN (test code=GLOB) gram/dL 2.7-4.2 ALBUMIN/GLOBULIN RATIO (test code=A/G) 0.75-1.50 BILIRUBIN TOTAL (test code=BILT) mg/dL 0.0-1.0 BILIRUBIN DIRECT (test code=BILD) mg/dL 0.0-0.20 SGOT/AST (test code=AST) IUnit/L 15-37 SGPT/ALT (test code=ALT) IUnit/L 12-78 ALKALINE PHOSPHATASE TOTAL (test code=ALKP) IUnit/L 45-117 [id number] 01:39:00* Test Item Value Reference Range Comments ALCOHOL (test code=ALC) mg/dL 0-3 BASIC METABOLIC [id number] 01:37:00* Test Item Value Reference Range Comments SODIUM (test code=NA) 138 mmol/L 136-145 POTASSIUM (test code=K) 5.5 mmol/L 3.5-5.1 CHLORIDE (test code=CL) 106.0 mmol/L 98-107 CARBON DIOXIDE (test code=CO2) mmol/L 21-32 ANION GAP (test code=GAP) 10-20 GLUCOSE (test code=GLU) mg/dL 74-106 BLOOD UREA NITROGEN (test code=BUN) mg/dL 7-18 GLOMERULAR FILTRATION RATE (test code=GFR) mL/min >=60 CREATININE (test code=CREAT) mg/dL 0.55-1.02 BUN/CREATININE RATIO (test code=BUN/CREA) 10-20 CALCIUM (test code=CA) mg/dL 8.5-10.1 HEPATIC FUNCTION [id number] 01:37:00* Test Item Value Reference Range Comments TOTAL PROTEIN (test code=PROT) gram/dL 6.4-8.2 ALBUMIN (test code=ALB) g/dL 3.4-5.0 GLOBULIN (test code=GLOB) gram/dL 2.7-4.2 ALBUMIN/GLOBULIN RATIO (test code=A/G) 0.75-1.50 BILIRUBIN TOTAL (test code=BILT) mg/dL 0.0-1.0 BILIRUBIN DIRECT (test code=BILD) mg/dL 0.0-0.20 SGOT/AST (test code=AST) IUnit/L 15-37 SGPT/ALT (test code=ALT) IUnit/L 12-78 ALKALINE PHOSPHATASE TOTAL (test code=ALKP) IUnit/L 45-117 [id number] 01:37:00* Test Item Value Reference Range Comments ALCOHOL (test code=ALC) mg/dL 0-3 URINALYSIS [id number] 01:34:00* Test Item Value Reference Range Comments UA COLOR (test code=COLU) LIGHT YELLOW YELLOW UA APPEARANCE (test code=APPU) CLEAR CLEAR UA GLUCOSE DIPSTICK (test code=DGLUU) NEGATIVE mg/dL NEGATIVE UA BILIRUBIN DIPSTICK (test code=BILU) NEGATIVE mg/dL NEGATIVE UA KETONE DIPSTICK (test code=KETU) Negative mg/dL NEGATIVE UA SPECIFIC GRAVITY (test code=SGU) 1.005 1.001-1.035 UA BLOOD DIPSTICK (test code=SRINATH) Negative NEGATIVE UA PH DIPSTICK (test code=HORTENSIA) 8.0 5.0-8.0 UA PROTEIN DIPSTICK (test code=PROU) Negative mg/dL NEGATIVE UA UROBILINIOGEN DIPSTICK (test code=URO) NEGATIVE mg/dL NEGATIVE UA NITRITE DIPSTICK (test code=CLAUDINE) NEGATIVE NEGATIVE UA LEUKOCYTE ESTERASE W REFLEX (test code=LEUUR) NEGATIVE NEGATIVE UA WBC (test code=WBCU) 0-5 #/HPF 0-5 UA RBC (test code=RBCU) 0-2 #/HPF 0-5 UA EPITHELIAL CELLS (test code=EPIU) FEW per HPF FEW UA BACTERIA (test code=BACU) FEW #/HPF NONE Urine Source? Clean CatchDRUGS OF ABUSE SCREEN [id number] 01:34:00* Test Item Value Reference Range Comments URN COCAINE (test code=COCAURN) <300 ng/mL URN CANNABINOIDS (test code=CANNABURN) <50 ng/mL URN AMPHETAMINE (test code=AMPHETURN) <1000 ng/mL URN BARBITURATE (test code=BARBITURN) <200 ng/mL URN BENZODIAZEPINE (test code=BENZOURN) <200 ng/mL URN OPIATES (test code=OPIATURN) <300 ng/mL URN PHENCYCLIDINE (PCP) (test code=PHENCURN) <25 ng/mL URN METHADONE (test code=METHAURN) <300 ng/mL Urine Source? Clean [id number] 15:07:00* Test Item Value Reference Range Comments TROPONIN-I (test code=TROPI) <0.015 ng/mL 0-0.045 HCG SERUM [id number] 22:29:00* Test Item Value Reference Range Comments HCG SERUM QUAL (test code=HCGQL) NEGATIVE NEGATIVE This HCGQL test is NOT applicable for MALE patients.Check with nurse about probable order error.If Tumor Marker Test needed, nurse should order test "HCGTU"(Test #[id number]) [id number] 22:17:00* Test Item Value Reference Range Comments ACETAMINOPHEN (test code=ACET) < 10 mcg/mL 10-30 A RANGE OF 10-30 mcg/mL IS A THERAPEUTIC RANGE. TOXIC CONCENTRATIONS: >150 mcg/mL AT 4 HOURS AFTER INGESTION >=50 mcg/mL AT 12 HOURS AFTER INGESTION [id number] 22:17:00* Test Item Value Reference Range Comments SALICYLATE (test code=TERESA) 2.0 mg/dL 2.8-20.0 URINALYSIS [id number] 21:15:00* Test Item Value Reference Range Comments UA COLOR (test code=COLU) YELLOW YELLOW UA APPEARANCE (test code=APPU) Cloudy CLEAR UA GLUCOSE DIPSTICK (test code=DGLUU) NEGATIVE mg/dL NEGATIVE UA BILIRUBIN DIPSTICK (test code=BILU) NEGATIVE mg/dL NEGATIVE UA KETONE DIPSTICK (test code=KETU) Negative mg/dL NEGATIVE UA SPECIFIC GRAVITY (test code=SGU) 1.024 1.001-1.035 UA BLOOD DIPSTICK (test code=SRINATH) Negative NEGATIVE UA PH DIPSTICK (test code=HORTENSIA) 6.0 5.0-8.0 UA PROTEIN DIPSTICK (test code=PROU) 30 (1+) mg/dL NEGATIVE UA UROBILINIOGEN DIPSTICK (test code=URO) 1.0 E.U./dL mg/dL 0.0-0.2 UA NITRITE DIPSTICK (test code=CLAUDINE) NEGATIVE NEGATIVE UA LEUKOCYTE ESTERASE W REFLEX (test code=LEUUR) 3+ NEGATIVE UA WBC (test code=WBCU) >50 #/HPF 0-5 UA RBC (test code=RBCU) 6-10 #/HPF 0-5 UA EPITHELIAL CELLS (test code=EPIU) MANY per HPF FEW UA BACTERIA (test code=BACU) FEW #/HPF NONE UA MUCUS (test code=MUCU) FEW #/LPF FEW Urine Source? Clean CatchDRUGS OF ABUSE SCREEN [id number] 21:15:00* Test Item Value Reference Range Comments URN COCAINE (test code=COCAURN) NEGATIVE <300 ng/mL URN CANNABINOIDS (test code=CANNABURN) POSITIVE <50 ng/mL This test provides only a preliminary test result. A morespecific alternate chemical method must be used in order toobtain a confirmed analytical result. Gas chromatography/mass spectrometry (GC/MS) is thepreferred confirmatory method. Other chemical confirmationmethods are available. Clinical consideration and professional judgment should be applied to any drug of abusetest result, particularly when preliminary positive resultsare used.Unconfirmed screening results must not be used fornon-medical purposes (e.g., employment testing, legaltesting). URN AMPHETAMINE (test code=AMPHETURN) POSITIVE <1000 ng/mL This test provides only a preliminary test result. A morespecific alternate chemical method must be used in order toobtain a confirmed analytical result. Gas chromatography/mass spectrometry (GC/MS) is thepreferred confirmatory method. Other chemical confirmationmethods are available. Clinical consideration and professional judgment should be applied to any drug of abusetest result, particularly when preliminary positive resultsare used.Unconfirmed screening results must not be used fornon-medical purposes (e.g., employment testing, legaltesting). URN BARBITURATE (test code=BARBITURN) NEGATIVE <200 ng/mL URN BENZODIAZEPINE (test code=BENZOURN) NEGATIVE <200 ng/mL URN OPIATES (test code=OPIATURN) NEGATIVE <300 ng/mL URN PHENCYCLIDINE (PCP) (test code=PHENCURN) NEGATIVE <25 ng/mL URN METHADONE (test code=METHAURN) NEGATIVE <300 ng/mL Urine Source? Clean CatchURINALYSIS [id number] 21:09:00* Test Item Value Reference Range Comments UA COLOR (test code=COLU) YELLOW YELLOW UA APPEARANCE (test code=APPU) Cloudy CLEAR UA GLUCOSE DIPSTICK (test code=DGLUU) NEGATIVE mg/dL NEGATIVE UA BILIRUBIN DIPSTICK (test code=BILU) NEGATIVE mg/dL NEGATIVE UA KETONE DIPSTICK (test code=KETU) Negative mg/dL NEGATIVE UA SPECIFIC GRAVITY (test code=SGU) 1.024 1.001-1.035 UA BLOOD DIPSTICK (test code=SRINATH) Negative NEGATIVE UA PH DIPSTICK (test code=HORTENSIA) 6.0 5.0-8.0 UA PROTEIN DIPSTICK (test code=PROU) 30 (1+) mg/dL NEGATIVE UA UROBILINIOGEN DIPSTICK (test code=URO) 1.0 E.U./dL mg/dL 0.0-0.2 UA NITRITE DIPSTICK (test code=CLAUDINE) NEGATIVE NEGATIVE UA LEUKOCYTE ESTERASE W REFLEX (test code=LEUUR) 3+ NEGATIVE UA WBC (test code=WBCU) >50 #/HPF 0-5 UA RBC (test code=RBCU) 6-10 #/HPF 0-5 UA EPITHELIAL CELLS (test code=EPIU) MANY per HPF FEW UA BACTERIA (test code=BACU) FEW #/HPF NONE UA MUCUS (test code=MUCU) FEW #/LPF FEW Urine Source? Clean CatchDRUGS OF ABUSE SCREEN [id number] 21:09:00* Test Item Value Reference Range Comments URN COCAINE (test code=COCAURN) <300 ng/mL URN CANNABINOIDS (test code=CANNABURN) <50 ng/mL URN AMPHETAMINE (test code=AMPHETURN) <1000 ng/mL URN BARBITURATE (test code=BARBITURN) <200 ng/mL URN BENZODIAZEPINE (test code=BENZOURN) <200 ng/mL URN OPIATES (test code=OPIATURN) <300 ng/mL URN PHENCYCLIDINE (PCP) (test code=PHENCURN) <25 ng/mL URN METHADONE (test code=METHAURN) <300 ng/mL Urine Source? Clean Catch- XR CHEST 1 [id number] 21:07:00 FAX: Tasneem Ordaz DO [place]: [address] St: REG Name: CHRIS PERAZA [facility] : 08/[birth year]/18 76 Age/S: 42/F [address] [facility] Unit #: [id number] Loc: [place] [address] Phys: Tasneem Ordaz DO Acct: [id number] Dis Date: Status: REG ER PHONE #: [phone] Exam Date: 05/11/2018 2100 FAX #: [phone] Reason: palpitations EXAMS: CPT CODE: [id number] XR CHEST 1 V [id number] REASON FOR EXAM: palpitations EXAM ORDER DATE: 05/11/2018 8:09 PM Ordering Max: Tasneem Ordaz DO PROCEDURE: - XR CHEST 1 V CO MPARISON: FINDINGS: Portable AP frontal view of the chest obtaine d at 9:00 PM shows clear lungs without evidence of consolidation. There is no evidence of effusion. The heart size is within normal limits. Pu lmonary vasculatures are unremarkable. IMPRESSION: No active di sease. at 2106 * * Reported and signed by: Heber Brady M.D. CC: Tasneem Ordaz DO Technologist: Kofi Dietrich RT(R) Trnscrd Date/Time/By: 2018 (2106) : By: Michael Orig Print D/T: S: 05/11/2018 (2109) PAGE 1 Signed Report URINALYSIS [id number] 20:55:00* Test Item Value Reference Range Comments UA COLOR (test code=COLU) YELLOW YELLOW UA APPEARANCE (test code=APPU) Cloudy CLEAR UA GLUCOSE DIPSTICK (test code=DGLUU) NEGATIVE mg/dL NEGATIVE UA BILIRUBIN DIPSTICK (test code=BILU) NEGATIVE mg/dL NEGATIVE UA KETONE DIPSTICK (test code=KETU) Negative mg/dL NEGATIVE UA SPECIFIC GRAVITY (test code=SGU) 1.024 1.001-1.035 UA BLOOD DIPSTICK (test code=SRINATH) Negative NEGATIVE UA PH DIPSTICK (test code=HORTENSIA) 6.0 5.0-8.0 UA PROTEIN DIPSTICK (test code=PROU) 30 (1+) mg/dL NEGATIVE UA UROBILINIOGEN DIPSTICK (test code=URO) 1.0 E.U./dL mg/dL 0.0-0.2 UA NITRITE DIPSTICK (test code=CLAUDINE) NEGATIVE NEGATIVE UA LEUKOCYTE ESTERASE W REFLEX (test code=LEUUR) 3+ NEGATIVE UA WBC (test code=WBCU) per HPF 0-5 Urine Source? Clean CatchDRUGS OF ABUSE SCREEN [id number] 20:55:00* Test Item Value Reference Range Comments URN COCAINE (test code=COCAURN) <300 ng/mL URN CANNABINOIDS (test code=CANNABURN) <50 ng/mL URN AMPHETAMINE (test code=AMPHETURN) <1000 ng/mL URN BARBITURATE (test code=BARBITURN) <200 ng/mL URN BENZODIAZEPINE (test code=BENZOURN) <200 ng/mL URN OPIATES (test code=OPIATURN) <300 ng/mL URN PHENCYCLIDINE (PCP) (test code=PHENCURN) <25 ng/mL URN METHADONE (test code=METHAURN) <300 ng/mL Urine Source? Clean CatchBASIC METABOLIC [id number] 20:48:00* Test Item Value Reference Range Comments SODIUM (test code=NA) 137 mmol/L 136-145 POTASSIUM (test code=K) 4.0 mmol/L 3.5-5.1 CHLORIDE (test code=CL) 105.0 mmol/L 98-107 CARBON DIOXIDE (test code=CO2) 25.0 mmol/L 21-32 ANION GAP (test code=GAP) 11.0 10-20 GLUCOSE (test code=GLU) 114 mg/dL 74-106 BLOOD UREA NITROGEN (test code=BUN) 26 mg/dL 7-18 GLOMERULAR FILTRATION RATE (test code=GFR) > 60 mL/min >=60 Estimated GFR by using Modified MDRD formula.Chronic kidney disease is defined as either kidney damageor GFR <60 mL/min/1.73 m2 for >3 months. CREATININE (test code=CREAT) 0.80 mg/dL 0.55-1.02 Note change in reference range due to change in reagent. BUN/CREATININE RATIO (test code=BUN/CREA) 32.1 10-20 CALCIUM (test code=CA) 8.6 mg/dL 8.5-10.1 HEPATIC FUNCTION [id number] 20:48:00* Test Item Value Reference Range Comments TOTAL PROTEIN (test code=PROT) 7.5 gram/dL 6.4-8.2 ALBUMIN (test code=ALB) 3.5 g/dL 3.4-5.0 GLOBULIN (test code=GLOB) 4.0 gram/dL 2.7-4.2 ALBUMIN/GLOBULIN RATIO (test code=A/G) 0.9 0.75-1.50 BILIRUBIN TOTAL (test code=BILT) 0.30 mg/dL 0.0-1.0 BILIRUBIN DIRECT (test code=BILD) 0.10 mg/dL 0.0-0.20 SGOT/AST (test code=AST) 16 IUnit/L 15-37 SGPT/ALT (test code=ALT) 23 IUnit/L 12-78 ALKALINE PHOSPHATASE TOTAL (test code=ALKP) 57 IUnit/L 45-117 Note change in reference range due to change in reagent. [id number] 20:48:00* Test Item Value Reference Range Comments ALCOHOL (test code=ALC) < 3 mg/dL 0.0-3.0 INTERPRETIVE DATA NOTE: POSITIVE SCREENING RESULTS SHOULD BE CONSIDERED PRESUMPTIVE.WHEN COLLECTED FOR MEDICAL PURPOSES ONLY. SPECIMEN WILL NOTBE COLLECTED BY CHAIN OF CUSTODY.IF A CONFIRMATION OF POSITIVE RESULTS IS DESIRED, ACONFIRMATION TEST MUST BE REQUESTED BY THE PHYSICIAN AT ANADDITIONAL CHARGE TO THE PATIENT. BASIC METABOLIC [id number] 20:43:00* Test Item Value Reference Range Comments SODIUM (test code=NA) 137 mmol/L 136-145 POTASSIUM (test code=K) 4.0 mmol/L 3.5-5.1 CHLORIDE (test code=CL) 105.0 mmol/L 98-107 CARBON DIOXIDE (test code=CO2) mmol/L 21-32 ANION GAP (test code=GAP) 10-20 GLUCOSE (test code=GLU) mg/dL 74-106 BLOOD UREA NITROGEN (test code=BUN) mg/dL 7-18 GLOMERULAR FILTRATION RATE (test code=GFR) mL/min >=60 CREATININE (test code=CREAT) mg/dL 0.55-1.02 BUN/CREATININE RATIO (test code=BUN/CREA) 10-20 CALCIUM (test code=CA) mg/dL 8.5-10.1 HEPATIC FUNCTION [id number] 20:43:00* Test Item Value Reference Range Comments TOTAL PROTEIN (test code=PROT) gram/dL 6.4-8.2 ALBUMIN (test code=ALB) g/dL 3.4-5.0 GLOBULIN (test code=GLOB) gram/dL 2.7-4.2 ALBUMIN/GLOBULIN RATIO (test code=A/G) 0.75-1.50 BILIRUBIN TOTAL (test code=BILT) mg/dL 0.0-1.0 BILIRUBIN DIRECT (test code=BILD) mg/dL 0.0-0.20 SGOT/AST (test code=AST) IUnit/L 15-37 SGPT/ALT (test code=ALT) IUnit/L 12-78 ALKALINE PHOSPHATASE TOTAL (test code=ALKP) IUnit/L 45-117 [id number] 20:43:00* Test Item Value Reference Range Comments ALCOHOL (test code=ALC) mg/dL 0-3 CBC W/O [id number] 20:22:00* Test Item Value Reference Range Comments WHITE BLOOD CELL (test code=WBC) 13.1 K/mm3 4.5-12.5 RED BLOOD CELL (test code=RBC) 4.31 mill/mm3 3.7-5.2 HEMOGLOBIN (test code=HGB) 12.7 gram/dL 11.5-15.5 HEMATOCRIT (test code=HCT) 39.8 % 36.0-46.0 MEAN CELL VOLUME (test code=MCV) 92.3 fL 80-98 MEAN CELL HGB (test code=MCH) 29.5 picogram 27.0-33.0 MEAN CELL HGB CONCETRATION (test code=MCHC) 31.9 gram/dL 33.0-36.0 RED CELL DISTRIBUTION WIDTH (test code=RDW) 13.2 % 11.6-16.2 PLATELET COUNT (test code=PLT) 341 K/mm3 150-450 MEAN PLATELET VOLUME (test code=MPV) 9.7 fL 6.7-11.0 CBC W/O [id number] 20:19:00* Test Item Value Reference Range Comments WHITE BLOOD CELL (test code=WBC) K/mm3 4.5-12.5 RED BLOOD CELL (test code=RBC) mill/mm3 3.7-5.2 HEMOGLOBIN (test code=HGB) 12.7 gram/dL 11.5-15.5 HEMATOCRIT (test code=HCT) 39.8 % 36.0-46.0 MEAN CELL VOLUME (test code=MCV) fL 80-98 MEAN CELL HGB (test code=MCH) picogram 27.0-33.0 MEAN CELL HGB CONCETRATION (test code=MCHC) gram/dL 33.0-36.0 RED CELL DISTRIBUTION WIDTH (test code=RDW) % 11.6-16.2 PLATELET COUNT (test code=PLT) K/mm3 150-450 MEAN PLATELET VOLUME (test code=MPV) fL 6.7-11.0
[2018-10-27 00:36] LABS: BASOPHILS % 0.3 % (0.0-1.0); EOSINOPHILS % 0.3 % (0.0-6.0); HEMATOCRIT 34.9 % (34.2-44.1); HEMOGLOBIN 11.9 g/dL (12.0-16.0); LYMPHOCYTES % 29.7 % (18.0-39.1); MEAN CORPUSCULAR HEMOGLOBIN 30.6 pg (28-32); MEAN CORPUSCULAR HGB CONC 34.1 g/dL (31-35); MEAN CORPUSCULAR VOLUME 89.7 fL (81-99); MONOCYTES # (AUTO) 0.9 (0.2-0.8); MONOCYTES % 8.5 % (4.4-11.3); NEUTROPHILS # (AUTO) 6.1 (2.1-6.9); PLATELET COUNT 290 x10e3/uL (140-360); RED BLOOD COUNT 3.89 x10e6/uL (3.6-5.1); RED CELL DISTRIBUTION WIDTH 13.1 % (11.7-14.4)
[2018-10-27 00:39] LABS: BILIRUBIN,URINE NEGATIVE (NEGATIVE); CLARITY,URINE CLOUDY (CLEAR); COLOR,URINE YELLOW (YELLOW); KETONES,URINE NEGATIVE (NEGATIVE); LEUKOCYTE ESTERASE ,URINE MODERATE (NEGATIVE); NITRITE,URINE POSITIVE (NEGATIVE); PROTEIN,URINE DIPSTICK TRACE (NEGATIVE); URINE UROBILINOGEN 0.2 mg/dL (0.2 - 1)
[2018-10-27 00:46] LABS: PREGNANCY TEST, URINE NEGATIVE (NEGATIVE)
[2018-10-27 00:47] LABS: AMPHETAMINES SCREEN,URINE POSITIVE (NEGATIVE); BENZODIAZEPINES SCREEN,URINE POSITIVE (NEGATIVE); PHENCYCLIDINE SCREEN,URINE NEGATIVE (NEGATIVE)
[2018-10-27 00:52] LABS: BACTERIA,URINE MANY /HPF; EPITHELIAL CELLS,URINE MODERATE /LPF; WBC,URINE (MAN) >50 /HPF (0-5)
[2018-10-27 00:58] LABS: SALICYLATE < 5.0 mg/dL (0-30)
--- NOTE | 2018-10-27 01:02 | NUR ---
RECIEVED PATIENT IN ROOM, ALL SUICIDE PRECAUTIONS IN PLACE, PATIENT IN SUPINE POSITION CRYING, BED LOW, PAPER SCRUBS ON PATIENT.
[2018-10-27 01:05] LABS: ALANINE AMINOTRANSFERASE 12 IU/L (0-55); ALBUMIN 3.7 g/dL (3.5-5.0); ALBUMIN/GLOBULIN RATIO 1.1 (0.8-2.0); ALKALINE PHOSPHATASE 51 IU/L (40-150); ANION GAP 14.7 mmol/L (8-16); BLOOD UREA NITROGEN 16 mg/dL (7-26); BUN/CREATININE RATIO 23 (6-25); CALCIUM 9.4 mg/dL (8.4-10.2); CARBON DIOXIDE 24 mmol/L (22-29); CHLORIDE 103 mmol/L (98-107); CREATINE KINASE 53 IU/L (29-168); CREATININE, SERUM 0.71 mg/dL (0.57-1.11); EST GLOMERULAR FILTRATION RATE > 60 ML/MIN (60-); GLUCOSE 113 mg/dL (74-118); POTASSIUM 3.7 mmol/L (3.5-5.1); SODIUM 138 mmol/L (136-145)
[2018-10-27] MEDS ORDERED: CEFTRIAXONE SOD 1 GM VIAL IM ONE (01:15)
[2018-10-27 01:22] LABS: ACETAMINOPHEN < 3 ug/mL (10-30)
--- NOTE | 2018-10-27 02:25 | NUR ---
CALLED MAT TEAM-SPOKE TO SARAH, MAT TEAM WILL CALL BACK WITH JUNIOR
--- NOTE | 2018-10-27 03:07 | NUR ---
SPOKE WITH MAT TEAM AT THIS TIME. ETA 45 MINUTES.
[2018-10-27] MEDS ORDERED: LIDOCAINE 1% 5ML-MPF INJ ONE (03:15)
[2018-10-27] MEDS ORDERED: LIDOCAINE HCL 1% LOCAL INJ 20 ML VIAL ONE (03:17)
[2018-10-27] MEDS ORDERED: LIDOCAINE HCL 1% LOCAL INJ 20 ML VIAL INJ ONE (03:30)
--- NOTE | 2018-10-27 03:50 | NUR ---
MAT TEAM ARRIVED TO ER. DR. MARINA GAVE VERBAL ON PT.
--- NOTE | 2018-10-27 04:01 | NUR ---
MAT TEAM AT BEDSIDE WITH PT.
--- NOTE | 2018-10-27 04:20 | NUR ---
PER MAT TEAM, WAITING FOR [facility] TO CALL FOR ACCEPTANCE.
--- NOTE | 2018-10-27 04:30 | NUR ---
PROVIDED PT WITH A WHATABURGER MEAL, FINGER FOOD APPROPRIATE. PT IN UPRIGHT POSITION EATING. TOLERATING WELL. NO ACUTE DISTRESS NOTED.
[2018-10-27] MEDS ORDERED: IBUPROFEN 600 MG TAB ONE (05:42)
[2018-10-27] MEDS ORDERED: IBUPROFEN 600 MG TAB PO PRN (05:45)
--- NOTE | 2018-10-27 06:52 | NUR ---
WALKING ROUNDS WITH KYLAH ALFORD
[2018-10-27] MEDS ORDERED: TRAZODONE HCL50 MG PO (08:21)
[2018-10-27] MEDS ORDERED: ULTRAM50 MG PO (08:21)
[2018-10-27] MEDS ORDERED: atarax PO (08:43)
[2018-10-27] MEDS ORDERED: LORAZEPAM 1 MG TAB PO ONE (09:20)
[2018-10-27] MEDS ORDERED: TRAMADOL HCL 50 MG TAB PO PRN (10:00)
[2018-10-27] MEDS ORDERED: DULOXETINE HCL 30 MG DELAYED RELEASE PO PRN (10:00)
--- NOTE | 2018-10-27 11:07 | NUR ---
patient expressed she no longer wanted to stay and wanted to leave. expressed that MAT would have to come and re-evaluate patient. called and spoke with Elías Doran and that they would be sending another rep out to see the patient.
--- NOTE | 2018-10-27 11:47 | NUR ---
MAT EDGE CUTTING MACHINE OPERATOR NIYA CALLED AND ETA OF [facility] [employer] TO COME FOR RE EVAL OF PT
--- NOTE | 2018-10-27 12:54 | NUR ---
MAT HERE FOR RE EVAL
--- NOTE | 2018-10-27 14:59 | NUR ---
MAT executive officer special warfare team here, re-evaled patient and determined patient is not at immediate risk and is ok for outpatient follow-up. resources given to patient by MAT executive officer special warfare team.
--- NOTE | 2018-10-27 15:04 | NUR ---
Pt re-evaluated multiple times during my shift. Pt with appropriate affect- denies any complaints. Pt admits to having no place to live- does not have an active plan to harm herself or any one. Pt with no auditory or visual hallucinations. Pt ambulatory with a steady gait, pt re-evaluated by MAT team: cleared from psychiatric stand point. Pt stable for D/C.
--- NOTE | 2018-10-27 15:17 | NUR ---
sitter dc per md. pt to dc per md and mat team. pt was inpt 2 days ago at [facility]. pt requesting place to stay. bridge is full. per case ange we can send pt to [facility]. h.s. notified and cab voucher for [address] [id number]
--- NOTE | 2018-10-27 16:23 | NUR ---
taxi arrived but patient was no longer in ED. nursing staff [facility], [facility] bathroom, [facility], [facility], er[facility], outside of ED. patient not found. emt went to front of hospital and did not find patient on property but did say he observed a woman in simular clothing and hair walking across the street to [place]. driver messenger informed that patient had departed.
== END 2018-10-27 16:26 | disposition home or self-care (01) ==
LOC: ER 23:26
DX: R45.851 Suicidal ideations (principal); F33.1 Major depressive disorder, recurrent, moderate; F15.10 Other stimulant abuse, uncomplicated; F17.210 Nicotine dependence, cigarettes, uncomplicated; N30.90 Cystitis, unspecified without hematuria
CPT/HCPCS: 36415; 80053; 80307; 80320; 80329 ×2; 81001; 81025; 82550; 82553; 84484; 85025; 99284; J0696; J2001

== ENCOUNTER 2019-03-27 01:23 | Emergency (ER) | payer SELFPAY ==
[~2019-03-27] VITALS: Ht 170.2 cm; Wt 81.6 kg
[~2019-03-27 01:23] MED LIST changes: +TRAZODONE HCL50 MG PO; +ULTRAM50 MG PO; +atarax PO
--- NOTE | 2019-03-27 03:09 | NUR ---
MAT TEAM RN AT PTS BEDSIDE
--- NOTE | 2019-03-27 04:00 | NUR ---
PT DENIES SUICIDAL IDEATION AND STATES, "IF I CAN FIND A PLACE TO STAY, I WON'T WANT TO HARM MYSELF."
--- NOTE | 2019-03-27 04:30 | NUR ---
PER ER MD/MAT TEAM REP - PER PTS REQUEST, PT WILL BE TAKEN TO [facility] AT 0700 AM
--- NOTE | 2019-03-27 05:02 | NUR ---
SITTER REMAINS AT PTS BEDSIDE, PT RESTING IN ROOM WITH EYES CLOSED AND NAD NOTED; RESP RATE AND EFFORT ARE WNL, O2 SAT RA 98%
== END 2019-03-27 07:05 | disposition home or self-care (01) ==
LOC: ER 01:23
DX: F60.7 Dependent personality disorder (principal); F13.14 Sedative, hypnotic or anxiolytic abuse with sedative, hypnotic or anxiolytic-induced mood disorder; F17.210 Nicotine dependence, cigarettes, uncomplicated
CPT/HCPCS: 99282